=== PATIENT | male | born 1975 | race African-American/Black ===

== ENCOUNTER 2016-04-23 05:44 | Emergency (ER) | payer OTHER ==
[~2016-04-23] VITALS: Ht 175.3 cm; Wt 67.1 kg
[2016-04-23] MEDS ORDERED: NS IV 1000 ML 1,000 ML IV ONE (05:59)
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
[2016-04-23 06:07] LABS: BASOPHILS % (AUTO) 0 % (0-10); EOSINOPHILS % (AUTO) 0 % (0-10); LYMPHOCYTES # (AUTO) 0.7 X 10^3 (1.0-4.0); LYMPHOCYTES % (AUTO) 6 % (12-44); MEAN CORPUSCULAR HEMOGLOBIN 32 PG (25-34); MEAN CORPUSCULAR HGB CONC 36 G/DL (32-36); MEAN CORPUSCULAR VOLUME 89 FL (80-99); MEAN PLATELET VOLUME 8.8 FL (7.4-10.4); MONOCYTES # (AUTO) 0.5 X 10^3 (0.0-1.0); MONOCYTES % (AUTO) 5 % (0-12); NEUTROPHILS # (AUTO) 10.7 X 10^3 (1.8-7.8); NEUTROPHILS % (AUTO) 90 % (42-75); PLATELET COUNT 222 10^3/uL (130-400); RED BLOOD COUNT 5.02 10^6/uL (4.35-5.85); RED CELL DISTRIBUTION WIDTH 12.1 % (10.0-14.5); WHITE BLOOD COUNT 11.9 10^3/uL (4.3-11.0)
[2016-04-23] MEDS ORDERED: fentaNYL INJECTION 100 MCG/2 ML AMP IVP STA (06:14)
[2016-04-23 06:15] VITALS: BP 136/75
[2016-04-23 06:21] LABS: BAND NEUTROPHILS 0 %; BASOPHILS % (MANUAL) 0 %; EOSINOPHILS % (MANUAL) 0 %; LYMPHOCYTES % (MANUAL) 6 %; NEUTROPHILS % (MANUAL) 90 %; POIKILOCYTOSIS SLIGHT
[2016-04-23] MEDS ORDERED: LACTATED RINGERS 1,000 ML IV ONE (06:22)
[2016-04-23 06:47] LABS: ACETAMINOPHEN < 10 UG/ML (10-30); ALANINE AMINOTRANSFERASE 20 U/L (0-55); ALBUMIN 4.6 G/DL (3.2-4.5); ALCOHOL 128 MG/DL (<10); ANION GAP 13 MMOL/L (5-14); ASPARTATE AMINO TRANSFERASE 31 U/L (5-34); BILIRUBIN,TOTAL 0.4 MG/DL (0.1-1.0); BLOOD UREA NITROGEN 13 MG/DL (7-18); BUN/CREATININE RATIO 17; CARBON DIOXIDE 20 MMOL/L (21-32); CHLORIDE 107 MMOL/L (98-107); CREATININE SERUM 0.76 MG/DL (0.60-1.30); GFR ESTIMATED > 60; GLUCOSE 113 MG/DL (70-105); MAGNESIUM 2.3 MG/DL (1.8-2.4); SALICYLATE < 5.0 MG/DL (5.0-20.0); SODIUM 140 MMOL/L (135-145); TOTAL PROTEIN 7.3 G/DL (6.4-8.2)
[2016-04-23 06:58] VITALS: BP 116/79
[2016-04-23 06:58] LABS: TROPONIN I < 0.30 NG/ML (<0.30)
[2016-04-23] MEDS ORDERED: NS 100 ML (IVPB) BAG IV ONE (07:15)
[2016-04-23] MEDS ORDERED: CATHETER FLUSH 10 ML SYR IV PRN (07:15)
[2016-04-23] MEDS ORDERED: IOHEXOL 350 MG/ML 100 ML (OMNIPAQUE 350) VIAL IV ONE (07:15)
[2016-04-23 07:27] LABS: BILIRUBIN,URINE NEGATIVE (NEGATIVE); KETONES,URINE NEGATIVE (NEGATIVE); LEUKOCYTE ESTERASE ,URINE NEGATIVE (NEGATIVE); NITRITE,URINE NEGATIVE (NEGATIVE); PH,URINE 6 (5-9); PROTEIN,URINE 2+ (NEGATIVE); UROBILINOGEN,URINE NORMAL (NORMAL)
[2016-04-23 07:34] LABS: WBC,URINE RARE /HPF
--- NOTE | 2016-04-23 08:13 | Diagnostic Imaging Report ---
INDICATION: Patient found down PA chest obtained at 8:06 a.m. Heart and mediastinal silhouette are normal in appearance. The lungs are clear. There is no pneumothorax or pleural fluid. There is no overt bony abnormality in the chest. IMPRESSION: Negative chest. Dictated by: Dictated on workstation # [id number]
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
[2016-04-23] MEDS ORDERED: fentaNYL INJECTION 100 MCG/2 ML AMP IVP ONE (08:15)
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
[2016-04-23 10:46] VITALS: BP 129/72
[2016-05-15] MEDS ORDERED: SENN-20 PO (09:15)
[2016-05-15] MEDS ORDERED: GABA-488 PO (09:15)
[2016-05-15] MEDS ORDERED: OXYC-464 PO (09:15)
[2016-05-15] MEDS ORDERED: BACL10TA PO (09:15)
== END 2016-04-23 10:48 | disposition short-term general hospital (02) ==
LOC: EDUNIT# 05:44 → ER 05:46
DX: T68.XXXA Hypothermia, initial encounter (principal); T79.6XXA Traumatic ischemia of muscle, initial encounter; F10.129 Alcohol abuse with intoxication, unspecified; R29.898 Other symptoms and signs involving the musculoskeletal system; M47.812 Spondylosis without myelopathy or radiculopathy, cervical region; S12.401A Unspecified nondisplaced fracture of fifth cervical vertebra, initial encounter for closed fracture; Y90.6 Blood alcohol level of 120-199 mg/100 ml; W17.89XA Other fall from one level to another, initial encounter; Y99.8 Other external cause status
CPT/HCPCS: 36415; 51702; 70450; 71010; 71260; 72125; 72170; 74177; 80053; 80306; 80320; 80329; 81000; 82550; 83735; 84484; 85007; 85027; 93005; 93041; 96374; 96376

== ENCOUNTER 2016-04-30 11:10 | Inpatient (IN) | payer OTHER ==
[~2016-04-30] VITALS: Ht 175.3 cm; Wt 67.1 kg
[2016-04-30 17:20] VITALS: BP 108/73
[2016-04-30] MEDS ORDERED: FLU TRIvalent (5 YOA+) 2016-17 (AFLURIA) 0.5 ML IM ONE (17:30)
[2016-04-30] MEDS: oxyCODONE/APAP 7.5-325 MG (PERCOCET 7.5) TABLET PO PRN ×2 (18:34→23:01)
[2016-04-30] MEDS: BACITRACIN OINTMENT 28 GM TUBE TOP SCH (19:40)
[2016-04-30] MEDS ORDERED: MILK OF MAGNESIA 400 MG/5 ML 30 ML UDC PO PRN (20:00)
[2016-04-30] MEDS: GABAPENTIN 100 MG (NEURONTIN) CAP PO SCH (21:11)
[2016-04-30] MEDS: SENNA W/DOCUSATE (SENOKOT S) TABLET PO SCH (21:11)
[2016-04-30] MEDS: DOCUSATE SODIUM 100 MG (COLACE) CAP PO SCH (21:11)
[2016-04-30] MEDS: BACLOFEN 10 MG (LIORESAL) TAB PO PRN (21:12)
[2016-05-01] MEDS: BACLOFEN 10 MG (LIORESAL) TAB PO PRN ×2 (05:27→15:53)
[2016-05-01] MEDS: oxyCODONE/APAP 7.5-325 MG (PERCOCET 7.5) TABLET PO PRN ×4 (05:27→20:03)
[2016-05-01 05:41] VITALS: BP 109/64
[2016-05-01 05:58] LABS: BASOPHILS % (AUTO) 0 % (0-10); EOSINOPHILS # (AUTO) 0.1 10^3/uL (0.0-0.3); EOSINOPHILS % (AUTO) 2 % (0-10); LYMPHOCYTES # (AUTO) 1.4 X 10^3 (1.0-4.0); LYMPHOCYTES % (AUTO) 24 % (12-44); MEAN CORPUSCULAR HEMOGLOBIN 32 PG (25-34); MEAN CORPUSCULAR HGB CONC 35 G/DL (32-36); MEAN CORPUSCULAR VOLUME 91 FL (80-99); MEAN PLATELET VOLUME 8.5 FL (7.4-10.4); MONOCYTES # (AUTO) 0.7 X 10^3 (0.0-1.0); MONOCYTES % (AUTO) 12 % (0-12); NEUTROPHILS # (AUTO) 3.5 X 10^3 (1.8-7.8); NEUTROPHILS % (AUTO) 62 % (42-75); PLATELET COUNT 258 10^3/uL (130-400); RED BLOOD COUNT 4.48 10^6/uL (4.35-5.85); RED CELL DISTRIBUTION WIDTH 11.8 % (10.0-14.5); WHITE BLOOD COUNT 5.6 10^3/uL (4.3-11.0)
[2016-05-01 06:23] LABS: ALANINE AMINOTRANSFERASE 23 U/L (0-55); ALBUMIN 3.6 G/DL (3.2-4.5); ANION GAP 10 MMOL/L (5-14); ASPARTATE AMINO TRANSFERASE 15 U/L (5-34); BILIRUBIN,TOTAL 0.3 MG/DL (0.1-1.0); BLOOD UREA NITROGEN 24 MG/DL (7-18); BUN/CREATININE RATIO 26; CALCIUM 8.9 MG/DL (8.5-10.1); CARBON DIOXIDE 24 MMOL/L (21-32); CHLORIDE 101 MMOL/L (98-107); CREATININE SERUM 0.94 MG/DL (0.60-1.30); GFR ESTIMATED > 60; GLUCOSE 111 MG/DL (70-105); POTASSIUM 4.6 MMOL/L (3.6-5.0); SODIUM 135 MMOL/L (135-145); TOTAL PROTEIN 6.3 G/DL (6.4-8.2)
[2016-05-01] MEDS: GABAPENTIN 100 MG (NEURONTIN) CAP PO SCH ×3 (08:11→20:03)
[2016-05-01] MEDS: SENNA W/DOCUSATE (SENOKOT S) TABLET PO SCH ×2 (08:11→20:03)
[2016-05-01] MEDS: DOCUSATE SODIUM 100 MG (COLACE) CAP PO SCH ×2 (08:11→20:03)
--- NOTE | 2016-05-01 10:08 | ST Cognitive Linguistic Eval ---
Speech Evaluation-General Medical Diagnosis Cervical Fracture resulting in Right Sided Weakness Onset Date: Apr 30, 2016 Therapy Diagnosis Therapy Diagnosis: Cognitive Linguistic Skills WNL Precautions Precautions/Isolations: Fall Prevention, Standard Precautions Referral Referring Physician: Dr. Mahendra Nguyen Reason for Referral: Evaluation/Treatment Cognitive, Speech, and Language Evaluation Speech PLF-Current Status Prior Level of Function The patient denied prior challenges with speech, language, or cognition prior to admission. Subjective The patient was recently admitted to [facility] following cervical spine surgery (due to fracture) resulting in right sided weakness. The patient greeted the clinician appropriately and agreed to participate in the cognitive evaluation on this date. Language Eval: Auditory Comprehends Simple Yes/No Ques: Functional Indent/Objects Multiple Graham: Functional Ident/Pics in Multiple Graham: Functional Follows 1-Step Commands: Functional Follows Complex Directions: Functional Follows General Conversations: Functional Language Eval: Verbal Language Completes Spontaneous Greeting: Functional Produces Auto, Serial Info: Functional Imitates Simple Words/Phrases: Functional Word Finding: Functional Requests Basic Needs: Functional States Basic Personal Info: Functional Expresses Complex Ideas: Functional Cognitive Patient Orientation The patient is oriented to month, date, day of week, year, and location ( independently). Objective Cognitive Domain Attention: WNL Memory: WNL Problem Solving: Functional Executive Functions: WNL Objective Impression The patient demonstrated cognitive linguistic skills grossly within normal limits and appropriate for completion of ADL's. Communication/Social Cognition Comprehension: 5 Expression: 6 Social Interaction: 6 Problem Solvin Memory: 5 Speech Patient Assess Expression of Ideas/Wants: Expression (4) Understanding Vebal Content: Understands (4) Brief Interview-Mental Status: Yes Repetition of Three Words: Three (3) Temporal Orientation: Year: Correct (3) Temporal Orientation: Month: Accurate within 5 days(2) Temporal Orientation: Day: Correct (1) Recall : Wear to say "Sock": Yes, no cue required (2) Recall : Color: Yes, no cue required (2) Recall : Bed: Yes, no cue required (2) Speech-Plan Treatment Plan Speech Therapy Treatment Plan: Discontinue ST Evaluation, only. Rehab Potential: Good Safety Risks/Education Teaching Recipient: Patient Teaching Methods: Discussion Response to Teaching: Verbalize Understanding Education Topics Provided: Results, Plan of Care Time Speech Therapy Time In: 09:30 Speech Therapy Time Out: 09:45 Total Billed Time: 15 Billed Treatment Time 1, LUISANA MCKEON May 01, 2016 10:08
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
--- NOTE | 2016-05-01 14:22 | Occupational Ther Daily Note ---
OT Current Status-Daily Note Subjective No pain reported. Appearance Pt. in bed. Son in room. Pt. on phone using left hand throughout treatment session. Mental Status/Objective Patient Orientation: Person, Place, Time, Situation Functional [place] Measure 0=Not Assessed/NA 4=Minimal Assistance 1=Total Assistance 5=Supervision or Setup 2=Maximal Assistance 6=Modified [place] 3=Moderate Assistance 7=Complete [place] ADL-Treatment Functional [place] Measure 0=Not Assessed/NA 4=Minimal Assistance 1=Total Assistance 5=Supervision or Setup 2=Maximal Assistance 6=Modified [place] 3=Moderate Assistance 7=Complete IndependenceIRFPAI Quality Coding Scale 6 Independent with activity with or without an assistive device 5 Patient requires set up or clean up by helper. Patient completes activity by themselves 4 Supervision or touching assist (CGA). [place] provide cues , steadying assist 3 The helper provides less than half the effort to complete the activity 2 The helper provides more than half the effort to complete the activity 1 Dependent. The helper does all the effort to complete an activity 7 Patient refused to complete or attempt activity 9 The patient did not perform the activity before the current illness or injury 88 Not attempted due to Medical conditions or safety concerns Other Treatment Pt. reports that his soft collar is too tight in bed. Attempted to find pt. bigger collar, but one is not available. OT added soft fabric and velcro to existing collar, to make it more comfortable. Worked on right UE mobility in bed. Note that pt. has approximately 90 degrees active flexion in right shoulder at bed level. Is able to bend right elbow, but becomes fatigued after several motions. Pt. then able to work on active wrist extension, but no functional wrist flexion present. Very little finger flexion noted. OT applied gentle PROM stretch to right shoulder to approximately 110 degrees. No pain noted. Scapular glide intact. No subluxation noted. Facilitated active movements in shoulder/elbow, as well as active movements against resistance. Note that pt. fatigues quickly with continued exercises. Completed gentle stretch to right fingers into extension. All needs met in room. Education OT Patient Education: Correct positioning, Exercise program Teaching Recipient: Patient Teaching Methods: Demonstration, Discussion Response to Teaching: Verbalize Understanding, Return Demonstration OT Short Term Goals Short Term Goals Time Frame: May 08, 2016 Eating(FIM): 6 Grooming(FIM): 5 Bathing(FIM): 5 Transfers (B,C,W/C) (FIM): 4 Toilet/Commode Transfer(FIM): 4 Shower Transfer(FIM): 4 Additional Short Term Goals: 1-Demonstrate ADL Tasks, 2-Verbalize Understanding , 3-ImproveStrength/Devin 1=Demonstrate adherence to instructed precautions during ADL tasks. 2=Patient will verbalize/demonstrate understanding of assistive devices/ modifications for ADL. 3=Patient will improve strength/tolerance for activity to enable patient to perform ADL's. OT Halfway Goals Halfway Goals Time Frame: May 22, 2016 Eating (FIM): 6 Eating (QC): 6 Groomin Oral Hygiene (QC): 6 Bathing(FIM): 5 Shower/Bathe Self (QC): 5 Upper Body Dressing(FIM): 6 Upper Body Dressing (QC): 6 Lower Body Dressing(FIM): 6 Lower Body Dressing (QC): 6 On/Off Footwear (QC): 6 Toileting(FIM): 6 Toileting Hygiene (QC): 6 Transfers (B,C,W/C) (FIM): 5 Toilet/Commode Transfer(FIM): 6 Toilet/Commode Transfer (QC): 6 Shower Transfer(FIM): 5 Additional Goals: 1-Demonstrate ADL Tasks, 2-Verbalize Understanding, 3- ImproveStrength/Devin 1=Demonstrate adherence to instructed precautions during ADL tasks. 2=Patient will verbalize/demonstrate understanding of assistive devices/ modifications for ADL. 3=Patient will improve strength/tolerance for activity to enable patient to perform ADL's. OT Education/Plan Problem List/Assessment Assessment: Decreased Activ Tolerance, Decreased UE Strength, Impaired Bed Mobility, Impaired Coordination, Impaired I ADL's, Impaired Self-Care Skills Discharge Recommendations Plan/Recommendations: Continue POC Therapy D/C Recommendations: Home w/ Family Support, Occupational Therapy Home Care, Scheduled Assistance Equpiment Recommendations-D/C: Extended Bath Bench, Hip Kit Treatment Plan/Plan of Care Treatment,Training & Education: Yes Patient would benefit from OT for education, treatment and training to promote independence in ADL's, mobility, safety and/or upper extremity function for ADL' s. Plan of Care: ADL Retraining, Caregiver Training, Functional Mobility, Group Exercise/Act as Ind, UE Funct Exercise/Act Treatment Duration: May 22, 2016 Visits Per Week: 10-12 Minutes/Day (M-F): 60-90 Minutes/Day (Sat/Chan): PRN Agreement: Yes Rehab Potential: Good Time/GCodes Start Time: 11:00 Stop Time: 11:30 Total Time Billed (hr/min): 30 Billed Treatment Time 1, EX x 2 KAVITA ORTEGA OT May 01, 2016 14:22
--- NOTE | 2016-05-01 14:32 | Physical Therapy Daily Note ---
PT Daily Note-Current Subjective Agrees to PT. No complaints. Transfers Functional [place] Measure 0=Not Assessed/NA 4=Minimal Assistance 1=Total Assistance 5=Supervision or Setup 2=Maximal Assistance 6=Modified [place] 3=Moderate Assistance 7=Complete IndependenceIRFPAI Quality Coding Scale 6 Independent with activity with or without an assistive device 5 Patient requires set up or clean up by helper. Patient completes activity by themselves 4 Supervision or touching assist (CGA). [place] provide cues , steadying assist 3 The helper provides less than half the effort to complete the activity 2 The helper provides more than half the effort to complete the activity 1 Dependent. The helper does all the effort to complete an activity 7 Patient refused to complete or attempt activity 9 The patient did not perform the activity before the current illness or injury 88 Not attempted due to Medical conditions or safety concerns Min assist with sup to/from sit EOB. Pt needs mod assist to stand initially. Pt needed mod assist to transfer on/off the nu step. Gait Training Gait with FWW with platform with min assist with PAT to provide DF assist on the right. Gt 150 ft x 2. Pt also ambulated x 30 ft x 2 with turns with min assist. Up/down curb step with min assist and assist to fully lift right foot onto step. Stair Training Stairs (FIM): 1 #of Steps: 1 1 Step (curb) (QC): 4 4 Steps (QC): 88 12 Steps (QC): 88 Stairs: Pattern: Step to Exercises NuStep Minutes: 15 NuStep Workload: 5 Assessment Current Status: Good Progress Pt very motivated and did well with treatment this pm. Pt already using compensatory techniques to improve mobility. PT Short Term Goals Short Term Goals Time Frame: May 08, 2016 Transfers (B,C,W/C) (FIM): 4 Gait (FIM): 4 PT [facility] Goals Manager Transition Goals PT Manager Transition Goals Time Frame: May 22, 2016 Transfers (B,C,W/C) (FIM): 6 Sit to Lying (QC): 6 Lying-Sitting on Side/Bed(QC): 6 Sit to Stand (QC): 6 Roll Left to Right (QC): 6 Chair/Bwh-xu-Serxw Xfer(QC): 6 Car Transfer (QC): 6 Does the Patient Walk: Yes Gait (FIM): 6 Gait distance (FIM): 3=150 ft Walk 10 feet (QC): 6 Walk 10ft-Uneven Surface(QC): 6 Walk 50ft with 2 Turns (QC): 6 Walk 150 ft (QC): 6 Gait Level of Assist: 6 Gait Assistive Device: Walker Platform (or cand) Does the Pt use WC or Scooter?: No Stairs (FIM): 6 # of Steps: 12 1 Step (curb) (QC): 6 4 Steps (QC): 6 12 Steps (QC): 6 Picking up an Object (QC): 5 PT Plan Problem List Problem List: Activity Tolerance, Functional Strength, Safety Treatment/Plan Treatment Plan: Continue Plan of Care Treatment Plan: Bed Mobility, Education, Functional Activity Devin, Functional Strength, Group Therapy, Gait, Safety, Therapeutic Exercise, Transfers Treatment Duration: May 22, 2016 Visits Per Week: 10-15 Minutes/Day (M-F): 60-90 Safety Risks/Education Patient Education: Steps Teaching Recipient: Patient Teaching Methods: Demonstration, Discussion Response to Teaching: Reinforcement Needed Time/GCodes Time In: 1330 Time Out: 1400 Total Billed Treatment Time: 30 Total Billed Treatment visit GT 15 EX 15 DEACON SALAZAR PT May 01, 2016 14:32
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
[2016-05-01 18:06] VITALS: BP 104/62
[2016-05-01] MEDS: LACTULOSE SYRUP 10GM/15ML (ENULOSE) 30ML UDC PO PRN (20:08)
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
[2016-05-02] MEDS: oxyCODONE/APAP 7.5-325 MG (PERCOCET 7.5) TABLET PO PRN ×4 (00:53→18:04)
[2016-05-02] MEDS: BACLOFEN 10 MG (LIORESAL) TAB PO PRN ×3 (00:53→18:04)
[2016-05-02 05:53] VITALS: BP 107/66
--- NOTE | 2016-05-02 08:38 | Progress Note (SOAP) ---
Subjective Subjective/Events-last exam cervical spine fracture. Constipation. To use suppository today. Objective Exam Vital Signs Date Time Temp Pulse Resp B/P (MAP) Pulse Ox O2 Delivery O2 Flow Rate FiO2 05/02/16 05:53 98.1 61 18 107/66 100 Room Air 05/01/16 20:53 Room Air 05/01/16 18:06 97.4 70 16 104/62 97 05/01/16 09:00 Room Air I & O 05/02/16 07:00 Intake Total 1600 ml Output Total 650 ml Balance 950 ml Capillary Refill : General Appearance: No Apparent Distress HEENT: Normal ENT Inspection Neck: Other (wearing a collar) Respiratory: Chest Non Tender, No Accessory Muscle Use, No Respiratory Distress Cardiovascular: Regular Rate, Rhythm, No Murmur Gastrointestinal: non tender, soft Assessment/Plan Assessment/Plan Assess & Plan/Chief Complaint cervical fracture. Ambulatory dysfunction. t history of alcoholism. History of tobaccoism. . 05/02/16. Cervical fracture. Ambulatory dysfunction. History of alcoholism. History of tobaccoism. Patient still constipated Clinical Quality Measures DVT/VTE Risk/Contraindication: Risk Factor Score Per Nursin RFS Level Per Nursing on Admit: 4+=Very High BURT GARZA DO May 02, 2016 08:38
[2016-05-02] MEDS: GABAPENTIN 100 MG (NEURONTIN) CAP PO SCH ×3 (08:50→20:29)
[2016-05-02] MEDS: DOCUSATE SODIUM 100 MG (COLACE) CAP PO SCH ×2 (08:50→20:29)
[2016-05-02] MEDS: SENNA W/DOCUSATE (SENOKOT S) TABLET PO SCH ×2 (08:50→20:30)
--- NOTE | 2016-05-02 10:53 | Physical Therapy Daily Note ---
PT Daily Note-Current Subjective Agreeable. Reports he is a bit sore today for therapy yesterday. But reports "that's ok, I want to get stronger." Mental Status Patient Orientation: Person, Place, Time, Situation Transfers Functional [place] Measure 0=Not Assessed/NA 4=Minimal Assistance 1=Total Assistance 5=Supervision or Setup 2=Maximal Assistance 6=Modified [place] 3=Moderate Assistance 7=Complete IndependenceIRFPAI Quality Coding Scale 6 Independent with activity with or without an assistive device 5 Patient requires set up or clean up by helper. Patient completes activity by themselves 4 Supervision or touching assist (CGA). [place] provide cues , steadying assist 3 The helper provides less than half the effort to complete the activity 2 The helper provides more than half the effort to complete the activity 1 Dependent. The helper does all the effort to complete an activity 7 Patient refused to complete or attempt activity 9 The patient did not perform the activity before the current illness or injury 88 Not attempted due to Medical conditions or safety concerns Transfers (B, C, W/C) (FIM): 4 Supine to/from Sit: 4 Sit to/from Stand: 4 Min assist with bed mobility and transfers. Min assist with skilled cues for hand placemnt for sit to from stand transfer. Sup to from sit x 3 reps. Sit to from stand x 10 reps throughout course of treatment. Gait Training Does the Patient Walk?: Yes Gait (FIM): 4 Distance: 150 ft x 3; 50 ft x 2 Gait Assistive Device: Walker Platform PAT used to promote DF on the right. Pt able to clear right foot 50% of the time and drags the other 50%. Work on hip flexion to promote foot clearing. Skilled cues to compensate. Exercises Supine Ex: Bridging, Ankle pumps, Pelvic tilt, Quad Set, Glut sets, Heel Slides , Short Arc Quads, Straight leg raise, Hip abd/add Supine Reps: 15 (2# on the left;to promote strength for functional transfers and strength) Seated Therapy Exercises: Long arc quads, Hip flexion Seated Reps: 15 (2# on the left) NuStep Minutes: 10 NuStep Workload: 4 (For LE strength and functional act tolerance for mod indep tfr and gait) Assessment Current Status: Good Progress Strngth progressing as is functional gait. Motivated. PT Short Term Goals Short Term Goals Time Frame: May 08, 2016 Transfers (B,C,W/C) (FIM): 4 Gait (FIM): 4 PT Fpc Goals Fpc Goals PT Elevator Starter Goals Time Frame: May 22, 2016 Transfers (B,C,W/C) (FIM): 6 Sit to Lying (QC): 6 Lying-Sitting on Side/Bed(QC): 6 Sit to Stand (QC): 6 Roll Left to Right (QC): 6 Chair/Vfh-hf-Oxuxs Xfer(QC): 6 Car Transfer (QC): 6 Does the Patient Walk: Yes Gait (FIM): 6 Gait distance (FIM): 3=150 ft Walk 10 feet (QC): 6 Walk 10ft-Uneven Surface(QC): 6 Walk 50ft with 2 Turns (QC): 6 Walk 150 ft (QC): 6 Gait Level of Assist: 6 Gait Assistive Device: Walker Platform (or cand) Does the Pt use WC or Scooter?: No Stairs (FIM): 6 # of Steps: 12 1 Step (curb) (QC): 6 4 Steps (QC): 6 12 Steps (QC): 6 Picking up an Object (QC): 5 PT Plan Problem List Problem List: Activity Tolerance, Functional Strength, Safety, Balance, Gait, Transfer, Bed Mobility Treatment/Plan Treatment Plan: Continue Plan of Care Treatment Plan: Bed Mobility, Education, Functional Activity Devin, Functional Strength, Group Therapy, Gait, Safety, Therapeutic Exercise, Transfers Treatment Duration: May 22, 2016 Visits Per Week: 10-15 Minutes/Day (M-F): 60-90 Minutes/Day (Sat/Chan): prn Safety Risks/Education Patient Education: Gait Training, Transfer Techniques Teaching Recipient: Patient Teaching Methods: Demonstration, Discussion Time/GCodes Time In: 850 Time Out: 950 Total Billed Treatment Time: 60 Total Billed Treatment visit GT 15 FA 15 EX 30 DEACON SALAZAR PT May 02, 2016 10:53
--- NOTE | 2016-05-02 11:00 | Occupational Ther Daily Note ---
OT Current Status-Daily Note Subjective Pt alert, sitting in recliner. Pt agreed to therapy. Pt stated that his arms were stiff from therapy yesterday. Mental Status/Objective Patient Orientation: Person, Place, Time, Situation Functional [place] Measure 0=Not Assessed/NA 4=Minimal Assistance 1=Total Assistance 5=Supervision or Setup 2=Maximal Assistance 6=Modified [place] 3=Moderate Assistance 7=Complete [place] ADL-Treatment After set up, pt was able to complete upper body bathing. Pt demonstrates movement with R UE, approximately 90-100 degrees shldr flexion. R Elbow flex/ ext noted though not to end range and weak. Pt completed tasks with L UE. AE introduced (dressing stick, long handle shoe horn, long handle sponge, cyber defense forensics analyst, sock aide). With assistance pt was able to doff socks using drsg stick with min A then used sock aide to don sock with mod A. Pt had on pants and did not want to change them and only had hospital gown available for upper body dressing. Pt demonstrated ability to move L LE up toward body so he can complete ADLs. R LE extends unable at this time to flex and bring up to body. Pt stated that he had already completed oral care and that nrsg cleansed lower body good enough the night before. Family and friends in room at end of treatment. After therapy, pt sitting in recliner with call light/phone in reach. All needs met in room. Functional [place] Measure 0=Not Assessed/NA 4=Minimal Assistance 1=Total Assistance 5=Supervision or Setup 2=Maximal Assistance 6=Modified [place] 3=Moderate Assistance 7=Complete IndependenceIRFPAI Quality Coding Scale 6 Independent with activity with or without an assistive device 5 Patient requires set up or clean up by helper. Patient completes activity by themselves 4 Supervision or touching assist (CGA). [place] provide cues , steadying assist 3 The helper provides less than half the effort to complete the activity 2 The helper provides more than half the effort to complete the activity 1 Dependent. The helper does all the effort to complete an activity 7 Patient refused to complete or attempt activity 9 The patient did not perform the activity before the current illness or injury 88 Not attempted due to Medical conditions or safety concerns Bathing (FIM): 2 OT Short Term Goals Short Term Goals Time Frame: May 08, 2016 Eating(FIM): 6 Grooming(FIM): 5 Bathing(FIM): 5 Transfers (B,C,W/C) (FIM): 4 Toilet/Commode Transfer(FIM): 4 Shower Transfer(FIM): 4 Additional Short Term Goals: 1-Demonstrate ADL Tasks, 2-Verbalize Understanding , 3-ImproveStrength/Devin 1=Demonstrate adherence to instructed precautions during ADL tasks. 2=Patient will verbalize/demonstrate understanding of assistive devices/ modifications for ADL. 3=Patient will improve strength/tolerance for activity to enable patient to perform ADL's. OT Long-Term Goals Product Examiner Goals Time Frame: May 22, 2016 Eating (FIM): 6 Eating (QC): 6 Groomin Oral Hygiene (QC): 6 Bathing(FIM): 5 Shower/Bathe Self (QC): 5 Upper Body Dressing(FIM): 6 Upper Body Dressing (QC): 6 Lower Body Dressing(FIM): 6 Lower Body Dressing (QC): 6 On/Off Footwear (QC): 6 Toileting(FIM): 6 Toileting Hygiene (QC): 6 Transfers (B,C,W/C) (FIM): 5 Toilet/Commode Transfer(FIM): 6 Toilet/Commode Transfer (QC): 6 Shower Transfer(FIM): 5 Additional Goals: 1-Demonstrate ADL Tasks, 2-Verbalize Understanding, 3- ImproveStrength/Devin 1=Demonstrate adherence to instructed precautions during ADL tasks. 2=Patient will verbalize/demonstrate understanding of assistive devices/ modifications for ADL. 3=Patient will improve strength/tolerance for activity to enable patient to perform ADL's. OT Education/Plan Discharge Recommendations Plan/Recommendations: Continue POC Treatment Plan/Plan of Care Patient would benefit from OT for education, treatment and training to promote independence in ADL's, mobility, safety and/or upper extremity function for ADL' s. Plan of Care: ADL Retraining, Caregiver Training, Functional Mobility, Group Exercise/Act as Ind, UE Funct Exercise/Act Treatment Duration: May 22, 2016 Visits Per Week: 10-12 Minutes/Day (M-F): 60-90 Minutes/Day (Sat/Chan): PRN Agreement: Yes Rehab Potential: Good Time/GCodes Start Time: 10:00 Stop Time: 11:00 Total Time Billed (hr/min): 60 Billed Treatment Time 1 visit-ADL 3 (50 min) FA 1 (10 min) DEACON CARPENTER May 02, 2016 10:59
[2016-05-02] MEDS: LACTULOSE SYRUP 10GM/15ML (ENULOSE) 30ML UDC PO PRN ×2 (13:17→20:29)
--- NOTE | 2016-05-02 15:03 | Therapy Group Daily Note ---
Therapy Daily Group Note Patient Education Topic Home Safety Exercises LE Seated Exercise, Balance, Sit to/from Stand, Stretching, Gross Motor, Fine Motor Other/Notes Participated in OT/PT therapeutic group activity. Tasks performed with intent to stimulate skills needed for discharge plan. Ambulated to group 75ft with CGA using platform walker. Performed seated and standing exercises. Worked on dynamic balance in standing to perform dice and abrams bag toss. Worked on multi step planning during high attention activities. Cognitive facilitation during group to stimulate critical thinking and educate on home safety. Pt was able to stand with CGA for balance. He ambulated 75ft with a FWW and CGA back to his room. Start Time: 13:00 Stop Time: 14:15 Total Billed Treatment Time: 75 Total Billed Treatment visit, therapeutic group 75 minutes ZEINAB LEE PT May 02, 2016 15:03
[2016-05-02 17:29] VITALS: BP 117/69
[2016-05-02] MEDS: BACITRACIN OINTMENT 28 GM TUBE TOP SCH (18:11)
[2016-05-02] MEDS: BISACODYL 10 MG SUPP (DULCOLAX) PR PRN (20:29)
[2016-05-03] MEDS: oxyCODONE/APAP 7.5-325 MG (PERCOCET 7.5) TABLET PO PRN ×4 (02:16→19:29)
[2016-05-03] MEDS: BACLOFEN 10 MG (LIORESAL) TAB PO PRN ×2 (02:16→12:57)
[2016-05-03 05:10] VITALS: BP 108/65
[2016-05-03] MEDS: GABAPENTIN 100 MG (NEURONTIN) CAP PO SCH ×3 (08:05→19:28)
[2016-05-03] MEDS: SENNA W/DOCUSATE (SENOKOT S) TABLET PO SCH ×2 (08:05→19:28)
[2016-05-03] MEDS: DOCUSATE SODIUM 100 MG (COLACE) CAP PO SCH ×2 (08:05→19:28)
--- NOTE | 2016-05-03 10:51 | Physical Therapy Daily Note ---
PT Daily Note-Current Subjective Pt agreeable to treatment. No pain reported. Mental Status Patient Orientation: Person, Place, Time, Situation Transfers Functional [place] Measure 0=Not Assessed/NA 4=Minimal Assistance 1=Total Assistance 5=Supervision or Setup 2=Maximal Assistance 6=Modified [place] 3=Moderate Assistance 7=Complete IndependenceIRFPAI Quality Coding Scale 6 Independent with activity with or without an assistive device 5 Patient requires set up or clean up by helper. Patient completes activity by themselves 4 Supervision or touching assist (CGA). [place] provide cues , steadying assist 3 The helper provides less than half the effort to complete the activity 2 The helper provides more than half the effort to complete the activity 1 Dependent. The helper does all the effort to complete an activity 7 Patient refused to complete or attempt activity 9 The patient did not perform the activity before the current illness or injury 88 Not attempted due to Medical conditions or safety concerns Transfers (B, C, W/C) (FIM): 5 Supine to/from Sit: 5 Sit to/from Stand: 5 Sit to Stand (QC): 5 Gait Training Does the Patient Walk?: Yes Distance: 150ft x4 Gait Level of Assist: 6 Gait Persons Needed: 1 Gait Assistive Device: Walker Platform Wheelchair Training Does the Pt Use a Wheelchair?: No Exercises Supine Ex: LE Protocol Supine Reps: 10 Assessment Pt is very motivated to ambulate with more (I). He would benefit from an AFO. PT Short Term Goals Short Term Goals Time Frame: May 08, 2016 Transfers (B,C,W/C) (FIM): 4 Gait (FIM): 4 PT Fpc Goals Fpc Goals PT Fpc Goals Time Frame: May 22, 2016 Transfers (B,C,W/C) (FIM): 6 Sit to Lying (QC): 6 Lying-Sitting on Side/Bed(QC): 6 Sit to Stand (QC): 6 Roll Left to Right (QC): 6 Chair/Vbi-kh-Kgmtq Xfer(QC): 6 Car Transfer (QC): 6 Does the Patient Walk: Yes Gait (FIM): 6 Gait distance (FIM): 3=150 ft Walk 10 feet (QC): 6 Walk 10ft-Uneven Surface(QC): 6 Walk 50ft with 2 Turns (QC): 6 Walk 150 ft (QC): 6 Gait Level of Assist: 6 Gait Assistive Device: Walker Platform (or cand) Does the Pt use WC or Scooter?: No Stairs (FIM): 6 # of Steps: 12 1 Step (curb) (QC): 6 4 Steps (QC): 6 12 Steps (QC): 6 Picking up an Object (QC): 5 PT Plan Treatment/Plan Treatment Plan: Continue Plan of Care Treatment Plan: Bed Mobility, Education, Functional Activity Devin, Functional Strength, Group Therapy, Gait, Safety, Therapeutic Exercise, Transfers Treatment Duration: May 22, 2016 Visits Per Week: 10-15 Minutes/Day (M-F): 60-90 Minutes/Day (Sat/Chan): prn Time/GCodes Time In: 0945 Time Out: 1015 Total Billed Treatment Time: 30 Total Billed Treatment 1, gt 30' OLIVIA ESPINO PT May 03, 2016 10:50
[2016-05-03 18:31] VITALS: BP 129/77
[2016-05-04] MEDS: BACLOFEN 10 MG (LIORESAL) TAB PO PRN ×2 (02:57→18:03)
[2016-05-04] MEDS: oxyCODONE/APAP 7.5-325 MG (PERCOCET 7.5) TABLET PO PRN ×3 (02:57→18:04)
--- OUTSIDE RECORDS SUMMARY | 2016-05-04 05:12 | XMS REPORT | Continuity of Care Document ---
[facility] Address Unknown Phone Unavailable Allergies Medications Problems Procedures Results Encounters ACCT No. Visit Date/Time Discharge Status Pt. Type Provider Facility Loc./Unit Complaint [id number] 02/07/2014 11:02:00 2013 23:59:00 DIS Outpatient Kimberlee Elaine APRN [facility]
--- OUTSIDE RECORDS SUMMARY | 2016-05-04 05:12 | XMS REPORT | Continuity of Care Document ---
Author Author [employer] Organization [place] Address Unknown Phone Unavailable Care Team Providers Care Fittings Finisher Name Role Phone [employer] Unavailable Unavailable Problems Problem Status Onset Date Classification Date Reported Comments Source Tobacco user (finding) Active Problem 12/10/2012 1Added by Discern Expert based on Social History Documentation [place] Medications Allergies, Adverse Reactions, Alerts Substance Category Reaction Severity Reaction type Status Date Reported Comments Source NKA allergy to substance Allergy Active [place]. Immunizations Results Vital Signs Encounters Location Location Details Encounter Type Encounter Number Reason For Visit Attending Provider ADM Date DC Date Status Source [facility] [id number] Emergency [id number] DEBBIE SYLVESTER 12/05/2012 Active [place]. Procedures Plan of Care Social History Assessment and Plan Family History Value Date Source Advance Directives Order Name Results Value Date Source
[2016-05-04 05:20] VITALS: BP 113/67
[2016-05-04] MEDS: SENNA W/DOCUSATE (SENOKOT S) TABLET PO SCH ×2 (09:11→20:43)
[2016-05-04] MEDS: DOCUSATE SODIUM 100 MG (COLACE) CAP PO SCH ×2 (09:11→20:43)
[2016-05-04] MEDS: GABAPENTIN 100 MG (NEURONTIN) CAP PO SCH ×3 (09:11→20:43)
[2016-05-04] MEDS: BACITRACIN OINTMENT 28 GM TUBE TOP SCH (18:03)
[2016-05-04 18:46] VITALS: BP 110/64
[2016-05-05] MEDS: BACLOFEN 10 MG (LIORESAL) TAB PO PRN (02:51)
[2016-05-05] MEDS: oxyCODONE/APAP 7.5-325 MG (PERCOCET 7.5) TABLET PO PRN ×4 (02:51→21:02)
[2016-05-05 05:06] VITALS: BP 105/63
[2016-05-05] MEDS: DOCUSATE SODIUM 100 MG (COLACE) CAP PO SCH ×2 (08:19→21:01)
[2016-05-05] MEDS: GABAPENTIN 100 MG (NEURONTIN) CAP PO SCH ×3 (08:19→21:02)
[2016-05-05] MEDS: SENNA W/DOCUSATE (SENOKOT S) TABLET PO SCH ×2 (08:19→21:02)
--- NOTE | 2016-05-05 08:46 | Progress Note (SOAP) ---
Subjective Subjective/Events-last exam cervical spine fracture. Constipation. Muscle spasm. Patient has improved in getting around. Patient using his walker Objective Exam Vital Signs Date Time Temp Pulse Resp B/P (MAP) Pulse Ox O2 Delivery O2 Flow Rate FiO2 05/05/16 05:06 97.7 69 18 105/63 98 Room Air 05/04/16 20:56 Room Air 05/04/16 18:46 98.8 62 16 110/64 97 Room Air 05/04/16 09:00 Room Air I & O 05/05/16 07:00 Intake Total 1100 ml Output Total 900 ml Balance 200 ml Capillary Refill : General Appearance: No Apparent Distress, Thin HEENT: Normal ENT Inspection Neck: Other (cervical collar) Respiratory: Chest Non Tender, No Accessory Muscle Use, No Respiratory Distress Cardiovascular: Regular Rate, Rhythm, No Murmur Gastrointestinal: non tender, soft Assessment/Plan Assessment/Plan Assess & Plan/Chief Complaint cervical fracture. Ambulatory dysfunction. t history of alcoholism. History of tobaccoism. . 05/02/16. Cervical fracture. Ambulatory dysfunction. History of alcoholism. History of tobaccoism. Patient still constipated. . 05/05/16. Cervical fracture. Ambulatory dysfunction. History of alcoholism. History of tobaccoism. Patient getting around is 1 assist with walker. Patient not stable in his feet yet Clinical Quality Measures DVT/VTE Risk/Contraindication: Risk Factor Score Per Nursin RFS Level Per Nursing on Admit: 4+=Very High BURT GARZA DO May 05, 2016 08:46
--- NOTE | 2016-05-05 09:02 | Physical Therapy Daily Note ---
PT Daily Note-Current Subjective Patient in bed pre tx, agrees reluctantly to PT. Patient states he has 10/10 pain in his right leg and low back and says he has been having a lot of spasms in his right leg. Nurse notified and he was given pain meds, doctor adjusted meds or spasms. Appearance Patient in recliner post tx with nurse call, phone, tray, all needs met. SO in the room. Mental Status Patient Orientation: Normal For Age Cervical collar Transfers Functional [place] Measure 0=Not Assessed/NA 4=Minimal Assistance 1=Total Assistance 5=Supervision or Setup 2=Maximal Assistance 6=Modified [place] 3=Moderate Assistance 7=Complete IndependenceIRFPAI Quality Coding Scale 6 Independent with activity with or without an assistive device 5 Patient requires set up or clean up by helper. Patient completes activity by themselves 4 Supervision or touching assist (CGA). [place] provide cues , steadying assist 3 The helper provides less than half the effort to complete the activity 2 The helper provides more than half the effort to complete the activity 1 Dependent. The helper does all the effort to complete an activity 7 Patient refused to complete or attempt activity 9 The patient did not perform the activity before the current illness or injury 88 Not attempted due to Medical conditions or safety concerns Transfers (B, C, W/C) (FIM): 2 Scootin Rollin Supine to/from Sit: 2 Sit to/from Stand: 4 CGA for sit to stand, max assist to sit up in the bed Gait Training Gait (FIM): 4 Distance: 200'x2 Gait Level of Assist: 4 (CGA) Gait Persons Needed: 1 Gait Assistive Device: Walker Platform got AFO for right leg, still has right knee hyperextension and toe still drags some Exercises Standing: Hip Abduction, Marching, Mini squats Standing Reps: 20 LAQ right side for 5 min NuStep Minutes: 15 NuStep Workload: 5 Treatments bed mobility and transfers, ambulation, functional strengthening, patient was toileted once too Assessment Current Status: Fair Progress poor bed mobility but other than that mobility is improving PT Short Term Goals Short Term Goals Time Frame: May 08, 2016 Transfers (B,C,W/C) (FIM): 4 Gait (FIM): 4 PT Youth Care Specialist Goals Group Home Goals PT Group Home Goals Time Frame: May 22, 2016 Transfers (B,C,W/C) (FIM): 6 Sit to Lying (QC): 6 Lying-Sitting on Side/Bed(QC): 6 Sit to Stand (QC): 6 Roll Left to Right (QC): 6 Chair/[place] Xfer(QC): 6 Car Transfer (QC): 6 Does the Patient Walk: Yes Gait (FIM): 6 Gait distance (FIM): 3=150 ft Walk 10 feet (QC): 6 Walk 10ft-Uneven Surface(QC): 6 Walk 50ft with 2 Turns (QC): 6 Walk 150 ft (QC): 6 Gait Level of Assist: 6 Gait Assistive Device: Walker Platform (or cand) Does the Pt use WC or Scooter?: No Stairs (FIM): 6 # of Steps: 12 1 Step (curb) (QC): 6 4 Steps (QC): 6 12 Steps (QC): 6 Picking up an Object (QC): 5 PT Plan Problem List Problem List: Activity Tolerance, Functional Strength, Safety, Balance, Gait, Transfer, Bed Mobility, ROM Treatment/Plan Treatment Plan: Continue Plan of Care Treatment Plan: Bed Mobility, Education, Functional Activity Devin, Functional Strength, Group Therapy, Gait, Safety, Therapeutic Exercise, Transfers Treatment Duration: May 22, 2016 Visits Per Week: 10-15 Minutes/Day (M-F): 60-90 Minutes/Day (Sat/Chan): prn Safety Risks/Education Patient Education: Gait Training, Transfer Techniques, Correct Positioning, Safety Issues Teaching Recipient: Patient Teaching Methods: Demonstration, Discussion Response to Teaching: Reinforcement Needed Time/GCodes Time In: 800 Time Out: 900 Total Billed Treatment Time: 60 Total Billed Treatment 1 visit GT 15 min FA 15 min EX 30 min SANGEETHA RIVAS PT May 05, 2016 09:02
--- NOTE | 2016-05-05 12:06 | Occupational Ther Daily Note ---
OT Current Status-Daily Note Subjective Pt. is reporting significant spasms in legs and right arm. Appearance Pt. is up in chair. Significant other is in room. She states that they have 5 steps to get into their trailer, and she is concerned about this. Mental Status/Objective Patient Orientation: Person, Place, Time, Situation Functional [place] Measure 0=Not Assessed/NA 4=Minimal Assistance 1=Total Assistance 5=Supervision or Setup 2=Maximal Assistance 6=Modified [place] 3=Moderate Assistance 7=Complete [place] ADL-Treatment Functional [place] Measure 0=Not Assessed/NA 4=Minimal Assistance 1=Total Assistance 5=Supervision or Setup 2=Maximal Assistance 6=Modified [place] 3=Moderate Assistance 7=Complete IndependenceIRFPAI Quality Coding Scale 6 Independent with activity with or without an assistive device 5 Patient requires set up or clean up by helper. Patient completes activity by themselves 4 Supervision or touching assist (CGA). [place] provide cues , steadying assist 3 The helper provides less than half the effort to complete the activity 2 The helper provides more than half the effort to complete the activity 1 Dependent. The helper does all the effort to complete an activity 7 Patient refused to complete or attempt activity 9 The patient did not perform the activity before the current illness or injury 88 Not attempted due to Medical conditions or safety concerns Bathing (FIM): 3 (Pt. does require mod assist that is given by his significant other.) Shower/Bathe Self (QC): 4 Upper Body (FIM): 4 (Pt. requires min assist to doff/don neck brace.) Upper Body Dressing (QC): 4 Lower Body Dressing (FIM): 2 (Overall, pt. requires max assistance to doff/don socks/pants, and underwear. Pt. does have equipment in room, but due to shower size, is unable to manipulate equipment to adequately complete task.) Lower Body Dressing (QC): 2 On/Off Footwear (QC): 2 Transfers (B, C, W/C) (FIM): 4 Shower Transfer(FIM): 4 Other Treatment After shower, pt. explains concerns regarding hands, which seem to have abundance of skin cells that are noticeable after shower. OT exfoliated hands by using dry towel, and applied lotion to hands. Pt. is educated on how to do this on his own. Pt. is also issued fine motor tasks to use in the room, to encourage use of right hand. Pt. verbalizes understanding of tasks, and of incorporating right hand in daily tasks to increase overall use. Education OT Patient Education: Correct positioning, Exercise program, Instructions to caregiver, Modified ADL techniques, Progress toward Goal/Update tx plan, Purpose of tx/functional activities, Reviewed precautions, Rehab process, Transfer techniques, Use of adapted equipment Teaching Recipient: Patient, Significant Other Teaching Methods: Demonstration, Discussion Response to Teaching: Verbalize Understanding, Return Demonstration OT Short Term Goals Short Term Goals Time Frame: May 08, 2016 Eating(FIM): 6 Grooming(FIM): 5 Bathing(FIM): 5 Transfers (B,C,W/C) (FIM): 4 Toilet/Commode Transfer(FIM): 4 Shower Transfer(FIM): 4 Additional Short Term Goals: 1-Demonstrate ADL Tasks, 2-Verbalize Understanding , 3-ImproveStrength/Devin 1=Demonstrate adherence to instructed precautions during ADL tasks. 2=Patient will verbalize/demonstrate understanding of assistive devices/ modifications for ADL. 3=Patient will improve strength/tolerance for activity to enable patient to perform ADL's. OT Retirement Goals Retirement Goals Time Frame: May 22, 2016 Eating (FIM): 6 Eating (QC): 6 Groomin Oral Hygiene (QC): 6 Bathing(FIM): 5 Shower/Bathe Self (QC): 5 Upper Body Dressing(FIM): 6 Upper Body Dressing (QC): 6 Lower Body Dressing(FIM): 6 Lower Body Dressing (QC): 6 On/Off Footwear (QC): 6 Toileting(FIM): 6 Toileting Hygiene (QC): 6 Transfers (B,C,W/C) (FIM): 5 Toilet/Commode Transfer(FIM): 6 Toilet/Commode Transfer (QC): 6 Shower Transfer(FIM): 5 Additional Goals: 1-Demonstrate ADL Tasks, 2-Verbalize Understanding, 3- ImproveStrength/Devin 1=Demonstrate adherence to instructed precautions during ADL tasks. 2=Patient will verbalize/demonstrate understanding of assistive devices/ modifications for ADL. 3=Patient will improve strength/tolerance for activity to enable patient to perform ADL's. OT Education/Plan Problem List/Assessment Assessment: Decreased Activ Tolerance, Decreased UE Strength, Dependent Transfers, Impaired Bed Mobility, Impaired Coordination, Impaired Funct Balance , Impaired I ADL's, Impaired Self-Care Skills, Restricted Funct UE ROM Discharge Recommendations Plan/Recommendations: Continue POC Therapy D/C Recommendations: Home w/ Family Support, Occupational Therapy Home Care, Scheduled Assistance Equpiment Recommendations-D/C: Extended Bath Bench Barriers to Progress Pt. having spasms all over. Treatment Plan/Plan of Care Treatment,Training & Education: Yes Patient would benefit from OT for education, treatment and training to promote independence in ADL's, mobility, safety and/or upper extremity function for ADL' s. Plan of Care: ADL Retraining, Caregiver Training, Functional Mobility, Group Exercise/Act as Ind, UE Funct Exercise/Act Treatment Duration: May 22, 2016 Visits Per Week: 10-12 Minutes/Day (M-F): 60-90 Minutes/Day (Sat/Chan): PRN Agreement: Yes Rehab Potential: Good Time/GCodes Start Time: 09:30 Stop Time: 10:30 Total Time Billed (hr/min): 60 Billed Treatment Time 1, ADL x 45minutes, FA x 15minutes KAVITA ORTEGA OT May 05, 2016 12:06
--- NOTE | 2016-05-05 13:39 | Occupational Ther Daily Note ---
OT Current Status-Daily Note Subjective Pt. states that he is not having any pain. Appearance Pt. up in chair. Agrees to occupational therapy. Mental Status/Objective Patient Orientation: Person, Place, Time, Situation Functional [place] Measure 0=Not Assessed/NA 4=Minimal Assistance 1=Total Assistance 5=Supervision or Setup 2=Maximal Assistance 6=Modified [place] 3=Moderate Assistance 7=Complete [place] ADL-Treatment Functional [place] Measure 0=Not Assessed/NA 4=Minimal Assistance 1=Total Assistance 5=Supervision or Setup 2=Maximal Assistance 6=Modified [place] 3=Moderate Assistance 7=Complete IndependenceIRFPAI Quality Coding Scale 6 Independent with activity with or without an assistive device 5 Patient requires set up or clean up by helper. Patient completes activity by themselves 4 Supervision or touching assist (CGA). [place] provide cues , steadying assist 3 The helper provides less than half the effort to complete the activity 2 The helper provides more than half the effort to complete the activity 1 Dependent. The helper does all the effort to complete an activity 7 Patient refused to complete or attempt activity 9 The patient did not perform the activity before the current illness or injury 88 Not attempted due to Medical conditions or safety concerns Other Treatment Pt. agrees to work on right UE movement. Note that pt. is able to range right shoulder to approximately 90 degrees, until he fatigues from movement, and then only 75 degrees. Pt. is able to complete bicep flexion, but does have difficulty at times. Pt. is able to extend right wrist, but is unable to actively flex. Only limited trace movement noted in right thumb/index finger. OT engages pt. in several stabilization activities. Pt. is issued piece of paper, and is able to grasp slightly between right thumb/index. Is able to hold scissors in left and cut across. Pt. then transfers scissors and requires hand over hand assist to cut and open scissors. OT hands pt. deck of cards. Pt. stabilizes them with right hand, and is able to hold cards with left to flip them over. OT initiates finger flexion, but pt. is unable to fully complete. OT completed PROM to right UE, as well as facilitating AAROM to right shoulder, bicep, and wrist. All needs met up in chair. Education OT Patient Education: Exercise program, Modified ADL techniques, Progress toward Goal/Update tx plan, Purpose of tx/functional activities, Reviewed precautions, Rehab process, Transfer techniques Teaching Recipient: Patient Teaching Methods: Demonstration, Discussion Response to Teaching: Verbalize Understanding, Return Demonstration OT Short Term Goals Short Term Goals Time Frame: May 08, 2016 Eating(FIM): 6 Grooming(FIM): 5 Bathing(FIM): 5 Transfers (B,C,W/C) (FIM): 4 Toilet/Commode Transfer(FIM): 4 Shower Transfer(FIM): 4 Additional Short Term Goals: 1-Demonstrate ADL Tasks, 2-Verbalize Understanding , 3-ImproveStrength/Devin 1=Demonstrate adherence to instructed precautions during ADL tasks. 2=Patient will verbalize/demonstrate understanding of assistive devices/ modifications for ADL. 3=Patient will improve strength/tolerance for activity to enable patient to perform ADL's. OT Senior Living Goals Tire Building Supervisor Goals Time Frame: May 22, 2016 Eating (FIM): 6 Eating (QC): 6 Groomin Oral Hygiene (QC): 6 Bathing(FIM): 5 Shower/Bathe Self (QC): 5 Upper Body Dressing(FIM): 6 Upper Body Dressing (QC): 6 Lower Body Dressing(FIM): 6 Lower Body Dressing (QC): 6 On/Off Footwear (QC): 6 Toileting(FIM): 6 Toileting Hygiene (QC): 6 Transfers (B,C,W/C) (FIM): 5 Toilet/Commode Transfer(FIM): 6 Toilet/Commode Transfer (QC): 6 Shower Transfer(FIM): 5 Additional Goals: 1-Demonstrate ADL Tasks, 2-Verbalize Understanding, 3- ImproveStrength/Devin 1=Demonstrate adherence to instructed precautions during ADL tasks. 2=Patient will verbalize/demonstrate understanding of assistive devices/ modifications for ADL. 3=Patient will improve strength/tolerance for activity to enable patient to perform ADL's. OT Education/Plan Problem List/Assessment Assessment: Decreased Activ Tolerance, Decreased UE Strength, Impaired Bed Mobility, Impaired Coordination, Impaired Funct Balance, Impaired I ADL's, Impaired Self-Care Skills Discharge Recommendations Plan/Recommendations: Continue POC Therapy D/C Recommendations: Home w/ Family Support, Occupational Therapy Home Care, Scheduled Assistance Equpiment Recommendations-D/C: Extended Bath Bench, Hip Kit Treatment Plan/Plan of Care Treatment,Training & Education: Yes Patient would benefit from OT for education, treatment and training to promote independence in ADL's, mobility, safety and/or upper extremity function for ADL' s. Plan of Care: ADL Retraining, Caregiver Training, Functional Mobility, Group Exercise/Act as Ind, UE Funct Exercise/Act Treatment Duration: May 22, 2016 Visits Per Week: 10-12 Minutes/Day (M-F): 60-90 Minutes/Day (Sat/Chan): PRN Agreement: Yes Rehab Potential: Good Time/GCodes Start Time: 13:00 Stop Time: 13:30 Total Time Billed (hr/min): 30 Billed Treatment Time 1, EX x 2 KAVITA ORTEGA OT May 05, 2016 13:39
[2016-05-05] MEDS: CYCLOBENZAPRINE 10 MG (FLEXERIL) TAB PO SCH ×2 (13:46→21:02)
--- NOTE | 2016-05-05 14:01 | Physical Therapy Daily Note ---
PT Daily Note-Current Subjective Patient in recliner pre tx, agrees to PT, has 8/10 pain in right leg and low back, states he has stiff muscles. Appearance Patient in recliner post tx with nurse call, phone, tray, all needs met. Mental Status Patient Orientation: Person, Place, Situation cervical collar Transfers Functional [place] Measure 0=Not Assessed/NA 4=Minimal Assistance 1=Total Assistance 5=Supervision or Setup 2=Maximal Assistance 6=Modified [place] 3=Moderate Assistance 7=Complete IndependenceIRFPAI Quality Coding Scale 6 Independent with activity with or without an assistive device 5 Patient requires set up or clean up by helper. Patient completes activity by themselves 4 Supervision or touching assist (CGA). [place] provide cues , steadying assist 3 The helper provides less than half the effort to complete the activity 2 The helper provides more than half the effort to complete the activity 1 Dependent. The helper does all the effort to complete an activity 7 Patient refused to complete or attempt activity 9 The patient did not perform the activity before the current illness or injury 88 Not attempted due to Medical conditions or safety concerns Transfers (B, C, W/C) (FIM): 5 Sit to/from Stand: 5 Gait Training Gait (FIM): 5 Distance: 200' Gait Level of Assist: 5 Gait Persons Needed: 1 Gait Assistive Device: Walker Platform Patient also ambulated 200' with a quad cane with CGA, and AFO on right side, cues for safety and foot placement, right knee hyperextension. Very slow ambulation with quad cane. Treatments transfers, ambulation, patient was toileted once Assessment Current Status: Fair Progress improving ambulation PT Short Term Goals Short Term Goals Time Frame: May 08, 2016 Transfers (B,C,W/C) (FIM): 4 Gait (FIM): 4 PT Livestock Dealer Goals Livestock Dealer Goals PT Livestock Dealer Goals Time Frame: May 22, 2016 Transfers (B,C,W/C) (FIM): 6 Sit to Lying (QC): 6 Lying-Sitting on Side/Bed(QC): 6 Sit to Stand (QC): 6 Rollin Roll Left to Right (QC): 6 Chair/Vyg-ti-Afhlw Xfer(QC): 6 Car Transfer (QC): 6 Does the Patient Walk: Yes Gait (FIM): 6 Gait distance (FIM): 3=150 ft Walk 10 feet (QC): 6 Walk 10ft-Uneven Surface(QC): 6 Walk 50ft with 2 Turns (QC): 6 Walk 150 ft (QC): 6 Gait Level of Assist: 6 Gait Assistive Device: Walker Platform (or cand) Does the Pt use WC or Scooter?: No Stairs (FIM): 6 # of Steps: 12 1 Step (curb) (QC): 6 4 Steps (QC): 6 12 Steps (QC): 6 Picking up an Object (QC): 5 PT Plan Problem List Problem List: Activity Tolerance, Functional Strength, Safety, Balance, Gait, Transfer Treatment/Plan Treatment Plan: Continue Plan of Care Treatment Plan: Bed Mobility, Education, Functional Activity Devin, Functional Strength, Group Therapy, Gait, Safety, Therapeutic Exercise, Transfers Treatment Duration: May 22, 2016 Visits Per Week: 10-15 Minutes/Day (M-F): 60-90 Minutes/Day (Sat/Chan): prn Safety Risks/Education Patient Education: Gait Training, Transfer Techniques, Safety Issues Teaching Recipient: Patient Teaching Methods: Demonstration, Discussion Response to Teaching: Reinforcement Needed Time/GCodes Time In: 1330 Time Out: 1400 Total Billed Treatment Time: 30 Total Billed Treatment 1 visit GT 30 min SANGEETHA RIVAS PT May 05, 2016 14:01
[2016-05-05 18:48] VITALS: BP 102/61
[2016-05-05] MEDS: MILK OF MAGNESIA 400 MG/5 ML 30 ML UDC PO SCH (21:00)
[2016-05-06 06:00] VITALS: BP 104/62
[2016-05-06] MEDS: oxyCODONE/APAP 7.5-325 MG (PERCOCET 7.5) TABLET PO PRN ×3 (06:34→21:10)
--- NOTE | 2016-05-06 08:32 | Progress Note (SOAP) ---
Subjective Subjective/Events-last exam cervical spine fractures. Constipation. Muscle spasm. Dulcolax suppository.added. DC Flexeril. Go back on baclofen Objective Exam Vital Signs Date Time Temp Pulse Resp B/P (MAP) Pulse Ox O2 Delivery O2 Flow Rate FiO2 05/06/16 06:00 98.6 61 18 104/62 93 Room Air 05/05/16 21:00 Room Air 05/05/16 18:48 97.9 68 18 102/61 99 Room Air 05/05/16 09:00 Room Air I & O 05/06/16 07:00 Intake Total 940 ml Output Total 350 ml Balance 590 ml Capillary Refill : General Appearance: Thin Assessment/Plan Assessment/Plan Assess & Plan/Chief Complaint cervical fracture. Ambulatory dysfunction. t history of alcoholism. History of tobaccoism. . 05/02/16. Cervical fracture. Ambulatory dysfunction. History of alcoholism. History of tobaccoism. Patient still constipated. . 05/05/16. Cervical fracture. Ambulatory dysfunction. History of alcoholism. History of tobaccoism. Patient getting around is 1 assist with walker. Patient not stable in his feet yet. . 05/06/16. Cervical fracture. Ambulatory dysfunction. Muscle spasms. Patient doing better and improving. Patient using a quad cane Clinical Quality Measures DVT/VTE Risk/Contraindication: Risk Factor Score Per Nursin RFS Level Per Nursing on Admit: 4+=Very High BURT GARZA DO May 06, 2016 08:32
--- NOTE | 2016-05-06 08:59 | Physical Therapy Daily Note ---
PT Daily Note-Current Subjective Patient in bed pre tx, agrees to PT, states he has pain of 8/10 in his right leg and has already had his morning meds. Patient also states that he has spilled his urinal in his bed and will need to be cleaned up and clothes changed. Appearance Patient in recliner post tx with nurse call, phone, tray, all needs met. Mental Status Patient Orientation: Person, Place, Situation cervical collar Transfers Functional [place] Measure 0=Not Assessed/NA 4=Minimal Assistance 1=Total Assistance 5=Supervision or Setup 2=Maximal Assistance 6=Modified [place] 3=Moderate Assistance 7=Complete IndependenceIRFPAI Quality Coding Scale 6 Independent with activity with or without an assistive device 5 Patient requires set up or clean up by helper. Patient completes activity by themselves 4 Supervision or touching assist (CGA). [place] provide cues , steadying assist 3 The helper provides less than half the effort to complete the activity 2 The helper provides more than half the effort to complete the activity 1 Dependent. The helper does all the effort to complete an activity 7 Patient refused to complete or attempt activity 9 The patient did not perform the activity before the current illness or injury 88 Not attempted due to Medical conditions or safety concerns Transfers (B, C, W/C) (FIM): 5 Scootin Rollin Supine to/from Sit: 6 Sit to/from Stand: 5 Bed to/from Chair: 5 Gait Training Gait (FIM): 4 Distance: 150'x2 Gait Level of Assist: 4 Gait Persons Needed: 1 Gait Assistive Device: Cane Large Base Quad Patient barely min assist for very occasional loss of balance Exercises manual stretching of right leg in all planes, SAQ right side with 2# ankle weight for 5 min NuStep Minutes: 15 NuStep Workload: 5 Treatments cleaning up and dressing, bed mobility and transfers, ambulation, stretching, functional strengthening Assessment Current Status: Fair Progress improving ambulation, still right knee hyperextension during ambulation but seems to be a little less today PT Short Term Goals Short Term Goals Time Frame: May 08, 2016 Transfers (B,C,W/C) (FIM): 4 Gait (FIM): 4 PT Clean Rice Grader And Reel Tender Goals Longterm Goals PT Clean Rice Grader And Reel Tender Goals Time Frame: May 22, 2016 Transfers (B,C,W/C) (FIM): 6 Sit to Lying (QC): 6 Lying-Sitting on Side/Bed(QC): 6 Sit to Stand (QC): 6 Rollin Roll Left to Right (QC): 6 Chair/Wai-ws-[place] Xfer(QC): 6 Car Transfer (QC): 6 Does the Patient Walk: Yes Gait (FIM): 6 Gait distance (FIM): 3=150 ft Walk 10 feet (QC): 6 Walk 10ft-Uneven Surface(QC): 6 Walk 50ft with 2 Turns (QC): 6 Walk 150 ft (QC): 6 Gait Level of Assist: 6 Gait Assistive Device: Walker Platform (or cand) Does the Pt use WC or Scooter?: No Stairs (FIM): 6 # of Steps: 12 1 Step (curb) (QC): 6 4 Steps (QC): 6 12 Steps (QC): 6 Picking up an Object (QC): 5 PT Plan Problem List Problem List: Activity Tolerance, Functional Strength, Safety, Balance, Gait, Transfer, ROM Treatment/Plan Treatment Plan: Continue Plan of Care Treatment Plan: Bed Mobility, Education, Functional Activity Devin, Functional Strength, Group Therapy, Gait, Safety, Therapeutic Exercise, Transfers Treatment Duration: May 22, 2016 Visits Per Week: 10-15 Minutes/Day (M-F): 60-90 Minutes/Day (Sat/Chan): prn Safety Risks/Education Patient Education: Gait Training, Transfer Techniques, Correct Positioning, Safety Issues Teaching Recipient: Patient Teaching Methods: Demonstration, Discussion Response to Teaching: Reinforcement Needed Time/GCodes Time In: 800 Time Out: 900 Total Billed Treatment Time: 60 Total Billed Treatment 1 visit GT 15 min EX 30 min FA 15 min SANGEETHA RIVAS PT May 06, 2016 08:59
[2016-05-06] MEDS: GABAPENTIN 100 MG (NEURONTIN) CAP PO SCH ×3 (09:00→21:10)
[2016-05-06] MEDS: MILK OF MAGNESIA 400 MG/5 ML 30 ML UDC PO SCH ×2 (09:00→21:00)
[2016-05-06] MEDS: DOCUSATE SODIUM 100 MG (COLACE) CAP PO SCH ×2 (09:00→21:10)
[2016-05-06] MEDS: SENNA W/DOCUSATE (SENOKOT S) TABLET PO SCH ×2 (09:00→21:10)
[2016-05-06] MEDS: LACTULOSE SYRUP 10GM/15ML (ENULOSE) 30ML UDC PO PRN (09:05)
[2016-05-06] MEDS: BACLOFEN 10 MG (LIORESAL) TAB PO PRN ×2 (11:03→21:10)
--- NOTE | 2016-05-06 11:12 | Occupational Ther Daily Note ---
OT Current Status-Daily Note Subjective Pt alert, sitting in recliner. Pt agreed to therapy. Pt c/o that his lower back was stiff. Pt stated that he had already cleaned up and didn't want to take a shower/bathe. Mental Status/Objective Patient Orientation: Person, Place, Time, Situation Functional [place] Measure 0=Not Assessed/NA 4=Minimal Assistance 1=Total Assistance 5=Supervision or Setup 2=Maximal Assistance 6=Modified [place] 3=Moderate Assistance 7=Complete [place] ADL-Treatment Functional [place] Measure 0=Not Assessed/NA 4=Minimal Assistance 1=Total Assistance 5=Supervision or Setup 2=Maximal Assistance 6=Modified [place] 3=Moderate Assistance 7=Complete IndependenceIRFPAI Quality Coding Scale 6 Independent with activity with or without an assistive device 5 Patient requires set up or clean up by helper. Patient completes activity by themselves 4 Supervision or touching assist (CGA). [place] provide cues , steadying assist 3 The helper provides less than half the effort to complete the activity 2 The helper provides more than half the effort to complete the activity 1 Dependent. The helper does all the effort to complete an activity 7 Patient refused to complete or attempt activity 9 The patient did not perform the activity before the current illness or injury 88 Not attempted due to Medical conditions or safety concerns Other Treatment Pt able to go sit to stand with SBA. Using Proxima Cancioncane, pt ambulated to therapy gym with min A due to slight LOB while ambulating. Pt then was able to lay down on therapy mat by self. PROM and stretching of R UE completed to increase AROM and decrease tightness and pain in R UE. Then completed AAROM with full R shldr ROM. Pt described tightness/pain at R elbow around lateral epicondyle when completing shldr abduction/adduction then with shldr flex/ext tightness/ pain in bicep. Pt did not c/o pain/tightness in shldr with stretch and ROM. Massage and stretch to areas decreased tightness and pain then increase AROM. Pt uses wrist flexion/extension to open/close R hand, no muscle movement for finger flex/ext noticeable. In supine with light wt dowel jennifer, pt was able to complete bilateral dowel jennifer exercises for shldr and R had was able to sustain continuous grasp on dowel. In sitting, pt worked on wt bearing into hand and straightening R elbow with tricep, required assist to isolate tricep movement. Pt then was able to complete bicep and tricep dowel jennifer exercises sitting EOB with 1# wt attached to R wrist without difficulty. Then arm bike duration 10 min at 5 pelletier resistance with 4 recovery breaks to increase AROM and activity tolerance for daily functional tasks. After therapy, pt ambulated to room with min A using quadcane. Pt lying in bed with call light/phone in reach, all needs met in room. OT Short Term Goals Short Term Goals Time Frame: May 08, 2016 Eating(FIM): 6 Grooming(FIM): 5 Bathing(FIM): 5 Transfers (B,C,W/C) (FIM): 4 Toilet/Commode Transfer(FIM): 4 Shower Transfer(FIM): 4 Additional Short Term Goals: 1-Demonstrate ADL Tasks, 2-Verbalize Understanding , 3-ImproveStrength/Devin 1=Demonstrate adherence to instructed precautions during ADL tasks. 2=Patient will verbalize/demonstrate understanding of assistive devices/ modifications for ADL. 3=Patient will improve strength/tolerance for activity to enable patient to perform ADL's. OT Detention Goals Detention Goals Time Frame: May 22, 2016 Eating (FIM): 6 Eating (QC): 6 Groomin Oral Hygiene (QC): 6 Bathing(FIM): 5 Shower/Bathe Self (QC): 5 Upper Body Dressing(FIM): 6 Upper Body Dressing (QC): 6 Lower Body Dressing(FIM): 6 Lower Body Dressing (QC): 6 On/Off Footwear (QC): 6 Toileting(FIM): 6 Toileting Hygiene (QC): 6 Transfers (B,C,W/C) (FIM): 5 Toilet/Commode Transfer(FIM): 6 Toilet/Commode Transfer (QC): 6 Shower Transfer(FIM): 5 Additional Goals: 1-Demonstrate ADL Tasks, 2-Verbalize Understanding, 3- ImproveStrength/Devin 1=Demonstrate adherence to instructed precautions during ADL tasks. 2=Patient will verbalize/demonstrate understanding of assistive devices/ modifications for ADL. 3=Patient will improve strength/tolerance for activity to enable patient to perform ADL's. OT Education/Plan Discharge Recommendations Plan/Recommendations: Continue POC Treatment Plan/Plan of Care Patient would benefit from OT for education, treatment and training to promote independence in ADL's, mobility, safety and/or upper extremity function for ADL' s. Plan of Care: ADL Retraining, Caregiver Training, Functional Mobility, Group Exercise/Act as Ind, UE Funct Exercise/Act Treatment Duration: May 22, 2016 Visits Per Week: 10-12 Minutes/Day (M-F): 60-90 Minutes/Day (Sat/Chan): PRN Agreement: Yes Rehab Potential: Good Time/GCodes Start Time: 09:30 Stop Time: 11:00 Total Time Billed (hr/min): 90 Billed Treatment Time 1 visit-EX 6 (90 min) DEACON CARPENTER May 06, 2016 11:12
--- NOTE | 2016-05-06 13:32 | Physical Therapy Daily Note ---
PT Daily Note-Current Subjective Patient sitting EOB pre tx, agrees to PT, states he has 9/10 pain in his low back and right leg except he describes it as muscle stiffness instead of pain after a while. Appearance Patient sitting EOB post tx to finish his lunch, has nurse call, phone, tray, all needs met. Mental Status Patient Orientation: Normal For Age cervical collar Transfers Functional [place] Measure 0=Not Assessed/NA 4=Minimal Assistance 1=Total Assistance 5=Supervision or Setup 2=Maximal Assistance 6=Modified [place] 3=Moderate Assistance 7=Complete IndependenceIRFPAI Quality Coding Scale 6 Independent with activity with or without an assistive device 5 Patient requires set up or clean up by helper. Patient completes activity by themselves 4 Supervision or touching assist (CGA). [place] provide cues , steadying assist 3 The helper provides less than half the effort to complete the activity 2 The helper provides more than half the effort to complete the activity 1 Dependent. The helper does all the effort to complete an activity 7 Patient refused to complete or attempt activity 9 The patient did not perform the activity before the current illness or injury 88 Not attempted due to Medical conditions or safety concerns Transfers (B, C, W/C) (FIM): 5 Sit to/from Stand: 5 Gait Training Gait (FIM): 4 Distance: 300', 150' Gait Level of Assist: 4 Gait Persons Needed: 1 Gait Assistive Device: Cane Large Base Quad CGA, no LOB, patient is almost SBA now, uses right AFO, still some right knee hyperextension Exercises LAQ right side for 5 min Treatments transfers, ambulation, functional strengthening Assessment Current Status: Fair Progress improving balance and endurance with ambulation, still slow PT Short Term Goals Short Term Goals Time Frame: May 08, 2016 Transfers (B,C,W/C) (FIM): 4 Gait (FIM): 4 PT Residential Goals Residential Goals PT Residential Goals Time Frame: May 22, 2016 Transfers (B,C,W/C) (FIM): 6 Sit to Lying (QC): 6 Lying-Sitting on Side/Bed(QC): 6 Sit to Stand (QC): 6 Rollin Roll Left to Right (QC): 6 Chair/Mek-ll-Qnuxv Xfer(QC): 6 Car Transfer (QC): 6 Does the Patient Walk: Yes Gait (FIM): 6 Gait distance (FIM): 3=150 ft Walk 10 feet (QC): 6 Walk 10ft-Uneven Surface(QC): 6 Walk 50ft with 2 Turns (QC): 6 Walk 150 ft (QC): 6 Gait Level of Assist: 6 Gait Assistive Device: Walker Platform (or cand) Does the Pt use WC or Scooter?: No Stairs (FIM): 6 # of Steps: 12 1 Step (curb) (QC): 6 4 Steps (QC): 6 12 Steps (QC): 6 Picking up an Object (QC): 5 PT Plan Problem List Problem List: Activity Tolerance, Functional Strength, Safety, Balance, Gait, Transfer, ROM Treatment/Plan Treatment Plan: Continue Plan of Care Treatment Plan: Bed Mobility, Education, Functional Activity Devin, Functional Strength, Group Therapy, Gait, Safety, Therapeutic Exercise, Transfers Treatment Duration: May 22, 2016 Visits Per Week: 10-15 Minutes/Day (M-F): 60-90 Minutes/Day (Sat/Chan): prn Safety Risks/Education Patient Education: Gait Training, Transfer Techniques, Safety Issues Teaching Recipient: Patient Teaching Methods: Demonstration, Discussion Response to Teaching: Reinforcement Needed Time/GCodes Time In: 1300 Time Out: 1330 Total Billed Treatment Time: 30 Total Billed Treatment 1 visit GT 30 min SANGEETHA RIVAS PT May 06, 2016 13:32
[2016-05-06] MEDS: BACITRACIN OINTMENT 28 GM TUBE TOP SCH (17:58)
[2016-05-06 18:13] VITALS: BP 114/70
--- NOTE | 2016-05-06 19:29 | PM & R (SOAP) Progress Note ---
Subjective Subjective/Events-last exam Patient was seen in his room earlier today Appreciate therapy noes Patient without recent BM RN to discuss Suppository with patient Patient min assist for gait with quad cane Objective Exam Last Set of Vital Signs Vital Signs Date Time Temp Pulse Resp B/P (MAP) Pulse Ox O2 Delivery O2 Flow Rate FiO2 05/06/16 18:13 97.1 68 16 114/70 98 05/06/16 15:30 Room Air Capillary Refill : I&O Intake and Output 05/06/16 00:00 Intake Total 1350 ml Balance 1350 ml Intake Oral 1350 ml # Voids 7 General: Alert, Oriented X3, Cooperative, No Acute Distress HEENT: Atraumatic, PERRLA, EOMI, Mucous Memb Moist/[place] Neck: Other (Soft C collar in place) Lungs: Clear to Auscultation Heart: Regular Rate Abdomen: Normal Bowel Sounds, Soft, No Tenderness Extremities: No Edema Neuro: Other (RT sided weakness) Psych/Mental Status: Mental Status NL Assessment/Plan Assessment Traumatic C6 quadriplegia s/p decompressive surgery DR Bennett [facility] [place] having return HX of substance abuse Constipation meds to be adjusted Plan Continue PT/OT Appreciate DR Napoles note and orders Team Conference tomorrow 05/07/16. PRINCESS TURNER MD May 06, 2016 19:29
[2016-05-07] MEDS: BACLOFEN 10 MG (LIORESAL) TAB PO PRN ×2 (04:22→23:22)
[2016-05-07] MEDS: oxyCODONE/APAP 7.5-325 MG (PERCOCET 7.5) TABLET PO PRN ×5 (04:22→23:23)
[2016-05-07 06:00] VITALS: BP 110/71
[2016-05-07] MEDS: SENNA W/DOCUSATE (SENOKOT S) TABLET PO SCH ×2 (08:12→20:11)
[2016-05-07] MEDS: MILK OF MAGNESIA 400 MG/5 ML 30 ML UDC PO SCH ×2 (08:12→20:21)
[2016-05-07] MEDS: DOCUSATE SODIUM 100 MG (COLACE) CAP PO SCH ×2 (08:12→20:11)
[2016-05-07] MEDS: GABAPENTIN 100 MG (NEURONTIN) CAP PO SCH ×3 (08:12→20:11)
--- NOTE | 2016-05-07 08:32 | Progress Note (SOAP) ---
Subjective Subjective/Events-last exam patient doing better and improving. Patient not using a regular cane from [facility]. Cervical spine fracture. Patient had bowel movements yesterday with lactulose. Patient likes baclofen better then Flexeril Objective Exam Vital Signs Date Time Temp Pulse Resp B/P (MAP) Pulse Ox O2 Delivery O2 Flow Rate FiO2 05/07/16 06:00 97.8 69 18 110/71 97 Room Air 05/06/16 20:50 Room Air 05/06/16 18:13 97.1 68 16 114/70 98 05/06/16 15:30 Room Air 05/06/16 09:28 Room Air I & O 05/07/16 07:00 Intake Total 800 ml Output Total 300 ml Balance 500 ml Capillary Refill : General Appearance: No Apparent Distress, Thin HEENT: Normal ENT Inspection Neck: Other (wearing a collar) Respiratory: Chest Non Tender, Lungs Clear, Normal Breath Sounds, No Accessory Muscle Use Cardiovascular: Regular Rate, Rhythm, No Murmur Assessment/Plan Assessment/Plan Assess & Plan/Chief Complaint cervical fracture. Ambulatory dysfunction. t history of alcoholism. History of tobaccoism. . 05/02/16. Cervical fracture. Ambulatory dysfunction. History of alcoholism. History of tobaccoism. Patient still constipated. . 05/05/16. Cervical fracture. Ambulatory dysfunction. History of alcoholism. History of tobaccoism. Patient getting around is 1 assist with walker. Patient not stable in his feet yet. . 05/06/16. Cervical fracture. Ambulatory dysfunction. Muscle spasms. Patient doing better and improving. Patient using a quad cane. . 05/07/16. Cervical fracture . Ambulatory dysfunction. Patient doing better and improving. Patient using a regular cane. Patient a work in progress Clinical Quality Measures DVT/VTE Risk/Contraindication: Risk Factor Score Per Nursin RFS Level Per Nursing on Admit: 4+=Very High BURT GARZA DO May 07, 2016 08:32
--- NOTE | 2016-05-07 08:58 | Physical Therapy Daily Note ---
PT Daily Note-Current Subjective Patient in bed pre tx, agrees to PT, has 9/10 pain in right leg and low back, nursing in the room to administer his morning meds. Appearance Patient in bed post tx with nurse call, phone, tray, all needs met. Mental Status Patient Orientation: Normal For Age cervical collar Transfers Functional [place] Measure 0=Not Assessed/NA 4=Minimal Assistance 1=Total Assistance 5=Supervision or Setup 2=Maximal Assistance 6=Modified [place] 3=Moderate Assistance 7=Complete IndependenceIRFPAI Quality Coding Scale 6 Independent with activity with or without an assistive device 5 Patient requires set up or clean up by helper. Patient completes activity by themselves 4 Supervision or touching assist (CGA). [place] provide cues , steadying assist 3 The helper provides less than half the effort to complete the activity 2 The helper provides more than half the effort to complete the activity 1 Dependent. The helper does all the effort to complete an activity 7 Patient refused to complete or attempt activity 9 The patient did not perform the activity before the current illness or injury 88 Not attempted due to Medical conditions or safety concerns Transfers (B, C, W/C) (FIM): 4 Scootin Rollin Supine to/from Sit: 6 Sit to/from Stand: 4 (CGA) Gait Training Gait (FIM): 4 Distance: 400', 150' Gait Level of Assist: 4 Gait Persons Needed: 1 Gait Assistive Device: Cane Single Point Patient can ambulate 400' with CGA using a single point cane. He still drags his toes on the right side even with the use of an AFO, he also has some right knee hyperextension. Stair Training Stair Training: Handrails/: 1 handrail Stairs (FIM): 4 #of Steps: 12 Stairs: Pattern: Step to Level of Assist: 4 CGA, cues for foot placement Exercises Standing: Hip Abduction, Step-ups Standing Reps: 20 NuStep Minutes: 15 NuStep Workload: 5 Treatments bed mobility and transfers, ambulation, functional strengthening, stair training Assessment Current Status: Fair Progress strength and endurance improving, advanced patient to use a single point cane during ambulation PT Short Term Goals Short Term Goals Time Frame: May 08, 2016 Transfers (B,C,W/C) (FIM): 4 Gait (FIM): 4 PT Youth Accommodation Support Worker Goals Youth Accommodation Support Worker Goals PT Youth Accommodation Support Worker Goals Time Frame: May 22, 2016 Transfers (B,C,W/C) (FIM): 6 Sit to Lying (QC): 6 Lying-Sitting on Side/Bed(QC): 6 Sit to Stand (QC): 6 Rollin Roll Left to Right (QC): 6 Chair/Xrp-jd-Gglmt Xfer(QC): 6 Car Transfer (QC): 6 Does the Patient Walk: Yes Gait (FIM): 6 Gait distance (FIM): 3=150 ft Walk 10 feet (QC): 6 Walk 10ft-Uneven Surface(QC): 6 Walk 50ft with 2 Turns (QC): 6 Walk 150 ft (QC): 6 Gait Level of Assist: 6 Gait Assistive Device: Walker Platform (or cand) Does the Pt use WC or Scooter?: No Stairs (FIM): 6 # of Steps: 12 1 Step (curb) (QC): 6 4 Steps (QC): 6 12 Steps (QC): 6 Picking up an Object (QC): 5 PT Plan Problem List Problem List: Activity Tolerance, Functional Strength, Safety, Balance, Gait, Transfer Treatment/Plan Treatment Plan: Continue Plan of Care Treatment Plan: Bed Mobility, Education, Functional Activity Devin, Functional Strength, Group Therapy, Gait, Safety, Therapeutic Exercise, Transfers Treatment Duration: May 22, 2016 Visits Per Week: 10-15 Minutes/Day (M-F): 60-90 Minutes/Day (Sat/Chan): prn Safety Risks/Education Patient Education: Gait Training, Transfer Techniques, Steps, Safety Issues Teaching Recipient: Patient Teaching Methods: Demonstration, Discussion Response to Teaching: Reinforcement Needed Time/GCodes Time In: 800 Time Out: 900 Total Billed Treatment Time: 60 Total Billed Treatment 1 visit GT 30 min EX 30 min SANGEETHA RIVAS PT May 07, 2016 08:58
--- NOTE | 2016-05-07 10:50 | Occupational Ther Daily Note ---
OT Current Status-Daily Note Subjective Pt. reports that the shower feels good. No pain reported this morning. Appearance Pt. in bed. Agrees to OT treatment. Mental Status/Objective Patient Orientation: Person, Place Functional [place] Measure 0=Not Assessed/NA 4=Minimal Assistance 1=Total Assistance 5=Supervision or Setup 2=Maximal Assistance 6=Modified [place] 3=Moderate Assistance 7=Complete [place] ADL-Treatment Functional [place] Measure 0=Not Assessed/NA 4=Minimal Assistance 1=Total Assistance 5=Supervision or Setup 2=Maximal Assistance 6=Modified [place] 3=Moderate Assistance 7=Complete IndependenceIRFPAI Quality Coding Scale 6 Independent with activity with or without an assistive device 5 Patient requires set up or clean up by helper. Patient completes activity by themselves 4 Supervision or touching assist (CGA). [place] provide cues , steadying assist 3 The helper provides less than half the effort to complete the activity 2 The helper provides more than half the effort to complete the activity 1 Dependent. The helper does all the effort to complete an activity 7 Patient refused to complete or attempt activity 9 The patient did not perform the activity before the current illness or injury 88 Not attempted due to Medical conditions or safety concerns Bathing (FIM): 5 (Pt. is able to shower using LH sponge for LE with set up.) Shower/Bathe Self (QC): 5 Upper Body (FIM): 5 (Pt. is able to doff/don shirt and neck brace with SBA.) Lower Body Dressing (FIM): 3 (Pt. is able to don/doff pants with SBA. He is able to doff shoes and socks with SBA. Requires max assist to don shoes, AFO, and socks. Attempts to utilize sock aide, but requires assistance due to little movement in right hand.) Transfers (B, C, W/C) (FIM): 4 (Pt. is able to transfer supine to sit with Mod I using rail. Requires CGA for all other transfers. Is using a single point cane now.) Shower Transfer(FIM): 4 Other Treatment After shower, pt. able to ambulate to dining area with CGA. Tolerated e-stim to right hand for MP joint flexion. Tolerated 4 sameera-amps at first, and then 8. Noted considerable flexion in MP's with treatment. Ambulated back to room and all needs met. Education OT Patient Education: Exercise program, Modified ADL techniques, Progress toward Goal/Update tx plan, Purpose of tx/functional activities, Reviewed precautions, Rehab process, Transfer techniques Teaching Recipient: Patient Teaching Methods: Demonstration, Discussion Response to Teaching: Verbalize Understanding, Return Demonstration OT Short Term Goals Short Term Goals Time Frame: May 08, 2016 Eating(FIM): 6 Grooming(FIM): 5 Bathing(FIM): 5 Transfers (B,C,W/C) (FIM): 4 Toilet/Commode Transfer(FIM): 4 Shower Transfer(FIM): 4 Additional Short Term Goals: 1-Demonstrate ADL Tasks, 2-Verbalize Understanding , 3-ImproveStrength/Devin 1=Demonstrate adherence to instructed precautions during ADL tasks. 2=Patient will verbalize/demonstrate understanding of assistive devices/ modifications for ADL. 3=Patient will improve strength/tolerance for activity to enable patient to perform ADL's. OT Diploma Maker Goals Assisted Goals Time Frame: May 22, 2016 Eating (FIM): 6 Eating (QC): 6 Groomin Oral Hygiene (QC): 6 Bathing(FIM): 5 Shower/Bathe Self (QC): 5 Upper Body Dressing(FIM): 6 Upper Body Dressing (QC): 6 Lower Body Dressing(FIM): 6 Lower Body Dressing (QC): 6 On/Off Footwear (QC): 6 Toileting(FIM): 6 Toileting Hygiene (QC): 6 Transfers (B,C,W/C) (FIM): 5 Toilet/Commode Transfer(FIM): 6 Toilet/Commode Transfer (QC): 6 Shower Transfer(FIM): 5 Additional Goals: 1-Demonstrate ADL Tasks, 2-Verbalize Understanding, 3- ImproveStrength/Devin 1=Demonstrate adherence to instructed precautions during ADL tasks. 2=Patient will verbalize/demonstrate understanding of assistive devices/ modifications for ADL. 3=Patient will improve strength/tolerance for activity to enable patient to perform ADL's. OT Education/Plan Problem List/Assessment Assessment: Decreased Activ Tolerance, Decreased Safety Aware, Decreased UE Strength, Dependent Transfers, Impaired Bed Mobility, Impaired Coordination, Impaired Funct Balance, Impaired I ADL's, Impaired Self-Care Skills, Restricted Funct UE ROM Discharge Recommendations Plan/Recommendations: Continue POC Therapy D/C Recommendations: Home w/ Family Support, Occupational Therapy Home Care, Scheduled Assistance Equpiment Recommendations-D/C: Extended Bath Bench, Hip Kit Treatment Plan/Plan of Care Treatment,Training & Education: Yes Patient would benefit from OT for education, treatment and training to promote independence in ADL's, mobility, safety and/or upper extremity function for ADL' s. Plan of Care: ADL Retraining, Caregiver Training, Functional Mobility, Group Exercise/Act as Ind, UE Funct Exercise/Act Treatment Duration: May 22, 2016 Visits Per Week: 10-12 Minutes/Day (M-F): 60-90 Minutes/Day (Sat/Chan): PRN Agreement: Yes Rehab Potential: Good Time/GCodes Start Time: 09:30 Stop Time: 10:30 Total Time Billed (hr/min): 60 Billed Treatment Time 1, ADL x 45minutes, NM x 15minutes KAVITA ORTEGA OT May 07, 2016 10:50
--- NOTE | 2016-05-07 15:27 | Therapy Group Daily Note ---
Therapy Daily Group Note Patient Education Topic Fall Prevention Exercises LE Seated Exercise, UE Exercise Other/Notes Pt arrived to PT/OT Group by walking with SPC at [facility] with staff to Therapy [facility]. Pt participated in Group consisting of Introductions (Name, Where you are from and Most Embarrassing Moment), Seated UE & LE Exercises as well as Education on Fall Prevention. Pt actively participated in Exercises as well as verbally participated by giving Embarrassing Moment and giving One Way pt has made or will make an improvement at home to prevent falls. Pt then returned to room and transferred to bed to rest at end of Group with all needs met. Start Time: 13:00 Stop Time: 14:15 Total Billed Treatment Time: 75 Total Billed Treatment 1, GRP ETHEL [employer] [employer] May 07, 2016 15:27
[2016-05-07 18:12] VITALS: BP 107/61
[2016-05-07] MEDS: LACTULOSE SYRUP 10GM/15ML (ENULOSE) 30ML UDC PO PRN (20:13)
[2016-05-08] MEDS: oxyCODONE/APAP 7.5-325 MG (PERCOCET 7.5) TABLET PO PRN ×3 (04:30→19:33)
[2016-05-08 05:20] VITALS: BP_SYST 102; BP_SYST 167; BP_DIAS 64; BP_DIAS 69
--- NOTE | 2016-05-08 08:13 | PM & R (SOAP) Progress Note ---
Subjective Subjective/Events-last exam Patient was seen in his room this AM Having good return proximal rt Upper limb and lower limb but c/o increased tightness in low back using baclofen prn as well as Lortab.Patient min assist for transfers and gait Objective Exam Last Set of Vital Signs Vital Signs Date Time Temp Pulse Resp B/P (MAP) Pulse Ox O2 Delivery O2 Flow Rate FiO2 05/08/16 05:20 97.1 62 20 102/64 97 Room Air Capillary Refill : I&O Intake and Output 05/08/16 00:00 Intake Total 1050 ml Balance 1050 ml Intake Oral 1050 ml # Voids 5 # Bowel Movements 1 General: Alert, Oriented X3, Cooperative, No Acute Distress HEENT: Atraumatic, PERRLA, EOMI, Mucous Memb Moist/[place] Neck: Other (Soft C collar in place) Lungs: Clear to Auscultation Heart: Regular Rate Abdomen: Normal Bowel Sounds, Soft, No Tenderness Extremities: No Edema Neuro: Other (RT sided weakness) Psych/Mental Status: Mental Status NL Assessment/Plan Assessment Traumatic C6 quadriplegia s/p decompressive surgery DR Bennett [facility] [place] having return HX of substance abuse Constipation meds to be adjusted Plan Continue PT/OT Appreciate DR Napoles note and orders Team Conference held yesterday-See report for full functional update and POC and ELOS Check Lumbar spine Xray Add Flexeril=See orders. PRINCESS TURNER MD May 08, 2016 08:13
--- NOTE | 2016-05-08 08:36 | Progress Note (SOAP) ---
Subjective Subjective/Events-last exam patient feels he is improving good. Patient having spasm of back. Cervical spine fracture. Patient working well and trying Objective Exam Vital Signs Date Time Temp Pulse Resp B/P (MAP) Pulse Ox O2 Delivery O2 Flow Rate FiO2 05/08/16 05:20 97.1 62 20 102/64 97 Room Air 05/07/16 20:20 Room Air 05/07/16 18:12 98.3 71 18 107/61 97 Room Air 05/07/16 09:03 Room Air I & O 05/08/16 07:00 Intake Total 1390 ml Balance 1390 ml Capillary Refill : General Appearance: No Apparent Distress, Thin HEENT: Normal ENT Inspection, Other (ccervical,) Neck: Other (cervical collar) Respiratory: Lungs Clear, No Accessory Muscle Use, No Respiratory Distress Cardiovascular: Regular Rate, Rhythm, No Murmur Gastrointestinal: non tender, soft Assessment/Plan Assessment/Plan Assess & Plan/Chief Complaint cervical fracture. Ambulatory dysfunction. t history of alcoholism. History of tobaccoism. . 05/02/16. Cervical fracture. Ambulatory dysfunction. History of alcoholism. History of tobaccoism. Patient still constipated. . 05/05/16. Cervical fracture. Ambulatory dysfunction. History of alcoholism. History of tobaccoism. Patient getting around is 1 assist with walker. Patient not stable in his feet yet. . 05/06/16. Cervical fracture. Ambulatory dysfunction. Muscle spasms. Patient doing better and improving. Patient using a quad cane. . 05/07/16. Cervical fracture . Ambulatory dysfunction. Patient doing better and improving. Patient using a regular cane. Patient a work in progress. . 05/08/16. Cervical fracture. Ambulatory dysfunction. Spasm of back. Patient working hard. Patient improving. Patient using a regular cane Clinical Quality Measures DVT/VTE Risk/Contraindication: Risk Factor Score Per Nursin RFS Level Per Nursing on Admit: 4+=Very High BURT GARZA DO May 08, 2016 08:36
[2016-05-08] MEDS: DOCUSATE SODIUM 100 MG (COLACE) CAP PO SCH ×2 (08:43→20:33)
[2016-05-08] MEDS: BACLOFEN 10 MG (LIORESAL) TAB PO PRN ×2 (08:43→19:33)
[2016-05-08] MEDS: SENNA W/DOCUSATE (SENOKOT S) TABLET PO SCH ×2 (08:43→20:32)
[2016-05-08] MEDS: GABAPENTIN 100 MG (NEURONTIN) CAP PO SCH ×3 (08:43→20:33)
[2016-05-08] MEDS: MILK OF MAGNESIA 400 MG/5 ML 30 ML UDC PO SCH ×2 (08:44→19:33)
--- NOTE | 2016-05-08 09:06 | Physical Therapy Daily Note ---
PT Daily Note-Current Subjective Agrees. complains that is back is "tight". Pain Numeric Pain Scale: 4 Location: Posterior Location Body Site: Back Comment: "tight" Mental Status Patient Orientation: Person, Place, Time, Situation Transfers Functional [place] Measure 0=Not Assessed/NA 4=Minimal Assistance 1=Total Assistance 5=Supervision or Setup 2=Maximal Assistance 6=Modified [place] 3=Moderate Assistance 7=Complete IndependenceIRFPAI Quality Coding Scale 6 Independent with activity with or without an assistive device 5 Patient requires set up or clean up by helper. Patient completes activity by themselves 4 Supervision or touching assist (CGA). [place] provide cues , steadying assist 3 The helper provides less than half the effort to complete the activity 2 The helper provides more than half the effort to complete the activity 1 Dependent. The helper does all the effort to complete an activity 7 Patient refused to complete or attempt activity 9 The patient did not perform the activity before the current illness or injury 88 Not attempted due to Medical conditions or safety concerns Transfers (B, C, W/C) (FIM): 5 Supine to/from Sit: 5 Sit to/from Stand: 5 (unsteady at times and has some difficulty managing cane. ) Uses L UE to push up from bed/chair. Holds cane with right UE; going to try the "hurry cane" to assist with cane support and standing with transfers. Gait Training Does the Patient Walk?: Yes Gait (FIM): 4 Distance (FIM): 3=150 ft Distance: 150 ft x 3; 200 ft x 2 Gait Assistive Device: Cane Single Point AFO in situ right. CGA with gait for safety. Pt able to clear toes on the right initially, but with fatigue requires more cues and concentration to clear toes. Unsteady gait at times but any LOB episode, he is able to recover on his own, with CGA only. Treatments Worked on low back stretching to include LTR, SKTC, pelvic tilts, bridging....all to faciliate decreased "stiffness" in back. Sat with MHP on back and performed LE ther ex to include LAQ and hip flexion for LE strength to promote transfers and gait. Post treatment, pt in bed with MHP on back again. Assessment Current Status: Good Progress Functional transfers improving but still needs supervision; and still requires CGA with gait. LB stiffness limiting function this date. Pt expressed after stretching, it felt better and then after walking more it had returned. PT Short Term Goals Short Term Goals Time Frame: May 08, 2016 Transfers (B,C,W/C) (FIM): 4 Gait (FIM): 4 PT Assisted Goals Assisted Goals PT Mental Telepathist Goals Time Frame: May 22, 2016 Transfers (B,C,W/C) (FIM): 6 Sit to Lying (QC): 6 Lying-Sitting on Side/Bed(QC): 6 Sit to Stand (QC): 6 Rollin Roll Left to Right (QC): 6 Chair/Wgn-of-Xegjj Xfer(QC): 6 Car Transfer (QC): 6 Does the Patient Walk: Yes Gait (FIM): 6 Gait distance (FIM): 3=150 ft Walk 10 feet (QC): 6 Walk 10ft-Uneven Surface(QC): 6 Walk 50ft with 2 Turns (QC): 6 Walk 150 ft (QC): 6 Gait Level of Assist: 6 Gait Assistive Device: Walker Platform (or cand) Does the Pt use WC or Scooter?: No Stairs (FIM): 6 # of Steps: 12 1 Step (curb) (QC): 6 4 Steps (QC): 6 12 Steps (QC): 6 Picking up an Object (QC): 5 PT Plan Problem List Problem List: Activity Tolerance, Functional Strength, Safety, Balance, Gait, Transfer, Bed Mobility Treatment/Plan Treatment Plan: Continue Plan of Care Treatment Plan: Bed Mobility, Education, Functional Activity Devin, Functional Strength, Group Therapy, Gait, Safety, Therapeutic Exercise, Transfers Treatment Duration: May 22, 2016 Visits Per Week: 10-15 Minutes/Day (M-F): 60-90 Minutes/Day (Sat/Chan): prn Safety Risks/Education Patient Education: Transfer Techniques, Safety Issues Teaching Recipient: Patient Teaching Methods: Demonstration, Discussion Response to Teaching: Reinforcement Needed Time/GCodes Time In: 800 Time Out: 900 Total Billed Treatment Time: 60 Total Billed Treatment visit GT 30 EX 30 DEACON SALAZAR PT May 08, 2016 09:06
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
--- NOTE | 2016-05-08 11:12 | Occupational Ther Daily Note ---
OT Current Status-Daily Note Subjective Pt. is coming back from x-ray. States that his lower back is "tight." Does not give a pain number but states that it is uncomfortable. No more pain meds available for him at this time. During treatment time, nursing came and stated that pt.'s x-ray was negative. Appearance Pt. declines showering this morning, but requests to work on "my right hand." Mental Status/Objective Patient Orientation: Person, Place, Time, Situation Functional [place] Measure 0=Not Assessed/NA 4=Minimal Assistance 1=Total Assistance 5=Supervision or Setup 2=Maximal Assistance 6=Modified [place] 3=Moderate Assistance 7=Complete [place] ADL-Treatment Functional [place] Measure 0=Not Assessed/NA 4=Minimal Assistance 1=Total Assistance 5=Supervision or Setup 2=Maximal Assistance 6=Modified [place] 3=Moderate Assistance 7=Complete IndependenceIRFPAI Quality Coding Scale 6 Independent with activity with or without an assistive device 5 Patient requires set up or clean up by helper. Patient completes activity by themselves 4 Supervision or touching assist (CGA). [place] provide cues , steadying assist 3 The helper provides less than half the effort to complete the activity 2 The helper provides more than half the effort to complete the activity 1 Dependent. The helper does all the effort to complete an activity 7 Patient refused to complete or attempt activity 9 The patient did not perform the activity before the current illness or injury 88 Not attempted due to Medical conditions or safety concerns Transfers (B, C, W/C) (FIM): 5 (Pt. is able to ambulate with single point cane and transfer into/out of bed with SBA.) Other Treatment Pt. tolerated e-stim to right UE. Tolerated 6 sameera-amps for MP flexion x 10 minutes, 8 sameera-amps to wrist extension x 10 minutes, and 8 sameera-amps to wrist flexion x 10 minutes. Pt. tolerated this well for increased muscle stimulation and strength control. Pt. then participated in series of right UE activities. Donned pillow case over right hand and completed shoulder flexion exercises at table top level. Able to slide arm forward on table x 15reps x 3 sets. Pt. then practiced utilizing tip pinch on right hand with holding roller checker pieces and putting them into container, and holding string to put bead on string. Pt. fatigues easily and requires frequent rest breaks. OT fit pt. for jaramillo splint to keep fingers in extension during night time. At this time, pt. only has slight tone in right hand, but wanted to be pro-active about keeping fingers stretched out while working towards independence. Pt. given built up foam pen. Able to write name and a few shapes with very light pressure control. Pt. is encouraged to practice this in his room, as well as using foam built up to put on utensil and eat with. Verbalized understanding. Ambulated back to room with SBA and transferred to bed with SBA. All needs met in room. Education OT Patient Education: Correct positioning, Exercise program, Modified ADL techniques, Progress toward Goal/Update tx plan, Purpose of tx/functional activities, Reviewed precautions, Rehab process, Transfer techniques Teaching Recipient: Patient Teaching Methods: Demonstration, Discussion Response to Teaching: Verbalize Understanding, Return Demonstration OT Short Term Goals Short Term Goals Time Frame: May 08, 2016 Eating(FIM): 6 Grooming(FIM): 5 Bathing(FIM): 5 Transfers (B,C,W/C) (FIM): 4 Toilet/Commode Transfer(FIM): 4 Shower Transfer(FIM): 4 Additional Short Term Goals: 1-Demonstrate ADL Tasks, 2-Verbalize Understanding , 3-ImproveStrength/Devin 1=Demonstrate adherence to instructed precautions during ADL tasks. 2=Patient will verbalize/demonstrate understanding of assistive devices/ modifications for ADL. 3=Patient will improve strength/tolerance for activity to enable patient to perform ADL's. OT Crime Investigator Special Agent Goals [facility] Goals Time Frame: May 22, 2016 Eating (FIM): 6 Eating (QC): 6 Groomin Oral Hygiene (QC): 6 Bathing(FIM): 5 Shower/Bathe Self (QC): 5 Upper Body Dressing(FIM): 6 Upper Body Dressing (QC): 6 Lower Body Dressing(FIM): 6 Lower Body Dressing (QC): 6 On/Off Footwear (QC): 6 Toileting(FIM): 6 Toileting Hygiene (QC): 6 Transfers (B,C,W/C) (FIM): 5 Toilet/Commode Transfer(FIM): 6 Toilet/Commode Transfer (QC): 6 Shower Transfer(FIM): 5 Additional Goals: 1-Demonstrate ADL Tasks, 2-Verbalize Understanding, 3- ImproveStrength/Devin 1=Demonstrate adherence to instructed precautions during ADL tasks. 2=Patient will verbalize/demonstrate understanding of assistive devices/ modifications for ADL. 3=Patient will improve strength/tolerance for activity to enable patient to perform ADL's. OT Education/Plan Problem List/Assessment Assessment: Decreased Activ Tolerance, Decreased UE Strength, Impaired Coordination, Impaired I ADL's, Impaired Self-Care Skills, Restricted Funct UE ROM Discharge Recommendations Plan/Recommendations: Continue POC Therapy D/C Recommendations: Home w/ Family Support, Occupational Therapy Home Care Equpiment Recommendations-D/C: Extended Bath Bench, Hip Kit Treatment Plan/Plan of Care Treatment,Training & Education: Yes Patient would benefit from OT for education, treatment and training to promote independence in ADL's, mobility, safety and/or upper extremity function for ADL' s. Plan of Care: ADL Retraining, Caregiver Training, Functional Mobility, Group Exercise/Act as Ind, UE Funct Exercise/Act Treatment Duration: May 22, 2016 Visits Per Week: 10-12 Minutes/Day (M-F): 60-90 Minutes/Day (Sat/Chan): PRN Agreement: Yes Rehab Potential: Good Time/GCodes Start Time: 09:15 Stop Time: 10:45 Total Time Billed (hr/min): 90 Billed Treatment Time 1, NM x 45minutes, EX x 45minutes KAVITA ORTEGA OT May 08, 2016 11:12
--- NOTE | 2016-05-08 14:55 | Physical Therapy Daily Note ---
PT Daily Note-Current Subjective Agreeable. Reports his back is feeling much better this pm Transfers Functional [place] Measure 0=Not Assessed/NA 4=Minimal Assistance 1=Total Assistance 5=Supervision or Setup 2=Maximal Assistance 6=Modified [place] 3=Moderate Assistance 7=Complete IndependenceIRFPAI Quality Coding Scale 6 Independent with activity with or without an assistive device 5 Patient requires set up or clean up by helper. Patient completes activity by themselves 4 Supervision or touching assist (CGA). [place] provide cues , steadying assist 3 The helper provides less than half the effort to complete the activity 2 The helper provides more than half the effort to complete the activity 1 Dependent. The helper does all the effort to complete an activity 7 Patient refused to complete or attempt activity 9 The patient did not perform the activity before the current illness or injury 88 Not attempted due to Medical conditions or safety concerns Treatments Education on importance of using call light to get up in room and not walking unassisted in room--pt had gotten up earlier without assit. Donned AFO and hard cervical collar. Gait wit cane 150 ft x 3 with CGA. Nu step x 17 minutes for functional LE strength and activity tolerance. In chair post treatment with needs met. Assessment Current Status: Good Progress Progressing. Foot tends to drag with gait as he fatigues. Pt seems to be locking right knee in extension during gait. PT Short Term Goals Short Term Goals Time Frame: May 08, 2016 Transfers (B,C,W/C) (FIM): 4 Gait (FIM): 4 PT Half-Way Goals Half-Way Goals PT Half-Way Goals Time Frame: May 22, 2016 Transfers (B,C,W/C) (FIM): 6 Sit to Lying (QC): 6 Lying-Sitting on Side/Bed(QC): 6 Sit to Stand (QC): 6 Rollin Roll Left to Right (QC): 6 Chair/Ccq-pp-Jvjek Xfer(QC): 6 Car Transfer (QC): 6 Does the Patient Walk: Yes Gait (FIM): 6 Gait distance (FIM): 3=150 ft Walk 10 feet (QC): 6 Walk 10ft-Uneven Surface(QC): 6 Walk 50ft with 2 Turns (QC): 6 Walk 150 ft (QC): 6 Gait Level of Assist: 6 Gait Assistive Device: Walker Platform (or cand) Does the Pt use WC or Scooter?: No Stairs (FIM): 6 # of Steps: 12 1 Step (curb) (QC): 6 4 Steps (QC): 6 12 Steps (QC): 6 Picking up an Object (QC): 5 PT Plan Problem List Problem List: Activity Tolerance, Functional Strength, Safety, Balance, Gait, Transfer Treatment/Plan Treatment Plan: Continue Plan of Care Treatment Plan: Bed Mobility, Education, Functional Activity Devin, Functional Strength, Group Therapy, Gait, Safety, Therapeutic Exercise, Transfers Treatment Duration: May 22, 2016 Visits Per Week: 10-15 Minutes/Day (M-F): 60-90 Minutes/Day (Sat/Chan): prn Safety Risks/Education Patient Education: Safety Issues Teaching Recipient: Patient Teaching Methods: Discussion Response to Teaching: Verbalize Understanding Not to get up unassisted due to fall risk. Time/GCodes Time In: 1315 Time Out: 1345 Total Billed Treatment Time: 30 Total Billed Treatment visit EX 17 GT 13 DEACON SALAZAR PT May 08, 2016 14:55
[2016-05-08] MEDS: BACITRACIN OINTMENT 28 GM TUBE TOP SCH (18:39)
[2016-05-08 18:56] VITALS: BP 107/66
[2016-05-09] MEDS: oxyCODONE/APAP 7.5-325 MG (PERCOCET 7.5) TABLET PO PRN ×3 (02:08→20:33)
[2016-05-09 05:00] VITALS: BP 107/53
[2016-05-09] MEDS: BACLOFEN 10 MG (LIORESAL) TAB PO PRN ×2 (08:04→20:33)
[2016-05-09] MEDS: DOCUSATE SODIUM 100 MG (COLACE) CAP PO SCH ×2 (08:04→20:32)
[2016-05-09] MEDS: GABAPENTIN 100 MG (NEURONTIN) CAP PO SCH ×3 (08:04→20:33)
[2016-05-09] MEDS: MILK OF MAGNESIA 400 MG/5 ML 30 ML UDC PO SCH (08:04)
[2016-05-09] MEDS: SENNA W/DOCUSATE (SENOKOT S) TABLET PO SCH ×2 (08:04→20:32)
--- NOTE | 2016-05-09 08:50 | Progress Note (SOAP) ---
Subjective Subjective/Events-last exam cervical spine fracture. Still has some muscle spasms in lower back. Lumbar x-ray the same. Patient working on improving and working hard Objective Exam Vital Signs Date Time Temp Pulse Resp B/P (MAP) Pulse Ox O2 Delivery O2 Flow Rate FiO2 05/09/16 05:00 97.3 60 18 107/53 97 Room Air 05/08/16 20:46 Room Air 05/08/16 18:56 98.0 69 16 107/66 96 Room Air 05/08/16 08:55 Room Air I & O 05/09/16 07:00 Intake Total 1050 ml Balance 1050 ml Capillary Refill : General Appearance: No Apparent Distress, Thin HEENT: Normal ENT Inspection Respiratory: Chest Non Tender, No Accessory Muscle Use, No Respiratory Distress Cardiovascular: Regular Rate, Rhythm Assessment/Plan Assessment/Plan Assess & Plan/Chief Complaint cervical fracture. Ambulatory dysfunction. t history of alcoholism. History of tobaccoism. . 05/02/16. Cervical fracture. Ambulatory dysfunction. History of alcoholism. History of tobaccoism. Patient still constipated. . 05/05/16. Cervical fracture. Ambulatory dysfunction. History of alcoholism. History of tobaccoism. Patient getting around is 1 assist with walker. Patient not stable in his feet yet. . 05/06/16. Cervical fracture. Ambulatory dysfunction. Muscle spasms. Patient doing better and improving. Patient using a quad cane. . 05/07/16. Cervical fracture . Ambulatory dysfunction. Patient doing better and improving. Patient using a regular cane. Patient a work in progress. . 05/08/16. Cervical fracture. Ambulatory dysfunction. Spasm of back. Patient working hard. Patient improving. Patient using a regular cane. . 05/09/16. Cervical fracture. Ambulatory dysfunction. A spasm of lower back. Lumbar x-ray the same from previous her Patient working hard Clinical Quality Measures DVT/VTE Risk/Contraindication: Risk Factor Score Per Nursin RFS Level Per Nursing on Admit: 4+=Very High BURT GARZA DO May 09, 2016 08:50
--- NOTE | 2016-05-09 08:53 | Occupational Ther Daily Note ---
OT Current Status-Daily Note Subjective Pt sleeping in bed, woke easily to name. Pt agreed to therapy. Pt c/o back being stiff. Mental Status/Objective Patient Orientation: Person, Place, Time, Situation Functional [place] Measure 0=Not Assessed/NA 4=Minimal Assistance 1=Total Assistance 5=Supervision or Setup 2=Maximal Assistance 6=Modified [place] 3=Moderate Assistance 7=Complete [place] ADL-Treatment Pt able to go from supine to sitting EOB with HOB elevated by self. Pt then ambulated into bathroom with SBA using cane. Transferred to shower with SBA using grabbars, shower bench and cane. Pt bathed self with SBA using long handle sponge, grabbars, hand held shower and shower bench. Pt dried self. After set up, pt is able to don/doff shirt by self. Min A with donning lower body clothing using AE. Pt demonstrated AROM with B UE during ADLs. After therapy, pt ordered breakfast, nrsg present in room and all needs met. Call light/phone within reach. Functional [place] Measure 0=Not Assessed/NA 4=Minimal Assistance 1=Total Assistance 5=Supervision or Setup 2=Maximal Assistance 6=Modified [place] 3=Moderate Assistance 7=Complete IndependenceIRFPAI Quality Coding Scale 6 Independent with activity with or without an assistive device 5 Patient requires set up or clean up by helper. Patient completes activity by themselves 4 Supervision or touching assist (CGA). [place] provide cues , steadying assist 3 The helper provides less than half the effort to complete the activity 2 The helper provides more than half the effort to complete the activity 1 Dependent. The helper does all the effort to complete an activity 7 Patient refused to complete or attempt activity 9 The patient did not perform the activity before the current illness or injury 88 Not attempted due to Medical conditions or safety concerns OT Short Term Goals Short Term Goals Time Frame: May 08, 2016 Eating(FIM): 6 Grooming(FIM): 5 Bathing(FIM): 5 Transfers (B,C,W/C) (FIM): 4 Toilet/Commode Transfer(FIM): 4 Shower Transfer(FIM): 4 Additional Short Term Goals: 1-Demonstrate ADL Tasks, 2-Verbalize Understanding , 3-ImproveStrength/Devin 1=Demonstrate adherence to instructed precautions during ADL tasks. 2=Patient will verbalize/demonstrate understanding of assistive devices/ modifications for ADL. 3=Patient will improve strength/tolerance for activity to enable patient to perform ADL's. OT Fdc Goals Size Marker Goals Time Frame: May 22, 2016 Eating (FIM): 6 Eating (QC): 6 Groomin Oral Hygiene (QC): 6 Bathing(FIM): 5 Shower/Bathe Self (QC): 5 Upper Body Dressing(FIM): 6 Upper Body Dressing (QC): 6 Lower Body Dressing(FIM): 6 Lower Body Dressing (QC): 6 On/Off Footwear (QC): 6 Toileting(FIM): 6 Toileting Hygiene (QC): 6 Transfers (B,C,W/C) (FIM): 5 Toilet/Commode Transfer(FIM): 6 Toilet/Commode Transfer (QC): 6 Shower Transfer(FIM): 5 Additional Goals: 1-Demonstrate ADL Tasks, 2-Verbalize Understanding, 3- ImproveStrength/Devin 1=Demonstrate adherence to instructed precautions during ADL tasks. 2=Patient will verbalize/demonstrate understanding of assistive devices/ modifications for ADL. 3=Patient will improve strength/tolerance for activity to enable patient to perform ADL's. OT Education/Plan Discharge Recommendations Plan/Recommendations: Continue POC Treatment Plan/Plan of Care Patient would benefit from OT for education, treatment and training to promote independence in ADL's, mobility, safety and/or upper extremity function for ADL' s. Plan of Care: ADL Retraining, Caregiver Training, Functional Mobility, Group Exercise/Act as Ind, UE Funct Exercise/Act Treatment Duration: May 22, 2016 Visits Per Week: 10-12 Minutes/Day (M-F): 60-90 Minutes/Day (Sat/Chan): PRN Agreement: Yes Rehab Potential: Good Time/GCodes Start Time: 08:00 Stop Time: 09:00 Total Time Billed (hr/min): 60 Billed Treatment Time 1 visit-ADL 4 (60 min) DEACON CARPENTER May 09, 2016 08:53
--- NOTE | 2016-05-09 09:57 | Physical Therapy Daily Note ---
PT Daily Note-Current Subjective Patient in recliner pre tx, agrees to PT, states he has pain of 6/10 in low back. Appearance Patient in bed post tx with nurse call, phone, tray, all needs met. Mental Status Patient Orientation: Normal For Age cervical collar Transfers Functional [place] Measure 0=Not Assessed/NA 4=Minimal Assistance 1=Total Assistance 5=Supervision or Setup 2=Maximal Assistance 6=Modified [place] 3=Moderate Assistance 7=Complete IndependenceIRFPAI Quality Coding Scale 6 Independent with activity with or without an assistive device 5 Patient requires set up or clean up by helper. Patient completes activity by themselves 4 Supervision or touching assist (CGA). [place] provide cues , steadying assist 3 The helper provides less than half the effort to complete the activity 2 The helper provides more than half the effort to complete the activity 1 Dependent. The helper does all the effort to complete an activity 7 Patient refused to complete or attempt activity 9 The patient did not perform the activity before the current illness or injury 88 Not attempted due to Medical conditions or safety concerns Transfers (B, C, W/C) (FIM): 4 Sit to/from Stand: 4 Gait Training Gait (FIM): 4 Distance: 350', 150' Gait Level of Assist: 4 Gait Persons Needed: 1 Gait Assistive Device: Cane Single Point slow, toes on the right drag some even with using an AFO, also right knee hyperextends, CGA, no LOB Stair Training Stair Training: Handrails/: 1 handrail Stairs (FIM): 4 #of Steps: 12 Stairs: Pattern: Step to Level of Assist: 4 CGA, correct stepping pattern, no LOB Exercises LAQ right side with 2# ankle weight for 5 min, hip/knee flexion in parallel bars with 2# ankle weight right side x25 NuStep Minutes: 15 NuStep Workload: 5 Treatments transfers, ambulation, stair training, functional strengthening Assessment Current Status: Fair Progress improving balance and endurance PT Short Term Goals Short Term Goals Time Frame: May 08, 2016 Transfers (B,C,W/C) (FIM): 4 Gait (FIM): 4 PT Dry Cleaner Helper Goals Usp Goals PT Usp Goals Time Frame: May 22, 2016 Transfers (B,C,W/C) (FIM): 6 Sit to Lying (QC): 6 Lying-Sitting on Side/Bed(QC): 6 Sit to Stand (QC): 6 Rollin Roll Left to Right (QC): 6 Chair/Zfk-mz-Zgmsx Xfer(QC): 6 Car Transfer (QC): 6 Does the Patient Walk: Yes Gait (FIM): 6 Gait distance (FIM): 3=150 ft Walk 10 feet (QC): 6 Walk 10ft-Uneven Surface(QC): 6 Walk 50ft with 2 Turns (QC): 6 Walk 150 ft (QC): 6 Gait Level of Assist: 6 Gait Assistive Device: Walker Platform (or cand) Does the Pt use WC or Scooter?: No Stairs (FIM): 6 # of Steps: 12 1 Step (curb) (QC): 6 4 Steps (QC): 6 12 Steps (QC): 6 Picking up an Object (QC): 5 PT Plan Problem List Problem List: Activity Tolerance, Functional Strength, Safety, Balance, Gait, Transfer, ROM Treatment/Plan Treatment Plan: Continue Plan of Care Treatment Plan: Bed Mobility, Education, Functional Activity Devin, Functional Strength, Group Therapy, Gait, Safety, Therapeutic Exercise, Transfers Treatment Duration: May 22, 2016 Visits Per Week: 10-15 Minutes/Day (M-F): 60-90 Minutes/Day (Sat/Chan): prn Safety Risks/Education Patient Education: Gait Training, Transfer Techniques, Steps, Safety Issues Teaching Recipient: Patient Teaching Methods: Demonstration, Discussion Response to Teaching: Reinforcement Needed Time/GCodes Time In: 900 Time Out: 1000 Total Billed Treatment Time: 60 Total Billed Treatment 1 visit EX 30' GT 30 min SANGEETHA RIVAS PT May 09, 2016 09:57
[2016-05-09] MEDS: LACTULOSE SYRUP 10GM/15ML (ENULOSE) 30ML UDC PO PRN ×2 (12:08→20:33)
--- NOTE | 2016-05-09 14:50 | Therapy Group Daily Note ---
Therapy Daily Group Note Exercises Balance, Sit to/from Stand, Fine Motor, UE Exercise Other/Notes Pt ambulated to OT/PT group holding onto cane though didn't use it. Group consisted of introductions, socialization, UE exercises, memory recall, fine motor, sit to stand activities and transfers. Pt was able to contribute to group conversations and answer questions appropriately. Pt was able to recall safety items from previous group without difficulty. Pt was able to complete sit to stand and UE exercises with CGA for safety. Pt assisted other group members during fine motor activity. After group, pt ambulated with cane to room and was able to lay in bed by self. Call light/phone in reach. All needs met in room. Start Time: 13:00 Stop Time: 14:15 Total Billed Treatment Time: 75 Total Billed Treatment 1-GRP DEACON CARPENTER May 09, 2016 14:50
[2016-05-09] MEDS: BACITRACIN OINTMENT 28 GM TUBE TOP SCH (16:00)
[2016-05-09 18:04] VITALS: BP 108/64
[2016-05-10] MEDS: oxyCODONE/APAP 7.5-325 MG (PERCOCET 7.5) TABLET PO PRN ×4 (03:52→22:53)
[2016-05-10 05:03] VITALS: BP 113/68
[2016-05-10] MEDS: SENNA W/DOCUSATE (SENOKOT S) TABLET PO SCH ×2 (08:00→21:14)
[2016-05-10] MEDS: BACLOFEN 10 MG (LIORESAL) TAB PO PRN ×2 (08:00→22:52)
[2016-05-10] MEDS: DOCUSATE SODIUM 100 MG (COLACE) CAP PO SCH ×2 (08:00→21:14)
[2016-05-10] MEDS: LACTULOSE SYRUP 10GM/15ML (ENULOSE) 30ML UDC PO PRN (08:01)
[2016-05-10] MEDS: GABAPENTIN 100 MG (NEURONTIN) CAP PO SCH ×3 (08:01→21:14)
--- NOTE | 2016-05-10 11:17 | Physical Therapy Daily Note ---
PT Daily Note-Current Subjective States that he is doing okay today. Pain Numeric Pain Scale: 0-No Pain Transfers Functional [place] Measure 0=Not Assessed/NA 4=Minimal Assistance 1=Total Assistance 5=Supervision or Setup 2=Maximal Assistance 6=Modified [place] 3=Moderate Assistance 7=Complete IndependenceIRFPAI Quality Coding Scale 6 Independent with activity with or without an assistive device 5 Patient requires set up or clean up by helper. Patient completes activity by themselves 4 Supervision or touching assist (CGA). [place] provide cues , steadying assist 3 The helper provides less than half the effort to complete the activity 2 The helper provides more than half the effort to complete the activity 1 Dependent. The helper does all the effort to complete an activity 7 Patient refused to complete or attempt activity 9 The patient did not perform the activity before the current illness or injury 88 Not attempted due to Medical conditions or safety concerns Transfers (B, C, W/C) (FIM): 5 Sit to/from Stand: 5 Bed to/from Chair: 5 Gait Training Gait (FIM): 5 Distance (FIM): 3=150 ft Distance: 300' Gait Level of Assist: 5 Gait Persons Needed: 1 Gait Assistive Device: Cane Single Point Exercises Seated Therapy Exercises: Long arc quads, Hip flexion Seated Reps: 15 Assessment Current Status: Excellent Progress The patient did well with ambulation however he did have one episode of LOB that required min assist to keep from falling. PT Short Term Goals Short Term Goals Time Frame: May 08, 2016 Transfers (B,C,W/C) (FIM): 4 Gait (FIM): 4 PT Skilled Nursing Goals Sales Representative [employer] Goals PT Skilled Nursing Goals Time Frame: May 22, 2016 Transfers (B,C,W/C) (FIM): 6 Sit to Lying (QC): 6 Lying-Sitting on Side/Bed(QC): 6 Sit to Stand (QC): 6 Rollin Roll Left to Right (QC): 6 Chair/Wdz-zu-Boecy Xfer(QC): 6 Car Transfer (QC): 6 Does the Patient Walk: Yes Gait (FIM): 6 Gait distance (FIM): 3=150 ft Walk 10 feet (QC): 6 Walk 10ft-Uneven Surface(QC): 6 Walk 50ft with 2 Turns (QC): 6 Walk 150 ft (QC): 6 Gait Level of Assist: 6 Gait Assistive Device: Walker Platform (or cand) Does the Pt use WC or Scooter?: No Stairs (FIM): 6 # of Steps: 12 1 Step (curb) (QC): 6 4 Steps (QC): 6 12 Steps (QC): 6 Picking up an Object (QC): 5 PT Plan Treatment/Plan Treatment Plan: Continue Plan of Care Treatment Plan: Bed Mobility, Education, Functional Activity Devin, Functional Strength, Group Therapy, Gait, Safety, Therapeutic Exercise, Transfers Treatment Duration: May 22, 2016 Visits Per Week: 10-15 Minutes/Day (M-F): 60-90 Minutes/Day (Sat/Chan): prn Time/GCodes Time In: 1050 Time Out: 1110 Total Billed Treatment Time: 20' Total Billed Treatment 1, GT x 15', EX x 5' OLIVIA SEYMOUR PT May 10, 2016 11:17
[2016-05-10 18:14] VITALS: BP 112/71
[2016-05-11] MEDS: BACLOFEN 10 MG (LIORESAL) TAB PO PRN (06:44)
[2016-05-11] MEDS: oxyCODONE/APAP 7.5-325 MG (PERCOCET 7.5) TABLET PO PRN ×3 (06:45→18:32)
[2016-05-11 06:59] VITALS: BP 107/67
[2016-05-11] MEDS: GABAPENTIN 100 MG (NEURONTIN) CAP PO SCH ×3 (09:15→20:07)
[2016-05-11] MEDS: DOCUSATE SODIUM 100 MG (COLACE) CAP PO SCH ×2 (09:15→20:07)
[2016-05-11] MEDS: SENNA W/DOCUSATE (SENOKOT S) TABLET PO SCH ×2 (09:15→20:07)
[2016-05-11 17:53] VITALS: BP 122/68
[2016-05-11] MEDS: LACTULOSE SYRUP 10GM/15ML (ENULOSE) 30ML UDC PO PRN (20:08)
[2016-05-12] MEDS: BACLOFEN 10 MG (LIORESAL) TAB PO PRN ×2 (02:55→17:40)
[2016-05-12] MEDS: oxyCODONE/APAP 7.5-325 MG (PERCOCET 7.5) TABLET PO PRN ×4 (02:56→17:40)
[2016-05-12 05:05] VITALS: BP 104/64
--- NOTE | 2016-05-12 07:51 | Progress Note (SOAP) ---
Subjective Subjective/Events-last exam cervical spine fracture. Patient voices no complaints Patient did have a bowel movement . The other day. Objective Exam Vital Signs Date Time Temp Pulse Resp B/P (MAP) Pulse Ox O2 Delivery O2 Flow Rate FiO2 05/12/16 05:05 98.1 66 18 104/64 97 Room Air 05/11/16 20:13 Room Air 05/11/16 17:53 97.2 63 18 122/68 94 Room Air 05/11/16 09:24 Room Air I & O 05/12/16 07:00 Intake Total 1500 ml Balance 1500 ml Capillary Refill : General Appearance: No Apparent Distress, Thin HEENT: Normal ENT Inspection Respiratory: Chest Non Tender, No Accessory Muscle Use, No Respiratory Distress Cardiovascular: Regular Rate, Rhythm, No Murmur Assessment/Plan Assessment/Plan Assess & Plan/Chief Complaint cervical fracture. Ambulatory dysfunction. t history of alcoholism. History of tobaccoism. . 05/02/16. Cervical fracture. Ambulatory dysfunction. History of alcoholism. History of tobaccoism. Patient still constipated. . 05/05/16. Cervical fracture. Ambulatory dysfunction. History of alcoholism. History of tobaccoism. Patient getting around is 1 assist with walker. Patient not stable in his feet yet. . 05/06/16. Cervical fracture. Ambulatory dysfunction. Muscle spasms. Patient doing better and improving. Patient using a quad cane. . 05/07/16. Cervical fracture . Ambulatory dysfunction. Patient doing better and improving. Patient using a regular cane. Patient a work in progress. . 05/08/16. Cervical fracture. Ambulatory dysfunction. Spasm of back. Patient working hard. Patient improving. Patient using a regular cane. . 05/09/16. Cervical fracture. Ambulatory dysfunction. A spasm of lower back. Lumbar x-ray the same from previous her Patient working hard. . . Cervical fraction. Ambulatory dysfunction. Patient improving. Patient did have bowel movement the other day Clinical Quality Measures DVT/VTE Risk/Contraindication: Risk Factor Score Per Nursin RFS Level Per Nursing on Admit: 4+=Very High BURT GARZA DO May 12, 2016 07:51
[2016-05-12] MEDS: GABAPENTIN 100 MG (NEURONTIN) CAP PO SCH (08:10)
[2016-05-12] MEDS: DOCUSATE SODIUM 100 MG (COLACE) CAP PO SCH ×2 (08:10→20:43)
[2016-05-12] MEDS: SENNA W/DOCUSATE (SENOKOT S) TABLET PO SCH ×2 (08:11→20:43)
--- NOTE | 2016-05-12 12:10 | Physical Therapy Daily Note ---
PT Daily Note-Current Subjective Pt. states his pain in R LE is approx 6/10 and waxes and wanes with spasms etc. Agrees to Rx. Pain Numeric Pain Scale: 6 Location: Right Location Body Site: Calf Pain Description: Cramping Mental Status Patient Orientation: Normal For Age Attachments: Other-See Comments (AFO right shoe/foot) Transfers Functional [place] Measure 0=Not Assessed/NA 4=Minimal Assistance 1=Total Assistance 5=Supervision or Setup 2=Maximal Assistance 6=Modified [place] 3=Moderate Assistance 7=Complete IndependenceIRFPAI Quality Coding Scale 6 Independent with activity with or without an assistive device 5 Patient requires set up or clean up by helper. Patient completes activity by themselves 4 Supervision or touching assist (CGA). Seth provide cues , steadying assist 3 The helper provides less than half the effort to complete the activity 2 The helper provides more than half the effort to complete the activity 1 Dependent. The helper does all the effort to complete an activity 7 Patient refused to complete or attempt activity 9 The patient did not perform the activity before the current illness or injury 88 Not attempted due to Medical conditions or safety concerns Transfers (B, C, W/C) (FIM): 5 Scootin Rollin Supine to/from Sit: 6 Sit to/from Stand: 5 Gait Training Does the Patient Walk?: Yes Gait (FIM): 4 Distance (FIM): 3=150 ft (200x3) Gait Level of Assist: 4 Gait Persons Needed: 1 Gait Assistive Device: Cane Single Point pt. c/o some discomfort in his back today that is likely from pt. hip hiking and compensating to clear right foot during gait. Pt. never had LOB but does speed his velocity more than likely to help assist with swing phase RLE. fig 8s and tight area gait challenge with pt. managing well Stair Training Stair Training: Handrails/: 1 handrail Stairs (FIM): 4 #of Steps: 12 Stairs: Pattern: Step to Level of Assist: 4 pt. did descend with wrong LE one time and needed some assist but felt he could have recovered without assist Exercises Supine Ex: Ankle pumps (right HC stretchg 3x20s), Quad Set, Rolling, Glut sets , Heel Slides (assist right), Scooting, Straight leg raise, Hip abd/add Supine Reps: 15 Standing: Hip Abduction, Marching, Mini squats Standing Reps: 12 in supine pt. rolled and attempted side abd with right as well as clam shells, all required assist, pt did accomplish quadruped but difficult to maintain NuStep Minutes: 12 NuStep Workload: 3 Neuromuscular stretching and management of RLE discussed PT Short Term Goals Short Term Goals Time Frame: May 08, 2016 Transfers (B,C,W/C) (FIM): 4 Gait (FIM): 4 PT Correction Goals Assistant Manager Of Operations Goals PT Assistant Manager Of Operations Goals Time Frame: May 22, 2016 Transfers (B,C,W/C) (FIM): 6 Sit to Lying (QC): 6 Lying-Sitting on Side/Bed(QC): 6 Sit to Stand (QC): 6 Rollin Roll Left to Right (QC): 6 Chair/Wpx-ho-Izbze Xfer(QC): 6 Car Transfer (QC): 6 Does the Patient Walk: Yes Gait (FIM): 6 Gait distance (FIM): 3=150 ft Walk 10 feet (QC): 6 Walk 10ft-Uneven Surface(QC): 6 Walk 50ft with 2 Turns (QC): 6 Walk 150 ft (QC): 6 Gait Level of Assist: 6 Gait Assistive Device: Walker Platform (or cand) Does the Pt use WC or Scooter?: No Stairs (FIM): 6 # of Steps: 12 1 Step (curb) (QC): 6 4 Steps (QC): 6 12 Steps (QC): 6 Picking up an Object (QC): 5 PT Plan Treatment/Plan Treatment Plan: Bed Mobility, Education, Functional Activity Devin, Functional Strength, Group Therapy, Gait, Safety, Therapeutic Exercise, Transfers Treatment Duration: May 22, 2016 Visits Per Week: 10-15 Minutes/Day (M-F): 60-90 Minutes/Day (Sat/Chan): prn Safety Risks/Education Patient Education: Gait Training, Transfer Techniques, Steps, Correct Positioning, Disease Process, Safety Issues Teaching Recipient: Patient Teaching Methods: Demonstration, Discussion Response to Teaching: Verbalize Understanding, Return Demonstration, Reinforcement Needed Time/GCodes Time In: 1115 Time Out: 1215 Total Billed Treatment Time: 60 Total Billed Treatment 1,EX30m,FA15m,GT15m G Codes Necessary: ELIZABETH Patel PROCUREMENT INTERN May 12, 2016 12:10
[2016-05-12] MEDS: GABAPENTIN 300 MG (NEURONTIN) CAP PO SCH ×2 (13:12→20:43)
--- NOTE | 2016-05-12 13:46 | Occupational Ther Daily Note ---
OT Current Status-Daily Note Subjective Pt. requests that his nerve medication for nerve pain be increased. Let nursing know. No pain number reported. Appearance Pt. is in bed. Agrees to treatment. States that his girlfriend needs to shower , and so pt. agrees to shower in big shower down the waters. Mental Status/Objective Patient Orientation: Person, Place, Time, Situation Functional [place] Measure 0=Not Assessed/NA 4=Minimal Assistance 1=Total Assistance 5=Supervision or Setup 2=Maximal Assistance 6=Modified [place] 3=Moderate Assistance 7=Complete [place] ADL-Treatment Functional [place] Measure 0=Not Assessed/NA 4=Minimal Assistance 1=Total Assistance 5=Supervision or Setup 2=Maximal Assistance 6=Modified [place] 3=Moderate Assistance 7=Complete IndependenceIRFPAI Quality Coding Scale 6 Independent with activity with or without an assistive device 5 Patient requires set up or clean up by helper. Patient completes activity by themselves 4 Supervision or touching assist (CGA). [place] provide cues , steadying assist 3 The helper provides less than half the effort to complete the activity 2 The helper provides more than half the effort to complete the activity 1 Dependent. The helper does all the effort to complete an activity 7 Patient refused to complete or attempt activity 9 The patient did not perform the activity before the current illness or injury 88 Not attempted due to Medical conditions or safety concerns Bathing (FIM): 5 (Pt. is able to bathe self with SBA for safety.) Shower/Bathe Self (QC): 4 Upper Body (FIM): 5 (Pt. is able to doff/don shirt with SBA.) Upper Body Dressing (QC): 4 Lower Body Dressing (FIM): 4 (Pt. requires min assist to don socks. Does not bring in AE with him as he feels that he can do it on his own. However, requires assistance.) Lower Body Dressing (QC): 4 On/Off Footwear (QC): 3 Transfers (B, C, W/C) (FIM): 5 (Pt. is able to perform all transfers with SBA using single point cane.) Shower Transfer(FIM): 5 Other Treatment After ADLs in shower room, pt. agreed to ambulate to therapy gym with SBA. Completed armbike task with min resistance on armbike x 10 minutes. Pt. is able to somewhat grasp pedal with right hand, but this becomes difficult for him after awhile and therefore only uses left hand. Tolerated treatment for increased independence with use of right hand for daily tasks. Ambulated back to room. Transferred to bed with SBA. All needs met in room. Education OT Patient Education: Exercise program, Modified ADL techniques, Progress toward Goal/Update tx plan, Purpose of tx/functional activities, Reviewed precautions, Rehab process, Transfer techniques Teaching Recipient: Patient Teaching Methods: Demonstration, Discussion Response to Teaching: Verbalize Understanding, Return Demonstration OT Short Term Goals Short Term Goals Time Frame: May 08, 2016 Eating(FIM): 6 Grooming(FIM): 5 Bathing(FIM): 5 Transfers (B,C,W/C) (FIM): 4 Toilet/Commode Transfer(FIM): 4 Shower Transfer(FIM): 4 Additional Short Term Goals: 1-Demonstrate ADL Tasks, 2-Verbalize Understanding , 3-ImproveStrength/Devin 1=Demonstrate adherence to instructed precautions during ADL tasks. 2=Patient will verbalize/demonstrate understanding of assistive devices/ modifications for ADL. 3=Patient will improve strength/tolerance for activity to enable patient to perform ADL's. OT Penitentiary Goals Penitentiary Goals Time Frame: May 22, 2016 Eating (FIM): 6 Eating (QC): 6 Groomin Oral Hygiene (QC): 6 Bathing(FIM): 5 Shower/Bathe Self (QC): 5 Upper Body Dressing(FIM): 6 Upper Body Dressing (QC): 6 Lower Body Dressing(FIM): 6 Lower Body Dressing (QC): 6 On/Off Footwear (QC): 6 Toileting(FIM): 6 Toileting Hygiene (QC): 6 Transfers (B,C,W/C) (FIM): 5 Toilet/Commode Transfer(FIM): 6 Toilet/Commode Transfer (QC): 6 Shower Transfer(FIM): 5 Additional Goals: 1-Demonstrate ADL Tasks, 2-Verbalize Understanding, 3- ImproveStrength/Devin 1=Demonstrate adherence to instructed precautions during ADL tasks. 2=Patient will verbalize/demonstrate understanding of assistive devices/ modifications for ADL. 3=Patient will improve strength/tolerance for activity to enable patient to perform ADL's. OT Education/Plan Problem List/Assessment Assessment: Decreased Activ Tolerance, Decreased UE Strength, Impaired Coordination, Impaired Funct Balance, Impaired I ADL's, Impaired Self-Care Skills, Restricted Funct UE ROM Discharge Recommendations Plan/Recommendations: Continue POC Therapy D/C Recommendations: Home w/ Family Support, Occupational Therapy Home Care Equpiment Recommendations-D/C: Extended Bath Bench Treatment Plan/Plan of Care Treatment,Training & Education: Yes Patient would benefit from OT for education, treatment and training to promote independence in ADL's, mobility, safety and/or upper extremity function for ADL' s. Plan of Care: ADL Retraining, Caregiver Training, Functional Mobility, Group Exercise/Act as Ind, UE Funct Exercise/Act Treatment Duration: May 22, 2016 Visits Per Week: 10-12 Minutes/Day (M-F): 60-90 Minutes/Day (Sat/Chan): PRN Agreement: Yes Rehab Potential: Good Time/GCodes Start Time: 10:15 Stop Time: 11:15 Total Time Billed (hr/min): 60 Billed Treatment Time 1, ADL x 45minutes, Ex x 15minutes KAVITA ORTEGA OT May 12, 2016 13:45
--- NOTE | 2016-05-12 13:52 | Occupational Ther Daily Note ---
OT Current Status-Daily Note Subjective No pain reported. Appearance Pt. in bed. Agrees to treatment. Mental Status/Objective Patient Orientation: Person, Place, Time, Situation Functional [place] Measure 0=Not Assessed/NA 4=Minimal Assistance 1=Total Assistance 5=Supervision or Setup 2=Maximal Assistance 6=Modified [place] 3=Moderate Assistance 7=Complete [place] ADL-Treatment Functional [place] Measure 0=Not Assessed/NA 4=Minimal Assistance 1=Total Assistance 5=Supervision or Setup 2=Maximal Assistance 6=Modified [place] 3=Moderate Assistance 7=Complete IndependenceIRFPAI Quality Coding Scale 6 Independent with activity with or without an assistive device 5 Patient requires set up or clean up by helper. Patient completes activity by themselves 4 Supervision or touching assist (CGA). [place] provide cues , steadying assist 3 The helper provides less than half the effort to complete the activity 2 The helper provides more than half the effort to complete the activity 1 Dependent. The helper does all the effort to complete an activity 7 Patient refused to complete or attempt activity 9 The patient did not perform the activity before the current illness or injury 88 Not attempted due to Medical conditions or safety concerns Transfers (B, C, W/C) (FIM): 5 (Pt. is able to transfer with SBA using single point cane for all transfers. ) Other Treatment Pt. is able to stand out of bed, and ambulate to dining area with SBA using cane. Tolerated e-stim to right UE for MP flexion, wrist flexion, and wrist extension. Pt. tolerated 3 1/2 sameera-amps x 8 minutes to MP flexors, 8 sameera- amps x 7 minutes for wrist extension, and 6 sameera-amps x 7 minutes for wrist flexion. Pt. is educated on purpose of this treatment, and states that it "feels good to see them move." Ambulated back to room after this. All needs met. Education OT Patient Education: Exercise program, Progress toward Goal/Update tx plan, Purpose of tx/functional activities, Reviewed precautions, Rehab process, Transfer techniques Teaching Recipient: Patient Teaching Methods: Demonstration, Discussion Response to Teaching: Verbalize Understanding, Return Demonstration OT Short Term Goals Short Term Goals Time Frame: May 08, 2016 Eating(FIM): 6 Grooming(FIM): 5 Bathing(FIM): 5 Transfers (B,C,W/C) (FIM): 4 Toilet/Commode Transfer(FIM): 4 Shower Transfer(FIM): 4 Additional Short Term Goals: 1-Demonstrate ADL Tasks, 2-Verbalize Understanding , 3-ImproveStrength/Devin 1=Demonstrate adherence to instructed precautions during ADL tasks. 2=Patient will verbalize/demonstrate understanding of assistive devices/ modifications for ADL. 3=Patient will improve strength/tolerance for activity to enable patient to perform ADL's. OT Long-Term Goals Passenger Relations Representative Goals Time Frame: May 22, 2016 Eating (FIM): 6 Eating (QC): 6 Groomin Oral Hygiene (QC): 6 Bathing(FIM): 5 Shower/Bathe Self (QC): 5 Upper Body Dressing(FIM): 6 Upper Body Dressing (QC): 6 Lower Body Dressing(FIM): 6 Lower Body Dressing (QC): 6 On/Off Footwear (QC): 6 Toileting(FIM): 6 Toileting Hygiene (QC): 6 Transfers (B,C,W/C) (FIM): 5 Toilet/Commode Transfer(FIM): 6 Toilet/Commode Transfer (QC): 6 Shower Transfer(FIM): 5 Additional Goals: 1-Demonstrate ADL Tasks, 2-Verbalize Understanding, 3- ImproveStrength/Devin 1=Demonstrate adherence to instructed precautions during ADL tasks. 2=Patient will verbalize/demonstrate understanding of assistive devices/ modifications for ADL. 3=Patient will improve strength/tolerance for activity to enable patient to perform ADL's. OT Education/Plan Problem List/Assessment Assessment: Decreased Activ Tolerance, Decreased UE Strength, Impaired Bed Mobility, Impaired Coordination, Impaired Funct Balance, Impaired I ADL's, Impaired Self-Care Skills Discharge Recommendations Plan/Recommendations: Continue POC Therapy D/C Recommendations: Home w/ Family Support, Occupational Therapy Home Care Equpiment Recommendations-D/C: Extended Bath Bench, Hip Kit Treatment Plan/Plan of Care Treatment,Training & Education: Yes Patient would benefit from OT for education, treatment and training to promote independence in ADL's, mobility, safety and/or upper extremity function for ADL' s. Plan of Care: ADL Retraining, Caregiver Training, Functional Mobility, Group Exercise/Act as Ind, UE Funct Exercise/Act Treatment Duration: May 22, 2016 Visits Per Week: 10-12 Minutes/Day (M-F): 60-90 Minutes/Day (Sat/Chan): PRN Agreement: Yes Rehab Potential: Good Time/GCodes Start Time: 13:00 Stop Time: 13:30 Total Time Billed (hr/min): 30 Billed Treatment Time 1, NM x 30minutes KAVITA ORTEGA OT May 12, 2016 13:52
--- NOTE | 2016-05-12 14:34 | Physical Therapy Daily Note ---
PT Daily Note-Current Subjective Pt. states he feels like he is making regular progress and feels a little stronger every day but wonders if he will ever get a hold on all the spasms Pain Numeric Pain Scale: 0-No Pain Mental Status Patient Orientation: Normal For Age Attachments: Other-See Comments (AFO) Transfers Functional [place] Measure 0=Not Assessed/NA 4=Minimal Assistance 1=Total Assistance 5=Supervision or Setup 2=Maximal Assistance 6=Modified [place] 3=Moderate Assistance 7=Complete IndependenceIRFPAI Quality Coding Scale 6 Independent with activity with or without an assistive device 5 Patient requires set up or clean up by helper. Patient completes activity by themselves 4 Supervision or touching assist (CGA). [place] provide cues , steadying assist 3 The helper provides less than half the effort to complete the activity 2 The helper provides more than half the effort to complete the activity 1 Dependent. The helper does all the effort to complete an activity 7 Patient refused to complete or attempt activity 9 The patient did not perform the activity before the current illness or injury 88 Not attempted due to Medical conditions or safety concerns SBA Gait Training Gait Assistive Device: Cane Single Point 400ft, side steps, retro and 360 degree turns as well as retrieving object from floor (bending over to pick it up) with SBA only all CGA to SBA Balance Picking up an Object (QC): 5 Exercises Supine Ex: Ankle pumps (RLE HC stretch 4x20s ea) Assessment Current Status: Good Progress in bed after Rx PT Short Term Goals Short Term Goals Time Frame: May 08, 2016 Transfers (B,C,W/C) (FIM): 4 Gait (FIM): 4 PT Shelter Goals Shelter Goals PT Consulting Technical Manager Goals Time Frame: May 22, 2016 Transfers (B,C,W/C) (FIM): 6 Sit to Lying (QC): 6 Lying-Sitting on Side/Bed(QC): 6 Sit to Stand (QC): 6 Rollin Roll Left to Right (QC): 6 Chair/Rta-pm-Xeqyq Xfer(QC): 6 Car Transfer (QC): 6 Does the Patient Walk: Yes Gait (FIM): 6 Gait distance (FIM): 3=150 ft Walk 10 feet (QC): 6 Walk 10ft-Uneven Surface(QC): 6 Walk 50ft with 2 Turns (QC): 6 Walk 150 ft (QC): 6 Gait Level of Assist: 6 Gait Assistive Device: Walker Platform (or cand) Does the Pt use WC or Scooter?: No Stairs (FIM): 6 # of Steps: 12 1 Step (curb) (QC): 6 4 Steps (QC): 6 12 Steps (QC): 6 Picking up an Object (QC): 5 PT Plan Treatment/Plan Treatment Plan: Continue Plan of Care Treatment Plan: Bed Mobility, Education, Functional Activity Devin, Functional Strength, Group Therapy, Gait, Safety, Therapeutic Exercise, Transfers Treatment Duration: May 22, 2016 Visits Per Week: 10-15 Minutes/Day (M-F): 60-90 Minutes/Day (Sat/Chan): prn Safety Risks/Education Patient Education: Gait Training, Transfer Techniques, Correct Positioning, Safety Issues Teaching Recipient: Patient Teaching Methods: Demonstration, Discussion Response to Teaching: Verbalize Understanding, Return Demonstration, Reinforcement Needed Time/GCodes Time In: 1400 Time Out: 1425 Total Billed Treatment Time: 25 Total Billed Treatment 1,GT15,EX10 G Codes Necessary: No ELIZABETH VILLA FOREST FIRE FIGHTERS DISPATCHER May 12, 2016 14:33
[2016-05-12] MEDS: BACITRACIN OINTMENT 28 GM TUBE TOP SCH (15:14)
[2016-05-12 17:27] VITALS: BP 108/68
[2016-05-13] MEDS: BACLOFEN 10 MG (LIORESAL) TAB PO PRN ×2 (04:27→14:08)
[2016-05-13] MEDS: oxyCODONE/APAP 7.5-325 MG (PERCOCET 7.5) TABLET PO PRN ×3 (04:27→20:26)
[2016-05-13 05:21] VITALS: BP 113/68
[2016-05-13] MEDS: SENNA W/DOCUSATE (SENOKOT S) TABLET PO SCH ×2 (07:57→20:25)
[2016-05-13] MEDS: GABAPENTIN 300 MG (NEURONTIN) CAP PO SCH ×3 (07:57→20:25)
[2016-05-13] MEDS: DOCUSATE SODIUM 100 MG (COLACE) CAP PO SCH ×2 (07:57→20:25)
--- NOTE | 2016-05-13 08:00 | Progress Note (SOAP) ---
Subjective Subjective/Events-last exam cervical spine fracture. Patient has no complaints patient feels he is improving Objective Exam Vital Signs Date Time Temp Pulse Resp B/P (MAP) Pulse Ox O2 Delivery O2 Flow Rate FiO2 05/13/16 05:21 97.5 71 16 113/68 96 Room Air 05/12/16 17:27 97.0 62 16 108/68 98 Room Air 05/12/16 09:15 Room Air I & O 05/13/16 07:00 Intake Total 1420 ml Balance 1420 ml Capillary Refill : General Appearance: No Apparent Distress, Thin HEENT: Other (Cervical collar) Respiratory: Chest Non Tender, Normal Breath Sounds, No Accessory Muscle Use, No Respiratory Distress Cardiovascular: Regular Rate, Rhythm, No Murmur Assessment/Plan Assessment/Plan Assess & Plan/Chief Complaint cervical fracture. Ambulatory dysfunction. t history of alcoholism. History of tobaccoism. . 05/02/16. Cervical fracture. Ambulatory dysfunction. History of alcoholism. History of tobaccoism. Patient still constipated. . 05/05/16. Cervical fracture. Ambulatory dysfunction. History of alcoholism. History of tobaccoism. Patient getting around is 1 assist with walker. Patient not stable in his feet yet. . 05/06/16. Cervical fracture. Ambulatory dysfunction. Muscle spasms. Patient doing better and improving. Patient using a quad cane. . 05/07/16. Cervical fracture . Ambulatory dysfunction. Patient doing better and improving. Patient using a regular cane. Patient a work in progress. . 05/08/16. Cervical fracture. Ambulatory dysfunction. Spasm of back. Patient working hard. Patient improving. Patient using a regular cane. . 05/09/16. Cervical fracture. Ambulatory dysfunction. A spasm of lower back. Lumbar x-ray the same from previous her Patient working hard. . . Cervical fraction. Ambulatory dysfunction. Patient improving. Patient did have bowel movement the other day. . 05/13/16 Cervical fracture. Ambulatory dysfunction. Patient improving. Patient voices no complaints today Clinical Quality Measures DVT/VTE Risk/Contraindication: Risk Factor Score Per Nursin RFS Level Per Nursing on Admit: 4+=Very High BURT GARZA DO May 13, 2016 08:00
[2016-05-13] MEDS: CYCLOBENZAPRINE 10 MG (FLEXERIL) TAB PO PRN ×2 (10:23→20:25)
--- NOTE | 2016-05-13 11:00 | Occupational Ther Daily Note ---
OT Current Status-Daily Note Subjective Pt. does not report pain number, but does state that he is having an increase in muscle spasms. Notified nursing. They provided muscle relaxer to him. Appearance Pt. is in bed. Agrees to treatment. Mental Status/Objective Patient Orientation: Person, Place, Time, Situation Functional [place] Measure 0=Not Assessed/NA 4=Minimal Assistance 1=Total Assistance 5=Supervision or Setup 2=Maximal Assistance 6=Modified [place] 3=Moderate Assistance 7=Complete [place] ADL-Treatment Functional [place] Measure 0=Not Assessed/NA 4=Minimal Assistance 1=Total Assistance 5=Supervision or Setup 2=Maximal Assistance 6=Modified [place] 3=Moderate Assistance 7=Complete IndependenceIRFPAI Quality Coding Scale 6 Independent with activity with or without an assistive device 5 Patient requires set up or clean up by helper. Patient completes activity by themselves 4 Supervision or touching assist (CGA). [place] provide cues , steadying assist 3 The helper provides less than half the effort to complete the activity 2 The helper provides more than half the effort to complete the activity 1 Dependent. The helper does all the effort to complete an activity 7 Patient refused to complete or attempt activity 9 The patient did not perform the activity before the current illness or injury 88 Not attempted due to Medical conditions or safety concerns Lower Body Dressing (FIM): 4 (OT puts elastic laces in shoes. Pt. is able to don left shoe, and right AFO. 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 Pt. attempts to use shoe spoon, but still has difficulty. ) Other Treatment Pt. declines showering this date. OT provides elastic laces to shoes. Work on LE dressing with shoes and AFO. Please see above. Pt. then ambulates to therapy gym with SBA using cane. Completes armbike x 15 minutes with bilateral UE. At times, reports that his right shoulder is stiff, and will take his right hand off of armbike. Uses left hand only at these times. OT provided gentle stretch to right shoulder after armbike. Pt. is actively able to flex right shoulder to approximately 80 degrees. Noted scapular glide with movement and facilitation. Completed 9minutes on e-stim to MP flexion at 4 sameera-amps. Tolerated this well with good movement noted. OT then facilitated right finger pinch with large pegs. Pt. able to pear picker several with tip pinch, but unable to accurately facilitate lateral pinch. All needs met after treatment. Education OT Patient Education: Correct positioning, Exercise program, Modified ADL techniques, Progress toward Goal/Update tx plan, Purpose of tx/functional activities, Reviewed precautions, Rehab process, Transfer techniques, Use of adapted equipment Teaching Recipient: Patient Teaching Methods: Demonstration, Discussion Response to Teaching: Verbalize Understanding, Return Demonstration OT Short Term Goals Short Term Goals Time Frame: May 08, 2016 Eating(FIM): 6 Grooming(FIM): 5 Bathing(FIM): 5 Transfers (B,C,W/C) (FIM): 4 Toilet/Commode Transfer(FIM): 4 Shower Transfer(FIM): 4 Additional Short Term Goals: 1-Demonstrate ADL Tasks, 2-Verbalize Understanding , 3-ImproveStrength/Devin 1=Demonstrate adherence to instructed precautions during ADL tasks. 2=Patient will verbalize/demonstrate understanding of assistive devices/ modifications for ADL. 3=Patient will improve strength/tolerance for activity to enable patient to perform ADL's. OT Train Braker Goals Train Braker Goals Time Frame: May 22, 2016 Eating (FIM): 6 Eating (QC): 6 Groomin Oral Hygiene (QC): 6 Bathing(FIM): 5 Shower/Bathe Self (QC): 5 Upper Body Dressing(FIM): 6 Upper Body Dressing (QC): 6 Lower Body Dressing(FIM): 6 Lower Body Dressing (QC): 6 On/Off Footwear (QC): 6 Toileting(FIM): 6 Toileting Hygiene (QC): 6 Transfers (B,C,W/C) (FIM): 5 Toilet/Commode Transfer(FIM): 6 Toilet/Commode Transfer (QC): 6 Shower Transfer(FIM): 5 Additional Goals: 1-Demonstrate ADL Tasks, 2-Verbalize Understanding, 3- ImproveStrength/Devin 1=Demonstrate adherence to instructed precautions during ADL tasks. 2=Patient will verbalize/demonstrate understanding of assistive devices/ modifications for ADL. 3=Patient will improve strength/tolerance for activity to enable patient to perform ADL's. OT Education/Plan Problem List/Assessment Assessment: Decreased Activ Tolerance, Decreased UE Strength, Dependent Transfers, Impaired Coordination, Impaired Funct Balance, Impaired I ADL's, Impaired Self-Care Skills, Restricted Funct UE ROM Discharge Recommendations Plan/Recommendations: Continue POC Therapy D/C Recommendations: Home w/ Family Support, Occupational Therapy Home Care Equpiment Recommendations-D/C: Extended Bath Bench, Hip Kit Treatment Plan/Plan of Care Treatment,Training & Education: Yes Patient would benefit from OT for education, treatment and training to promote independence in ADL's, mobility, safety and/or upper extremity function for ADL' s. Plan of Care: ADL Retraining, Caregiver Training, Functional Mobility, Group Exercise/Act as Ind, UE Funct Exercise/Act Treatment Duration: May 22, 2016 Visits Per Week: 10-12 Minutes/Day (M-F): 60-90 Minutes/Day (Sat/Chan): PRN Agreement: Yes Rehab Potential: Good Time/GCodes Start Time: 09:00 Stop Time: 10:30 Total Time Billed (hr/min): 90 Billed Treatment Time 1, ADL x 30minutes, NM x 15minutes, EX x 45minutes KAVITA ORTEGA OT May 13, 2016 11:00
--- NOTE | 2016-05-13 11:58 | Physical Therapy Daily Note ---
PT Daily Note-Current Subjective Pt. states he is distracted and worried as he has a family member in ICU who is likely passing away. All his family members are there. Wants to go there after Rx. Pain Numeric Pain Scale: 0-No Pain Mental Status Patient Orientation: Normal For Age Attachments: Other-See Comments (AFO right) Transfers Functional [place] Measure 0=Not Assessed/NA 4=Minimal Assistance 1=Total Assistance 5=Supervision or Setup 2=Maximal Assistance 6=Modified [place] 3=Moderate Assistance 7=Complete IndependenceIRFPAI Quality Coding Scale 6 Independent with activity with or without an assistive device 5 Patient requires set up or clean up by helper. Patient completes activity by themselves 4 Supervision or touching assist (CGA). [place] provide cues , steadying assist 3 The helper provides less than half the effort to complete the activity 2 The helper provides more than half the effort to complete the activity 1 Dependent. The helper does all the effort to complete an activity 7 Patient refused to complete or attempt activity 9 The patient did not perform the activity before the current illness or injury 88 Not attempted due to Medical conditions or safety concerns Transfers (B, C, W/C) (FIM): 5 Scootin Rollin Supine to/from Sit: 6 Sit to/from Stand: 6 Bed to/from Chair: 5 Gait Training Does the Patient Walk?: Yes Gait (FIM): 4 Distance (FIM): 3=150 ft (400,200) Gait Level of Assist: 4 Gait Persons Needed: 1 Gait Assistive Device: Cane Single Point pt. instructed several times to slow his gait as he uses momentum to keep RLE swinging . When pt. did slow down to a velocity more suited for home he had near LOB x3 with R foot landing in unintentional directions and required min assist to recover Stair Training Stair Training: Handrails/: 2 handrails Stairs (FIM): 5 #of Steps: 12 Stairs: Pattern: Step to Level of Assist: 5 Exercises Standing: Hip Abduction, Marching, Sit to Stand, Side steps Standing Reps: 12 NuStep Minutes: 12 NuStep Workload: 3 Assessment Current Status: Good Progress PT Short Term Goals Short Term Goals Time Frame: May 08, 2016 Transfers (B,C,W/C) (FIM): 4 Gait (FIM): 4 PT Snf Goals Snf Goals PT Snf Goals Time Frame: May 22, 2016 Transfers (B,C,W/C) (FIM): 6 Sit to Lying (QC): 6 Lying-Sitting on Side/Bed(QC): 6 Sit to Stand (QC): 6 Rollin Roll Left to Right (QC): 6 Chair/Bgd-ox-Prbkz Xfer(QC): 6 Car Transfer (QC): 6 Does the Patient Walk: Yes Gait (FIM): 6 Gait distance (FIM): 3=150 ft Walk 10 feet (QC): 6 Walk 10ft-Uneven Surface(QC): 6 Walk 50ft with 2 Turns (QC): 6 Walk 150 ft (QC): 6 Gait Level of Assist: 6 Gait Assistive Device: Walker Platform (or cand) Does the Pt use WC or Scooter?: No Stairs (FIM): 6 # of Steps: 12 1 Step (curb) (QC): 6 4 Steps (QC): 6 12 Steps (QC): 6 Picking up an Object (QC): 5 PT Plan Treatment/Plan Treatment Plan: Continue Plan of Care Treatment Plan: Bed Mobility, Education, Functional Activity Devin, Functional Strength, Group Therapy, Gait, Safety, Therapeutic Exercise, Transfers Treatment Duration: May 22, 2016 Visits Per Week: 10-15 Minutes/Day (M-F): 60-90 Minutes/Day (Sat/Chan): prn Safety Risks/Education Patient Education: Gait Training, Transfer Techniques, Steps Teaching Recipient: Patient Teaching Methods: Demonstration, Discussion Response to Teaching: Verbalize Understanding, Return Demonstration, Reinforcement Needed (for safe gait ie velocity and balance) Time/GCodes Time In: 1100 Time Out: 1200 Total Billed Treatment Time: 60 Total Billed Treatment 1,FA25m,GT20m,EX15m G Codes Necessary: ELIZABETH Patel TELEGRAPH AND TELETYPE OPERATOR May 13, 2016 11:58
--- NOTE | 2016-05-13 14:40 | Physical Therapy Daily Note ---
PT Daily Note-Current Subjective Pt. spoke at length about his 4 children and "baby Mommas" " all 4 different Mommas". States he is not sure if he will ever be able to drive again as his right foot and leg may not get better Pain Numeric Pain Scale: 0-No Pain Mental Status Patient Orientation: Normal For Age Transfers Functional [place] Measure 0=Not Assessed/NA 4=Minimal Assistance 1=Total Assistance 5=Supervision or Setup 2=Maximal Assistance 6=Modified [place] 3=Moderate Assistance 7=Complete IndependenceIRFPAI Quality Coding Scale 6 Independent with activity with or without an assistive device 5 Patient requires set up or clean up by helper. Patient completes activity by themselves 4 Supervision or touching assist (CGA). [place] provide cues , steadying assist 3 The helper provides less than half the effort to complete the activity 2 The helper provides more than half the effort to complete the activity 1 Dependent. The helper does all the effort to complete an activity 7 Patient refused to complete or attempt activity 9 The patient did not perform the activity before the current illness or injury 88 Not attempted due to Medical conditions or safety concerns all TRFs Mod I Gait Training Gait Assistive Device: Cane Single Point [id number] slow with 100ft no AD at all which made pt slow down and concentrate more on right foot Exercises Supine Ex: Bridging, Ankle pumps (HC stretches), Rolling, Straight leg raise ( HS stretch 3x20s), Hip abd/add (abd stretch 3 x 20s) Assessment Current Status: Good Progress managing better and better every Rx, increased functional mob PT Short Term Goals Short Term Goals Time Frame: May 08, 2016 Transfers (B,C,W/C) (FIM): 4 Gait (FIM): 4 PT Packaging Coordinator Goals Packaging Coordinator Goals PT Long-Term Goals Time Frame: May 22, 2016 Transfers (B,C,W/C) (FIM): 6 Sit to Lying (QC): 6 Lying-Sitting on Side/Bed(QC): 6 Sit to Stand (QC): 6 Rollin Roll Left to Right (QC): 6 Chair/Bbz-tg-Bqbfm Xfer(QC): 6 Car Transfer (QC): 6 Does the Patient Walk: Yes Gait (FIM): 6 Gait distance (FIM): 3=150 ft Walk 10 feet (QC): 6 Walk 10ft-Uneven Surface(QC): 6 Walk 50ft with 2 Turns (QC): 6 Walk 150 ft (QC): 6 Gait Level of Assist: 6 Gait Assistive Device: Walker Platform (or cand) Does the Pt use WC or Scooter?: No Stairs (FIM): 6 # of Steps: 12 1 Step (curb) (QC): 6 4 Steps (QC): 6 12 Steps (QC): 6 Picking up an Object (QC): 5 PT Plan Treatment/Plan Treatment Plan: Continue Plan of Care Treatment Plan: Bed Mobility, Education, Functional Activity Devin, Functional Strength, Group Therapy, Gait, Safety, Therapeutic Exercise, Transfers Treatment Duration: May 22, 2016 Visits Per Week: 10-15 Minutes/Day (M-F): 60-90 Minutes/Day (Sat/Chan): prn Safety Risks/Education Patient Education: Gait Training, Transfer Techniques, Issued Written HEP Teaching Recipient: Patient Teaching Methods: Demonstration, Discussion Response to Teaching: Verbalize Understanding, Return Demonstration Time/GCodes Time In: 1405 Time Out: 1440 Total Billed Treatment Time: 35 Total Billed Treatment 1,EX20,GT15 G Codes Necessary: ELIZABETH Patel SECURITY ESCORT May 13, 2016 14:40
[2016-05-13 18:14] VITALS: BP 120/72
[2016-05-14] MEDS: BACLOFEN 10 MG (LIORESAL) TAB PO PRN (05:02)
[2016-05-14] MEDS: oxyCODONE/APAP 7.5-325 MG (PERCOCET 7.5) TABLET PO PRN ×3 (05:03→17:40)
[2016-05-14 05:34] VITALS: BP 109/70
--- NOTE | 2016-05-14 08:20 | Progress Note (SOAP) ---
Subjective Subjective/Events-last exam cervical spine fracture. Patient is improving. Patient getting around better Objective Exam Vital Signs Date Time Temp Pulse Resp B/P (MAP) Pulse Ox O2 Delivery O2 Flow Rate FiO2 05/14/16 05:34 98.0 68 16 109/70 98 Room Air 05/13/16 18:14 98.5 70 16 120/72 96 Room Air I & O 05/14/16 07:00 Intake Total 690 ml Balance 690 ml Capillary Refill : General Appearance: No Apparent Distress, Thin HEENT: Normal ENT Inspection Cardiovascular: Regular Rate, Rhythm, No Murmur Assessment/Plan Assessment/Plan Assess & Plan/Chief Complaint cervical fracture. Ambulatory dysfunction. t history of alcoholism. History of tobaccoism. . 05/02/16. Cervical fracture. Ambulatory dysfunction. History of alcoholism. History of tobaccoism. Patient still constipated. . 05/05/16. Cervical fracture. Ambulatory dysfunction. History of alcoholism. History of tobaccoism. Patient getting around is 1 assist with walker. Patient not stable in his feet yet. . 05/06/16. Cervical fracture. Ambulatory dysfunction. Muscle spasms. Patient doing better and improving. Patient using a quad cane. . 05/07/16. Cervical fracture . Ambulatory dysfunction. Patient doing better and improving. Patient using a regular cane. Patient a work in progress. . 05/08/16. Cervical fracture. Ambulatory dysfunction. Spasm of back. Patient working hard. Patient improving. Patient using a regular cane. . 05/09/16. Cervical fracture. Ambulatory dysfunction. A spasm of lower back. Lumbar x-ray the same from previous her Patient working hard. . . Cervical fraction. Ambulatory dysfunction. Patient improving. Patient did have bowel movement the other day. . 05/13/16 Cervical fracture. Ambulatory dysfunction. Patient improving. Patient voices no complaints today. . 05/14/16. Cervical fracture. Ambulatory dysfunction. Patient has improved getting around better area Patient voices no complaints today Clinical Quality Measures DVT/VTE Risk/Contraindication: Risk Factor Score Per Nursin RFS Level Per Nursing on Admit: 4+=Very High BURT GARZA DO May 14, 2016 08:20
--- NOTE | 2016-05-14 08:22 | PM & R (SOAP) Progress Note ---
Subjective Subjective/Events-last exam Patient was seen in waters of unit today Progressing wel with therapies Patient difficult to find and see as off unit most of day visiting a relative on another floor Objective Exam Last Set of Vital Signs Vital Signs Date Time Temp Pulse Resp B/P (MAP) Pulse Ox O2 Delivery O2 Flow Rate FiO2 05/14/16 05:34 98.0 68 16 109/70 98 Room Air Capillary Refill : I&O Intake and Output 05/14/16 00:00 Intake Total 850 ml Balance 850 ml Intake Oral 850 ml # Voids 5 General: Alert, Oriented X3, Cooperative, No Acute Distress HEENT: Atraumatic, PERRLA, EOMI, Mucous Memb Moist/[place] Neck: Other (Soft C collar in place) Lungs: Clear to Auscultation Heart: Regular Rate Abdomen: Normal Bowel Sounds, Soft, No Tenderness Extremities: No Edema Neuro: Other (RT sided weakness) Psych/Mental Status: Mental Status NL Assessment/Plan Assessment Traumatic C6 quadriplegia s/p decompressive surgery DR [facility] having return HX of substance abuse Constipation meds to be adjusted Plan Continue PT/OT Appreciate DR Napoles note and orders Check Lumbar spine Xray-done OK Add Flexeril=See orders.-done Team Conference later today See report for full functional update and POC Discharge soon most likely PRINCESS TURNER MD May 14, 2016 08:22
[2016-05-14] MEDS: DOCUSATE SODIUM 100 MG (COLACE) CAP PO SCH ×2 (09:03→20:24)
[2016-05-14] MEDS: GABAPENTIN 300 MG (NEURONTIN) CAP PO SCH ×3 (09:03→20:24)
[2016-05-14] MEDS: SENNA W/DOCUSATE (SENOKOT S) TABLET PO SCH ×2 (09:03→20:24)
--- NOTE | 2016-05-14 09:05 | Physical Therapy Daily Note ---
PT Daily Note-Current Subjective Pt. not on floor for rx even though nursing had instructed him to be back at 8a for PT Rx. Nurse called to another floor to summon pt to return. Pt. enters unit walking, pushing w/c and opened double doors indep to get in unit. This METAL FURNITURE POLISHER spoke with pt. sharing that he is not free to be up ad a[place]andre and needs to be available every time he has a Rx scheduled. Reminded him of 3 hr requirement Pain Numeric Pain Scale: 3 Location: Right Location Body Site: Thigh Pain Description: Pressure Mental Status Patient Orientation: Normal For Age Attachments: Other-See Comments (cervical collar and R foot AFO) Transfers Functional [place] Measure 0=Not Assessed/NA 4=Minimal Assistance 1=Total Assistance 5=Supervision or Setup 2=Maximal Assistance 6=Modified [place] 3=Moderate Assistance 7=Complete IndependenceIRFPAI Quality Coding Scale 6 Independent with activity with or without an assistive device 5 Patient requires set up or clean up by helper. Patient completes activity by themselves 4 Supervision or touching assist (CGA). [place] provide cues , steadying assist 3 The helper provides less than half the effort to complete the activity 2 The helper provides more than half the effort to complete the activity 1 Dependent. The helper does all the effort to complete an activity 7 Patient refused to complete or attempt activity 9 The patient did not perform the activity before the current illness or injury 88 Not attempted due to Medical conditions or safety concerns Transfers (B, C, W/C) (FIM): 6 Scootin Rollin Roll Left to Right (QC): 6 Supine to/from Sit: 6 Sit to/from Stand: 6 Sit to Lying (QC): 6 Sit to Stand (QC): 6 Chair/Sav-jx-Lzpyu Xfer(QC): 6 Bed to/from Chair: 6 attempted floor TRF this date with mod to min assist of one and much time. Pt. had expressed possibility of falling Gait Training Does the Patient Walk?: Yes Gait (FIM): 5 Distance (FIM): 3=150 ft (200x3) Walk 10 feet (QC): 5 Walk 50 ft with 2 Turns(QC): 5 Walk 150 ft (QC): 5 Walking 10ft/uneven surface-QC: 5 Gait Level of Assist: 5 Gait Persons Needed: 1 Gait Assistive Device: Cane Single Point pt. near up ad [place] but would likely go outside unit and not be available for Rx at appropriate times Stair Training Stair Training: Handrails/: 1 handrail Stairs (FIM): 3 #of Steps: 12 1 Step (curb) (QC): 3 Stairs: Pattern: Step to Level of Assist: 3 pt. tried to simulate situation at home with left hand used on one rail etc. this was a little complicated by bringing SPC with him Balance Picking up an Object (QC): 5 Exercises Supine Ex: Bridging, Ankle pumps (HC stretches), Quad Set, Rolling, Glut sets, Heel Slides, Short Arc Quads, Scooting, Straight leg raise, Hip abd/add Supine Reps: 12 Assessment Current Status: Good Progress discussion with pt. reveals he may or may not have some assist at home from son or GF. Pt. also unclear , he possibly faces criminal charges if DCd from hospital. PT Short Term Goals Short Term Goals Time Frame: May 08, 2016 Transfers (B,C,W/C) (FIM): 4 Gait (FIM): 4 PT Hospice Admitting Clerk Goals Senior Care Goals PT Hospice Admitting Clerk Goals Time Frame: May 22, 2016 Transfers (B,C,W/C) (FIM): 6 Sit to Lying (QC): 6 Lying-Sitting on Side/Bed(QC): 6 Sit to Stand (QC): 6 Rollin Roll Left to Right (QC): 6 Chair/Bai-dr-Aegno Xfer(QC): 6 Car Transfer (QC): 6 Does the Patient Walk: Yes Gait (FIM): 6 Gait distance (FIM): 3=150 ft Walk 10 feet (QC): 6 Walk 10ft-Uneven Surface(QC): 6 Walk 50ft with 2 Turns (QC): 6 Walk 150 ft (QC): 6 Gait Level of Assist: 6 Gait Assistive Device: Walker Platform (or cand) Does the Pt use WC or Scooter?: No Stairs (FIM): 6 # of Steps: 12 1 Step (curb) (QC): 6 4 Steps (QC): 6 12 Steps (QC): 6 Picking up an Object (QC): 5 PT Plan Treatment/Plan Treatment Plan: Continue Plan of Care Treatment Plan: Bed Mobility, Education, Functional Activity Devin, Functional Strength, Group Therapy, Gait, Safety, Therapeutic Exercise, Transfers Treatment Duration: May 22, 2016 Visits Per Week: 10-15 Minutes/Day (M-F): 60-90 Minutes/Day (Sat/Chan): prn Safety Risks/Education Patient Education: Gait Training, Transfer Techniques, Steps, Correct Positioning, Safety Issues Teaching Recipient: Patient Teaching Methods: Demonstration, Discussion Response to Teaching: Verbalize Understanding, Return Demonstration, Reinforcement Needed Time/GCodes Time In: 800 Time Out: 900 Total Billed Treatment Time: 60 Total Billed Treatment 1,FA30m,GT15m,EX15m G Codes Necessary: ELIZABETH Patel MET[employer] F[employer]ITURE POLISHER May 14, 2016 09:05
--- NOTE | 2016-05-14 10:46 | Occupational Ther Daily Note ---
OT Current Status-Daily Note Subjective Pt. states that he is not having pain, but that he is "really tired." OT asks him if he is up at night. States "yes." OT encourages him to stay off his phone, and turn TV off at night, as it is is suspected that pt. does this. Appearance Pt. more somber today. Not very verbal. Requires cues to engage in conversation. Agrees to OT treatment. Mental Status/Objective Patient Orientation: Person, Place Functional [place] Measure 0=Not Assessed/NA 4=Minimal Assistance 1=Total Assistance 5=Supervision or Setup 2=Maximal Assistance 6=Modified [place] 3=Moderate Assistance 7=Complete [place] ADL-Treatment Functional [place] Measure 0=Not Assessed/NA 4=Minimal Assistance 1=Total Assistance 5=Supervision or Setup 2=Maximal Assistance 6=Modified [place] 3=Moderate Assistance 7=Complete IndependenceIRFPAI Quality Coding Scale 6 Independent with activity with or without an assistive device 5 Patient requires set up or clean up by helper. Patient completes activity by themselves 4 Supervision or touching assist (CGA). [place] provide cues , steadying assist 3 The helper provides less than half the effort to complete the activity 2 The helper provides more than half the effort to complete the activity 1 Dependent. The helper does all the effort to complete an activity 7 Patient refused to complete or attempt activity 9 The patient did not perform the activity before the current illness or injury 88 Not attempted due to Medical conditions or safety concerns Transfers (B, C, W/C) (FIM): 5 (Pt. is able to ambulate with AFO on right foot and with use of single point cane, with SBA.) Pt. agrees to ambulate to therapy gym. Ambulates with SBA. Tolerates 8 minutes of electrical stimulation at 4 sameera-amps to right hand for flexion of MP joints. Tolerated this well. Pt. participates in series of fine motor tasks , in which pt. is asked to grasp wooden pegs with pinch technical sales consultant. Pt. has great difficulty with this, and states that he feels "more weak" today. Pt. educated in tenodesis motion, in which facilitating wrist extension will assist with finger closure. Pt. is able to grasp peg with weak grasp. Worked on grasping tray checker pieces off the table with emphasis to use lateral pinch, in which thumb is on top. Able to do this with great effort needed. Attempted to have him slide out top card off deck of cards, but was unable to do this. Pt indicates that his AFO feels "too loose" on his foot. OT tightened shoe laces and pt. states that this feels better. Ambulated to room. All needs met. Education OT Patient Education: Exercise program, Modified ADL techniques, Progress toward Goal/Update tx plan, Purpose of tx/functional activities, Reviewed precautions, Rehab process, Transfer techniques Teaching Recipient: Patient Teaching Methods: Demonstration, Discussion Response to Teaching: Verbalize Understanding, Return Demonstration OT Short Term Goals Short Term Goals Time Frame: May 08, 2016 Eating(FIM): 6 Grooming(FIM): 5 Bathing(FIM): 5 Transfers (B,C,W/C) (FIM): 4 Toilet/Commode Transfer(FIM): 4 Shower Transfer(FIM): 4 Additional Short Term Goals: 1-Demonstrate ADL Tasks, 2-Verbalize Understanding , 3-ImproveStrength/Devin 1=Demonstrate adherence to instructed precautions during ADL tasks. 2=Patient will verbalize/demonstrate understanding of assistive devices/ modifications for ADL. 3=Patient will improve strength/tolerance for activity to enable patient to perform ADL's. OT Automatic Trimming Sewer Goals Retirement Goals Time Frame: May 22, 2016 Eating (FIM): 6 Eating (QC): 6 Groomin Oral Hygiene (QC): 6 Bathing(FIM): 5 Shower/Bathe Self (QC): 5 Upper Body Dressing(FIM): 6 Upper Body Dressing (QC): 6 Lower Body Dressing(FIM): 6 Lower Body Dressing (QC): 6 On/Off Footwear (QC): 6 Toileting(FIM): 6 Toileting Hygiene (QC): 6 Transfers (B,C,W/C) (FIM): 5 Toilet/Commode Transfer(FIM): 6 Toilet/Commode Transfer (QC): 6 Shower Transfer(FIM): 5 Additional Goals: 1-Demonstrate ADL Tasks, 2-Verbalize Understanding, 3- ImproveStrength/Devin 1=Demonstrate adherence to instructed precautions during ADL tasks. 2=Patient will verbalize/demonstrate understanding of assistive devices/ modifications for ADL. 3=Patient will improve strength/tolerance for activity to enable patient to perform ADL's. OT Education/Plan Problem List/Assessment Assessment: Decreased Activ Tolerance, Decreased UE Strength, Impaired I ADL's , Impaired Self-Care Skills, Restricted Funct UE ROM Discharge Recommendations Plan/Recommendations: Continue POC Therapy D/C Recommendations: Home w/ Family Support, Occupational Therapy Home Care Equpiment Recommendations-D/C: Extended Bath Bench, Hip Kit Target Placement Pt. plans to stay with his significant other [place] Treatment Plan/Plan of Care Treatment,Training & Education: Yes Patient would benefit from OT for education, treatment and training to promote independence in ADL's, mobility, safety and/or upper extremity function for ADL' s. Plan of Care: ADL Retraining, Caregiver Training, Functional Mobility, Group Exercise/Act as Ind, UE Funct Exercise/Act Treatment Duration: May 22, 2016 Visits Per Week: 10-12 Minutes/Day (M-F): 60-90 Minutes/Day (Sat/Chan): PRN Agreement: Yes Rehab Potential: Good Time/GCodes Start Time: 09:30 Stop Time: 10:30 Total Time Billed (hr/min): 60 Billed Treatment Time 1, NM x 15minutes, EX x 30minutes, FA x 15minutes KAVITA ORTEGA OT May 14, 2016 10:46
--- NOTE | 2016-05-14 14:43 | Therapy Group Daily Note ---
Therapy Daily Group Note Patient Education Topic Home Safety, Other List Below (Rehab process, discharge planning, emergency planning) Exercises LE Seated Exercise, UE Exercise Other/Notes Pt ambulated with SBA using cane to OT/PT group. Group consisted of introductions (name, place living, natural disasters), socialization, UE/LE seated exercises, discharge planning, rehab process, ARU expectations and emergency planning. Pt was able to answer questions appropriately and contribute to conversations. Pt complete UE/LE seated exercises without difficulty. Pt appeared fatigued throughout group and dozed off, but woke easily. After group, pt's son brought a w/c and pt went up to ICU to visit family member. All needs met in room. Start Time: 13:00 Stop Time: 14:15 Total Billed Treatment Time: 75 Total Billed Treatment 1-GRP DEACON CARPENTER May 14, 2016 14:43
[2016-05-14 18:26] VITALS: BP 126/77
[2016-05-15] MEDS: BACLOFEN 10 MG (LIORESAL) TAB PO PRN ×2 (03:24→20:28)
[2016-05-15] MEDS: oxyCODONE/APAP 7.5-325 MG (PERCOCET 7.5) TABLET PO PRN ×4 (03:24→20:28)
[2016-05-15 05:06] VITALS: BP 101/67
--- NOTE | 2016-05-15 08:26 | PM & R (SOAP) Progress Note ---
Subjective Subjective/Events-last exam Patient was seen in his room this AM Current meds reviewed Discussed case with SW and Team yesterday Discharge set tentatively for 05/17/16 to home with family.Medicaid car pending Hospital to provide ST cane for patient DR Espinoza has okd staple removal done Patient Modified Independent for transfers Cant dorsiflex rt ankle but can SLR on rt AFO on rt being used Objective Exam Last Set of Vital Signs Vital Signs Date Time Temp Pulse Resp B/P (MAP) Pulse Ox O2 Delivery O2 Flow Rate FiO2 05/15/16 05:06 97.2 86 18 101/67 94 Room Air Capillary Refill : I&O Intake and Output 05/15/16 00:00 Intake Total 1340 ml Balance 1340 ml Intake Oral 1340 ml # Voids 8 General: Alert, Oriented X3, Cooperative, No Acute Distress HEENT: Atraumatic, PERRLA, EOMI, Mucous Memb Moist/[place] Neck: Other (Soft C collar in place) Lungs: Clear to Auscultation Heart: Regular Rate Abdomen: Normal Bowel Sounds, Soft, No Tenderness Extremities: No Edema Neuro: Other ( as per above rt LE) Psych/Mental Status: Mental Status NL Assessment/Plan Assessment Traumatic C6 quadriplegia s/p decompressive surgery DR Bennett [facility] having fairly good return HX of substance abuse Constipation meds to be adjusted-done improved Pain management Plan Continue PT/OT Appreciate DR Napoles note and orders Check Lumbar spine Xray-done OK Add Flexeril=See orders.-done Team Conference held yesterday- See report for full functional update and POC Discharge set tentatively for Thursday05/17/16 as per above PRINCESS TURNER MD May 15, 2016 08:26
[2016-05-15] MEDS: SENNA W/DOCUSATE (SENOKOT S) TABLET PO SCH ×2 (08:58→20:28)
[2016-05-15] MEDS: GABAPENTIN 300 MG (NEURONTIN) CAP PO SCH ×3 (08:58→20:28)
[2016-05-15] MEDS: DOCUSATE SODIUM 100 MG (COLACE) CAP PO SCH ×2 (08:58→20:28)
--- NOTE | 2016-05-15 09:07 | Physical Therapy Daily Note ---
PT Daily Note-Current Subjective States he is feeling ok, doesnt think his bowels have moved for several days. Agrees to Rx. Pain Numeric Pain Scale: 0-No Pain Mental Status Patient Orientation: Normal For Age Attachments: Other-See Comments (AFO left foot) Transfers Functional [place] Measure 0=Not Assessed/NA 4=Minimal Assistance 1=Total Assistance 5=Supervision or Setup 2=Maximal Assistance 6=Modified [place] 3=Moderate Assistance 7=Complete IndependenceIRFPAI Quality Coding Scale 6 Independent with activity with or without an assistive device 5 Patient requires set up or clean up by helper. Patient completes activity by themselves 4 Supervision or touching assist (CGA). [place] provide cues , steadying assist 3 The helper provides less than half the effort to complete the activity 2 The helper provides more than half the effort to complete the activity 1 Dependent. The helper does all the effort to complete an activity 7 Patient refused to complete or attempt activity 9 The patient did not perform the activity before the current illness or injury 88 Not attempted due to Medical conditions or safety concerns Transfers (B, C, W/C) (FIM): 6 Scootin Rollin Supine to/from Sit: 6 Sit to/from Stand: 6 Bed to/from Chair: 5 Gait Training Does the Patient Walk?: Yes Gait (FIM): 5 Distance (FIM): 3=150 ft (400x2) Gait Level of Assist: 5 Gait Persons Needed: 1 Gait Assistive Device: Cane Single Point gait with and without SPC, slower better control Stair Training Stair Training: Handrails/: 1 handrail Stairs (FIM): 5 #of Steps: 12 Stairs: Pattern: Step to Level of Assist: 5 pt. was able to manage holding on to SPC in right hand and up down steps using left hand on rail Balance Picking up an Object (QC): 5 Exercises Supine Ex: Bridging, Quad Set, Rolling, Glut sets, Heel Slides, Short Arc Quads , Scooting, Straight leg raise, Hip abd/add Supine Reps: 15 (assist for some) Standing: Retro gait, Sit to Stand, Side steps, Stepping over objects Standing Reps: 10 NuStep Minutes: 10 NuStep Workload: 3 Assessment Current Status: Good Progress PT Short Term Goals Short Term Goals Time Frame: May 08, 2016 Transfers (B,C,W/C) (FIM): 4 Gait (FIM): 4 PT Carbider Goals Carbider Goals PT Carbider Goals Time Frame: May 22, 2016 Transfers (B,C,W/C) (FIM): 6 Sit to Lying (QC): 6 Lying-Sitting on Side/Bed(QC): 6 Sit to Stand (QC): 6 Rollin Roll Left to Right (QC): 6 Chair/Ndo-nr-Ienmi Xfer(QC): 6 Car Transfer (QC): 6 Does the Patient Walk: Yes Gait (FIM): 6 Gait distance (FIM): 3=150 ft Walk 10 feet (QC): 6 Walk 10ft-Uneven Surface(QC): 6 Walk 50ft with 2 Turns (QC): 6 Walk 150 ft (QC): 6 Gait Level of Assist: 6 Gait Assistive Device: Walker Platform (or cand) Does the Pt use WC or Scooter?: No Stairs (FIM): 6 # of Steps: 12 1 Step (curb) (QC): 6 4 Steps (QC): 6 12 Steps (QC): 6 Picking up an Object (QC): 5 PT Plan Treatment/Plan Treatment Plan: Continue Plan of Care Treatment Plan: Bed Mobility, Education, Functional Activity Devin, Functional Strength, Group Therapy, Gait, Safety, Therapeutic Exercise, Transfers Treatment Duration: May 22, 2016 Visits Per Week: 10-15 Minutes/Day (M-F): 60-90 Minutes/Day (Sat/Chan): prn Safety Risks/Education Patient Education: Gait Training, Transfer Techniques, Steps, Correct Positioning, Safety Issues Teaching Recipient: Patient Teaching Methods: Demonstration, Discussion Response to Teaching: Verbalize Understanding, Return Demonstration, Reinforcement Needed Time/GCodes Time In: 800 Time Out: 900 Total Billed Treatment Time: 60 Total Billed Treatment 1,NM15m,EX30m,GT15m G Codes Necessary: ELIZABETH Patel WATCH ASSEMBLY INSPECTOR May 15, 2016 09:07
[2016-05-15] MEDS ORDERED: BACL10TA PO (09:15)
[2016-05-15] MEDS ORDERED: SENN-20 PO (09:15)
[2016-05-15] MEDS ORDERED: OXYC-464 PO (09:15)
[2016-05-15] MEDS ORDERED: GABA-488 PO (09:15)
--- NOTE | 2016-05-15 15:05 | Physical Therapy Daily Note ---
PT Daily Note-Current Subjective Pt. somber and quiet, perhaps even some tears. states he is ok but has neck pain and so he switched from soft to rigid collar thinking it might help stabililze his neck. Requested pain meds after Rx. Pain Numeric Pain Scale: 4 Location: Medial Location Body Site: Neck Pain Description: Dull Mental Status Patient Orientation: Normal For Age Attachments: Other-See Comments (AFO neck collar) Transfers Functional [place] Measure 0=Not Assessed/NA 4=Minimal Assistance 1=Total Assistance 5=Supervision or Setup 2=Maximal Assistance 6=Modified [place] 3=Moderate Assistance 7=Complete IndependenceIRFPAI Quality Coding Scale 6 Independent with activity with or without an assistive device 5 Patient requires set up or clean up by helper. Patient completes activity by themselves 4 Supervision or touching assist (CGA). [place] provide cues , steadying assist 3 The helper provides less than half the effort to complete the activity 2 The helper provides more than half the effort to complete the activity 1 Dependent. The helper does all the effort to complete an activity 7 Patient refused to complete or attempt activity 9 The patient did not perform the activity before the current illness or injury 88 Not attempted due to Medical conditions or safety concerns All TRFs Mod I Gait Training Gait Assistive Device: None 200ft slow, no LOB Balance Special Test Comments CABRALES completed at 44/56. balance better than expected Assessment Current Status: Good Progress PT Short Term Goals Short Term Goals Time Frame: May 08, 2016 Transfers (B,C,W/C) (FIM): 4 Gait (FIM): 4 PT Senior Living Goals Test Consultant Goals PT Senior Living Goals Time Frame: May 22, 2016 Transfers (B,C,W/C) (FIM): 6 Sit to Lying (QC): 6 Lying-Sitting on Side/Bed(QC): 6 Sit to Stand (QC): 6 Rollin Roll Left to Right (QC): 6 Chair/Tvj-fw-Cppvn Xfer(QC): 6 Car Transfer (QC): 6 Does the Patient Walk: Yes Gait (FIM): 6 Gait distance (FIM): 3=150 ft Walk 10 feet (QC): 6 Walk 10ft-Uneven Surface(QC): 6 Walk 50ft with 2 Turns (QC): 6 Walk 150 ft (QC): 6 Gait Level of Assist: 6 Gait Assistive Device: Walker Platform (or cand) Does the Pt use WC or Scooter?: No Stairs (FIM): 6 # of Steps: 12 1 Step (curb) (QC): 6 4 Steps (QC): 6 12 Steps (QC): 6 Picking up an Object (QC): 5 PT Plan Treatment/Plan Treatment Plan: Continue Plan of Care Treatment Plan: Bed Mobility, Education, Functional Activity Devin, Functional Strength, Group Therapy, Gait, Safety, Therapeutic Exercise, Transfers Treatment Duration: May 22, 2016 Visits Per Week: 10-15 Minutes/Day (M-F): 60-90 Minutes/Day (Sat/Chan): prn Safety Risks/Education Patient Education: Gait Training, Correct Positioning, Safety Issues Teaching Recipient: Patient Teaching Methods: Demonstration, Discussion Response to Teaching: Verbalize Understanding, Return Demonstration Time/GCodes Time In: 1300 Time Out: 1330 Total Billed Treatment Time: 30 Total Billed Treatment 1,NM30m G Codes Necessary: ELIZABETH Patel VICE PRESIDENT INDUSTRIAL RELATIONS May 15, 2016 15:05
--- NOTE | 2016-05-15 15:20 | Occupational Ther Daily Note ---
OT Current Status-Daily Note Subjective Pt. reports 10/10 pain in back in form of back spasms and "tightness." Pt. has already had all medication that he can. Appearance Pt. is up in chair. Agrees to work with OT and shower. Mental Status/Objective Patient Orientation: Person, Place, Time, Situation Functional [place] Measure 0=Not Assessed/NA 4=Minimal Assistance 1=Total Assistance 5=Supervision or Setup 2=Maximal Assistance 6=Modified [place] 3=Moderate Assistance 7=Complete [place] ADL-Treatment Functional [place] Measure 0=Not Assessed/NA 4=Minimal Assistance 1=Total Assistance 5=Supervision or Setup 2=Maximal Assistance 6=Modified [place] 3=Moderate Assistance 7=Complete IndependenceIRFPAI Quality Coding Scale 6 Independent with activity with or without an assistive device 5 Patient requires set up or clean up by helper. Patient completes activity by themselves 4 Supervision or touching assist (CGA). [place] provide cues , steadying assist 3 The helper provides less than half the effort to complete the activity 2 The helper provides more than half the effort to complete the activity 1 Dependent. The helper does all the effort to complete an activity 7 Patient refused to complete or attempt activity 9 The patient did not perform the activity before the current illness or injury 88 Not attempted due to Medical conditions or safety concerns Eating (FIM): 7 Bathing (FIM): 6 (Pt. is able to bathe self with LH sponge and bathe seat.) Upper Body (FIM): 6 Lower Body Dressing (FIM): 3 (Pt. still requires min assist to don shoes, AFO, and socks. Able to don pants.) Transfers (B, C, W/C) (FIM): 5 Shower Transfer(FIM): 5 Other Treatment Pt. agrees to shower. Is able to don shirt and neck brace with no difficulty, but still demonstrates difficulty with donning shoes, socks, and AFO. Pt. has elastic shoe laces in shoes, but still has difficulty donning them, even with shoe spoon. Education OT Patient Education: Correct positioning, Modified ADL techniques, Progress toward Goal/Update tx plan, Purpose of tx/functional activities, Reviewed precautions, Rehab process, Transfer techniques Teaching Recipient: Patient Teaching Methods: Demonstration, Discussion Response to Teaching: Verbalize Understanding, Return Demonstration OT Short Term Goals Short Term Goals Time Frame: May 08, 2016 Eating(FIM): 6 Grooming(FIM): 5 Bathing(FIM): 5 Transfers (B,C,W/C) (FIM): 4 Toilet/Commode Transfer(FIM): 4 Shower Transfer(FIM): 4 Additional Short Term Goals: 1-Demonstrate ADL Tasks, 2-Verbalize Understanding , 3-ImproveStrength/Devin 1=Demonstrate adherence to instructed precautions during ADL tasks. 2=Patient will verbalize/demonstrate understanding of assistive devices/ modifications for ADL. 3=Patient will improve strength/tolerance for activity to enable patient to perform ADL's. OT Alf Goals [place] Goals Time Frame: May 22, 2016 Eating (FIM): 6 Eating (QC): 6 Groomin Oral Hygiene (QC): 6 Bathing(FIM): 5 Shower/Bathe Self (QC): 5 Upper Body Dressing(FIM): 6 Upper Body Dressing (QC): 6 Lower Body Dressing(FIM): 6 Lower Body Dressing (QC): 6 On/Off Footwear (QC): 6 Toileting(FIM): 6 Toileting Hygiene (QC): 6 Transfers (B,C,W/C) (FIM): 5 Toilet/Commode Transfer(FIM): 6 Toilet/Commode Transfer (QC): 6 Shower Transfer(FIM): 5 Additional Goals: 1-Demonstrate ADL Tasks, 2-Verbalize Understanding, 3- ImproveStrength/Devin 1=Demonstrate adherence to instructed precautions during ADL tasks. 2=Patient will verbalize/demonstrate understanding of assistive devices/ modifications for ADL. 3=Patient will improve strength/tolerance for activity to enable patient to perform ADL's. OT Education/Plan Problem List/Assessment Assessment: Decreased Activ Tolerance, Decreased UE Strength, Impaired Coordination, Restricted Funct UE ROM Discharge Recommendations Plan/Recommendations: Continue POC Therapy D/C Recommendations: Home Independently, Occupational Therapy Home Care Equpiment Recommendations-D/C: Extended Bath Bench, Hip Kit Barriers to Progress Continual spasms. Treatment Plan/Plan of Care Treatment,Training & Education: Yes Patient would benefit from OT for education, treatment and training to promote independence in ADL's, mobility, safety and/or upper extremity function for ADL' s. Plan of Care: ADL Retraining, Caregiver Training, Functional Mobility, Group Exercise/Act as Ind, UE Funct Exercise/Act Treatment Duration: May 22, 2016 Visits Per Week: 10-12 Minutes/Day (M-F): 60-90 Minutes/Day (Sat/Chan): PRN Agreement: Yes Rehab Potential: Good Time/GCodes Start Time: 09:30 Stop Time: 10:30 Total Time Billed (hr/min): 60 Billed Treatment Time 1, ADL x 4 KAVITA ORTEGA OT May 15, 2016 15:20
--- NOTE | 2016-05-15 15:24 | Occupational Ther Daily Note ---
OT Current Status-Daily Note Subjective Pt. states that he is feeling better than from this morning. Appearance Pt. is in bed. Agrees to work with OT. Mental Status/Objective Patient Orientation: Person, Place, Time, Situation Functional [place] Measure 0=Not Assessed/NA 4=Minimal Assistance 1=Total Assistance 5=Supervision or Setup 2=Maximal Assistance 6=Modified [place] 3=Moderate Assistance 7=Complete [place] ADL-Treatment Functional [place] Measure 0=Not Assessed/NA 4=Minimal Assistance 1=Total Assistance 5=Supervision or Setup 2=Maximal Assistance 6=Modified [place] 3=Moderate Assistance 7=Complete IndependenceIRFPAI Quality Coding Scale 6 Independent with activity with or without an assistive device 5 Patient requires set up or clean up by helper. Patient completes activity by themselves 4 Supervision or touching assist (CGA). [place] provide cues , steadying assist 3 The helper provides less than half the effort to complete the activity 2 The helper provides more than half the effort to complete the activity 1 Dependent. The helper does all the effort to complete an activity 7 Patient refused to complete or attempt activity 9 The patient did not perform the activity before the current illness or injury 88 Not attempted due to Medical conditions or safety concerns Pt. is already dressed. Is able to ambulate with SBA to therapy gym. Completed armbike x 17 minutes with bilateral UE, and then with left UE only when right fatigued. Pt. educated on back safety, and wearing collar at all times. Pt. verbalizes understanding. Education OT Patient Education: Correct positioning, Exercise program, Progress toward Goal/Update tx plan, Purpose of tx/functional activities, Reviewed precautions, Rehab process, Transfer techniques Teaching Recipient: Patient Teaching Methods: Demonstration, Discussion Response to Teaching: Verbalize Understanding, Return Demonstration OT Short Term Goals Short Term Goals Time Frame: May 08, 2016 Eating(FIM): 6 Grooming(FIM): 5 Bathing(FIM): 5 Transfers (B,C,W/C) (FIM): 4 Toilet/Commode Transfer(FIM): 4 Shower Transfer(FIM): 4 Additional Short Term Goals: 1-Demonstrate ADL Tasks, 2-Verbalize Understanding , 3-ImproveStrength/Devin 1=Demonstrate adherence to instructed precautions during ADL tasks. 2=Patient will verbalize/demonstrate understanding of assistive devices/ modifications for ADL. 3=Patient will improve strength/tolerance for activity to enable patient to perform ADL's. OT Human Capital Analyst Goals Human Capital Analyst Goals Time Frame: May 22, 2016 Eating (FIM): 6 Eating (QC): 6 Groomin Oral Hygiene (QC): 6 Bathing(FIM): 5 Shower/Bathe Self (QC): 5 Upper Body Dressing(FIM): 6 Upper Body Dressing (QC): 6 Lower Body Dressing(FIM): 6 Lower Body Dressing (QC): 6 On/Off Footwear (QC): 6 Toileting(FIM): 6 Toileting Hygiene (QC): 6 Transfers (B,C,W/C) (FIM): 5 Toilet/Commode Transfer(FIM): 6 Toilet/Commode Transfer (QC): 6 Shower Transfer(FIM): 5 Additional Goals: 1-Demonstrate ADL Tasks, 2-Verbalize Understanding, 3- ImproveStrength/Devin 1=Demonstrate adherence to instructed precautions during ADL tasks. 2=Patient will verbalize/demonstrate understanding of assistive devices/ modifications for ADL. 3=Patient will improve strength/tolerance for activity to enable patient to perform ADL's. OT Education/Plan Problem List/Assessment Assessment: Decreased Activ Tolerance, Decreased UE Strength, Impaired Coordination, Restricted Funct UE ROM Discharge Recommendations Plan/Recommendations: Continue POC Therapy D/C Recommendations: Home Independently, Occupational Therapy Home Care Equpiment Recommendations-D/C: Extended Bath Bench, Hip Kit Treatment Plan/Plan of Care Treatment,Training & Education: Yes Patient would benefit from OT for education, treatment and training to promote independence in ADL's, mobility, safety and/or upper extremity function for ADL' s. Plan of Care: ADL Retraining, Caregiver Training, Functional Mobility, Group Exercise/Act as Ind, UE Funct Exercise/Act Treatment Duration: May 22, 2016 Visits Per Week: 10-12 Minutes/Day (M-F): 60-90 Minutes/Day (Sat/Chan): PRN Agreement: Yes Rehab Potential: Good Time/GCodes Start Time: 13:45 Stop Time: 14:15 Total Time Billed (hr/min): 30 Billed Treatment Time 1, EX x 2 KAVITA ORTEGA OT May 15, 2016 15:23
[2016-05-15 18:00] VITALS: BP 126/76
[2016-05-15] MEDS: BISACODYL 10 MG SUPP (DULCOLAX) PR PRN (22:53)
[2016-05-16] MEDS ORDERED: FLEET ENEMA ADULT 1 EA BTL PR PRN (04:30)
[2016-05-16] MEDS: BACLOFEN 10 MG (LIORESAL) TAB PO PRN (04:40)
[2016-05-16] MEDS: oxyCODONE/APAP 7.5-325 MG (PERCOCET 7.5) TABLET PO PRN ×2 (04:41→14:02)
[2016-05-16 05:05] VITALS: BP 124/72
[2016-05-16] MEDS: DOCUSATE SODIUM 100 MG (COLACE) CAP PO SCH (08:51)
[2016-05-16] MEDS: GABAPENTIN 300 MG (NEURONTIN) CAP PO SCH ×2 (08:51→12:57)
[2016-05-16] MEDS: SENNA W/DOCUSATE (SENOKOT S) TABLET PO SCH (08:53)
--- NOTE | 2016-05-16 09:04 | Physical Therapy Daily Note ---
PT Daily Note-Current Subjective Pt. states he had a very difficult evening last night , cant fully evacuate his bowels. Pt. was found up in room walking about with lights out, many items on floor, no shoes or AFO or cane or neck collar on, pt. resisted this NURSE LEADER when I explained that this is unsafe behavior. States after some time that he understands that if he fell he could further injure his neck/spinal cord and be more involved. Pain Numeric Pain Scale: 0-No Pain Mental Status Patient Orientation: Normal For Age Attachments: Other-See Comments (AFO right foot) Transfers Functional [place] Measure 0=Not Assessed/NA 4=Minimal Assistance 1=Total Assistance 5=Supervision or Setup 2=Maximal Assistance 6=Modified [place] 3=Moderate Assistance 7=Complete IndependenceIRFPAI Quality Coding Scale 6 Independent with activity with or without an assistive device 5 Patient requires set up or clean up by helper. Patient completes activity by themselves 4 Supervision or touching assist (CGA). [place] provide cues , steadying assist 3 The helper provides less than half the effort to complete the activity 2 The helper provides more than half the effort to complete the activity 1 Dependent. The helper does all the effort to complete an activity 7 Patient refused to complete or attempt activity 9 The patient did not perform the activity before the current illness or injury 88 Not attempted due to Medical conditions or safety concerns Transfers (B, C, W/C) (FIM): 6 Scootin Rollin Roll Left to Right (QC): 6 Supine to/from Sit: 6 Sit to/from Stand: 6 Sit to Lying (QC): 6 Sit to Stand (QC): 6 Chair/Ara-qe-Tqwuu Xfer(QC): 6 Bed to/from Chair: 6 Gait Training Does the Patient Walk?: Yes Gait (FIM): 6 Distance (FIM): 3=150 ft (500) Walk 10 feet (QC): 5 Walk 50 ft with 2 Turns(QC): 5 Walk 150 ft (QC): 5 Walking 10ft/uneven surface-QC: 5 Gait Level of Assist: 5 Gait Persons Needed: 1 Gait Assistive Device: Cane Single Point with AFO, SPC and supervision and reminders for safety pt is SBA to Mod I Stair Training Stair Training: Handrails/: 1 handrail Stairs (FIM): 5 #of Steps: 12 1 Step (curb) (QC): 5 4 Steps (QC): 5 12 Steps (QC): 5 Stairs: Pattern: Step to Level of Assist: 5 pt. simulates home situation which he has one rail, ascends reaching across to use left hand on right rail and step to gait, Balance Picking up an Object (QC): 5 Special Test Comments CABRALES 44/56 Exercises Supine Ex: Ankle pumps (right HC stretches 4x20ea. ), Rolling, Heel Slides, Short Arc Quads, Scooting, Straight leg raise, Hip abd/add Supine Reps: 15 Treatments right DF work, slight improved with 2/5 strength Assessment Current Status: Good Progress pt. has progressed well but has unsafe risky impulsive behaviours and does not heed to caution PT Short Term Goals Short Term Goals Time Frame: May 08, 2016 Transfers (B,C,W/C) (FIM): 4 (met and exceeded 4-6) Gait (FIM): 4 (met and exceded 4-6) PT Chcf Goals Chcf Goals PT Chcf Goals Time Frame: May 22, 2016 Transfers (B,C,W/C) (FIM): 6 Sit to Lying (QC): 6 Lying-Sitting on Side/Bed(QC): 6 Sit to Stand (QC): 6 Rollin Roll Left to Right (QC): 6 Chair/Hdb-hj-Kfapk Xfer(QC): 6 Car Transfer (QC): 6 Does the Patient Walk: Yes Gait (FIM): 6 Gait distance (FIM): 3=150 ft Walk 10 feet (QC): 6 Walk 10ft-Uneven Surface(QC): 6 Walk 50ft with 2 Turns (QC): 6 Walk 150 ft (QC): 6 Gait Level of Assist: 6 Gait Assistive Device: Walker Platform (or cand) Does the Pt use WC or Scooter?: No Stairs (FIM): 6 # of Steps: 12 1 Step (curb) (QC): 6 4 Steps (QC): 6 12 Steps (QC): 6 Picking up an Object (QC): 5 PT Plan Treatment/Plan Treatment Plan: Continue Plan of Care Treatment Plan: Bed Mobility, Education, Functional Activity Devin, Functional Strength, Group Therapy, Gait, Safety, Therapeutic Exercise, Transfers Treatment Duration: May 22, 2016 Visits Per Week: 10-15 Minutes/Day (M-F): 60-90 Minutes/Day (Sat/Chan): prn Safety Risks/Education Patient Education: Gait Training, Transfer Techniques, Steps, Reviewed Precautions, Correct Positioning, Reviewed Don/Doff Brace, Disease Process, Safety Issues Teaching Recipient: Patient Teaching Methods: Demonstration, Discussion Response to Teaching: Verbalize Understanding, Return Demonstration, Reinforcement Needed (impulsive, unsafe) Discharge Recommendations Therapy D/C Recommendations: Home w/ Family Support, Physical Therapy Home Care , Intermittent Supervision Equpiment Recommendations-D/C: Other, Please Explain (single point cane, custom AFO) Time/GCodes Time In: 800 Time Out: 900 Total Billed Treatment Time: 60 Total Billed Treatment 1,FA45m,EX15m G Codes Necessary: ELIZABETH Patel NURSE LEADER May 16, 2016 09:04
--- NOTE | 2016-05-16 09:51 | Occupational Ther Daily Note ---
OT Current Status-Daily Note Subjective Pt alert, sitting in recliner. Pt agreed to therapy. Pt c/o being stopped up and stated all about what he has went through to have BM. Stated that he pushed so hard to have BM that he was able to move his toes. Mental Status/Objective Functional [place] Measure 0=Not Assessed/NA 4=Minimal Assistance 1=Total Assistance 5=Supervision or Setup 2=Maximal Assistance 6=Modified [place] 3=Moderate Assistance 7=Complete [place] ADL-Treatment Functional [place] Measure 0=Not Assessed/NA 4=Minimal Assistance 1=Total Assistance 5=Supervision or Setup 2=Maximal Assistance 6=Modified [place] 3=Moderate Assistance 7=Complete IndependenceIRFPAI Quality Coding Scale 6 Independent with activity with or without an assistive device 5 Patient requires set up or clean up by helper. Patient completes activity by themselves 4 Supervision or touching assist (CGA). [place] provide cues , steadying assist 3 The helper provides less than half the effort to complete the activity 2 The helper provides more than half the effort to complete the activity 1 Dependent. The helper does all the effort to complete an activity 7 Patient refused to complete or attempt activity 9 The patient did not perform the activity before the current illness or injury 88 Not attempted due to Medical conditions or safety concerns Eating (FIM): 6 (Pt able to set self up and feed self with built up hand on eating utensils.) Eating (QC): 6 (Pt able to set self up and feed self with built up hand on eating utensils.) Grooming (FIM): 6 (Standing at sink, using cane, pt is able to complete own grooming.) Oral Hygiene (QC): 6 (Standing at sink, using cane, pt is able to complete own oral care.) Bathing (FIM): 6 (Using grabbar, shower bench, hand held shower and long handle sponge pt is able to complete own bathing.) Shower/Bathe Self (QC): 6 (Using grabbar, shower bench, hand held shower and long handle sponge pt is able to complete own bathing.) Upper Body (FIM): 6 (Using cane to retrieve clothing, pt able to complete upper body dressing.) Upper Body Dressing (QC): 6 (Using cane to retrieve clothing, pt able to complete upper body dressing.) Lower Body Dressing (FIM): 3 (Due to precautions, pt is unable to don socks, shoes and AFO by self. Pt needs reminders for precautions. Pt is able to don/ doff pants by self. Doffs socks and shoes with dressing stick.) Lower Body Dressing (QC): 3 (Due to precautions, pt is unable to don socks, shoes and AFO by self. Pt needs reminders for precautions. Pt is able to don/ doff pants by self. Doffs socks and shoes with dressing stick.) On/Off Footwear (QC): 2 (Due to precautions, pt is unable to don socks, shoes and AFO by self. Pt needs reminders for precautions. Pt is able to don/doff pants by self. Doffs socks and shoes with dressing stick.) Toileting (FIM): 6 (Using cane and grabbars, pt is able to complete on own.) Toileting Hygiene (QC): 6 (Using cane and grabbars, pt is able to complete on own.) Transfers (B, C, W/C) (FIM): 6 (Using cane, pt is able to complete. Safety concerns due to pt's tendency to forget precautions and not see tripping hazards.) Toilet/Commode Transfer (FIM): 6 (Using cane, pt is able to complete. Safety concerns due to pt's tendency to forget precautions and not see tripping hazards.) Toilet Transfer (QC): 6 (Using cane, pt is able to complete. Safety concerns due to pt's tendency to forget precautions and not see tripping hazards.) Shower Transfer(FIM): 6 (Using cane and shower bench/grabbars , pt is able to complete. Safety concerns due to pt's tendency to forget precautions and not see tripping hazards.) OT Short Term Goals Short Term Goals Time Frame: May 08, 2016 Eating(FIM): 6 Grooming(FIM): 5 Bathing(FIM): 5 Transfers (B,C,W/C) (FIM): 4 (met and exceeded 4-6) Toilet/Commode Transfer(FIM): 4 Shower Transfer(FIM): 4 Additional Short Term Goals: 1-Demonstrate ADL Tasks, 2-Verbalize Understanding , 3-ImproveStrength/Devin 1=Demonstrate adherence to instructed precautions during ADL tasks. 2=Patient will verbalize/demonstrate understanding of assistive devices/ modifications for ADL. 3=Patient will improve strength/tolerance for activity to enable patient to perform ADL's. OT Mcfp Goals Trades Helper Goals Time Frame: May 22, 2016 Eating (FIM): 6 Eating (QC): 6 Groomin Oral Hygiene (QC): 6 Bathing(FIM): 5 Shower/Bathe Self (QC): 5 Upper Body Dressing(FIM): 6 Upper Body Dressing (QC): 6 Lower Body Dressing(FIM): 6 Lower Body Dressing (QC): 6 On/Off Footwear (QC): 6 Toileting(FIM): 6 Toileting Hygiene (QC): 6 Transfers (B,C,W/C) (FIM): 5 Toilet/Commode Transfer(FIM): 6 Toilet/Commode Transfer (QC): 6 Shower Transfer(FIM): 5 Additional Goals: 1-Demonstrate ADL Tasks, 2-Verbalize Understanding, 3- ImproveStrength/Devin 1=Demonstrate adherence to instructed precautions during ADL tasks. 2=Patient will verbalize/demonstrate understanding of assistive devices/ modifications for ADL. 3=Patient will improve strength/tolerance for activity to enable patient to perform ADL's. OT Education/Plan Discharge Recommendations Plan/Recommendations: Continue POC Treatment Plan/Plan of Care Patient would benefit from OT for education, treatment and training to promote independence in ADL's, mobility, safety and/or upper extremity function for ADL' s. Plan of Care: ADL Retraining, Caregiver Training, Functional Mobility, Group Exercise/Act as Ind, UE Funct Exercise/Act Treatment Duration: May 22, 2016 Visits Per Week: 10-12 Minutes/Day (M-F): 60-90 Minutes/Day (Sat/Chan): PRN Agreement: Yes Rehab Potential: Good Time/GCodes Start Time: 09:00 Stop Time: 10:00 Total Time Billed (hr/min): 60 Billed Treatment Time 1 visit-ADL 4 (60 min) DEACON CARPENTER May 16, 2016 09:51
[2016-05-16] MEDS: LACTULOSE SYRUP 10GM/15ML (ENULOSE) 30ML UDC PO PRN (12:59)
--- NOTE | 2016-05-16 14:41 | Therapy Group Daily Note ---
Therapy Daily Group Note Patient Education Topic Other List Below (Community safety, phone and credit card scams, public safety and home safety) Other/Notes Pt ambulated to group with cane. Group consisted of introductions (name, place , sharing experiences), socialization, guest speaker from local police department that discussed different scams, public safety and home safety. They went into depth about phone and credit card scams and group members shared their stories about being scammed. The guest speaker relayed that there is a phone number that people could call at all times when there was not an emergency and a member of the police department would come and check on them. They reiterated that it was a service to the community. Pt c/o pain, nrsg notified and brought pain meds. Pt ambulated back to room with nrsg using cane. Call light/phone in reach. All needs met in room. Community safety, phone and credit card scams, public safety and home safety Start Time: 13:00 Stop Time: 14:15 Total Billed Treatment Time: 75 Total Billed Treatment 1-[facility] DEACON CARPENTER May 16, 2016 14:41
[2016-05-16 16:10] VITALS: BP 118/66
--- NOTE | 2016-05-19 08:35 | Therapy Team Discharge Summary ---
Therapy Discharge Summary Discharge Recommendations Date of Discharge May 16, 2016 at 16:15 Therapy D/C Recommendations: Home w/ Family Support, Occupational Therapy Home Care, Physical Therapy Home Care, Intermittent Supervision Occupational Therapy Pt. has been seen by occupational therapy to increase overall strength and independence with daily tasks. Pt. has demonstrated ability to do most tasks with Mod I, except LE dressing, which requires mod assist due to back precautions and non use of right hand. Pt. has gained strength and mobility in right shoulder and elbow, but still requires assistance for use of right hand. Pt. has been educated in exercises and has been provided with splint to wear at night that will assist in positioning and tone control as it progresses. Pt. would benefit from a tub transfer bench and hip kit. Discharge home with family support. Recommend follow up OT to continue with assistance for right hand use. PT Care Home Goals Care Home Goals PT Care Home Goals Time Frame: May 22, 2016 Transfers (B,C,W/C) (FIM): 6 Roll Left to Right (QC): 6 Sit to Lying (QC): 6 Lying-Sitting on Side/Bed(QC): 6 Sit to Stand (QC): 6 Chair/Wez-th-Trpjo Xfer(QC): 6 Car Transfer (QC): 6 Does the Patient Walk: Yes Gait (FIM): 6 Gait distance (FIM): 3=150 ft Walk 10 feet (QC): 6 Walk 10ft-Uneven Surface(QC): 6 Walk 50ft with 2 Turns (QC): 6 Walk 150 ft (QC): 6 Gait Level of Assist: 6 Gait Assistive Device: Walker Platform (or cand) Does the Pt use WC or Scooter?: No Stairs (FIM): 6 # of Steps: 12 1 Step (curb) (QC): 6 4 Steps (QC): 6 12 Steps (QC): 6 Picking up an Object (QC): 5 OT Care Home Goals Care Home Goals Time Frame: May 22, 2016 Eating (FIM): 6 Eating (QC): 6 Oral Hygiene (QC): 6 Grooming(FIM): 6 Bathing(FIM): 5 Shower/Bathe Self (QC): 5 Upper Body Dressing(FIM): 6 Upper Body Dressing (QC): 6 Lower Body Dressing(FIM): 6 Lower Body Dressing (QC): 6 On/Off Footwear (QC): 6 Toileting(FIM): 6 Toileting Hygiene (QC): 6 Transfers (B,C,W/C) (FIM): 5 Toilet/Commode Transfer(FIM): 6 Toilet/Commode Transfer (QC): 6 Shower Transfer(FIM): 5 Additional Goals: 1-Demonstrate ADL Tasks, 2-Verbalize Understanding, 3- ImproveStrength/Devin 1=Demonstrate adherence to instructed precautions during ADL tasks. 2=Patient will verbalize/demonstrate understanding of assistive devices/ modifications for ADL. 3=Patient will improve strength/tolerance for activity to enable patient to perform ADL's. KAVITA ORTEGA OT May 19, 2016 08:35
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
--- NOTE | 2016-06-12 15:02 | Therapy Team Discharge Summary ---
Therapy Discharge Summary Discharge Recommendations Date of Discharge May 16, 2016 at 16:15 Therapy D/C Recommendations: Home w/ Family Support, Occupational Therapy Home Care, Physical Therapy Home Care, Intermittent Supervision Physical Therapy This patient was seen on acute rehab post fall sustaining a cervical spine fracture that caused right sided u/le weakness. Upon admit, he required mod assist with transfers, ambulated less than 50 ft with FWW with min assist and was only able to traverse a curb step. Treatment focused on functional transfers and gait progression to the use of a cane with incorporated functional LE strengthening, functional act tolerance and floor transfers. He did make good progress and achieved goals set at evaluation. He was indep to mod indep with all functional mobility at discharge. Recommend pt to follow up with [facility] PT at discharge. DC PT. PT Senior Care Goals Senior Care Goals PT Records Management Clerk Goals Time Frame: May 22, 2016 Transfers (B,C,W/C) (FIM): 6 (met) Roll Left to Right (QC): 6 Sit to Lying (QC): 6 Lying-Sitting on Side/Bed(QC): 6 Sit to Stand (QC): 6 Chair/Swf-lw-Nwmxt Xfer(QC): 6 Car Transfer (QC): 6 Does the Patient Walk: Yes Gait (FIM): 6 (met) Gait distance (FIM): 3=150 ft Walk 10 feet (QC): 6 Walk 10ft-Uneven Surface(QC): 6 Walk 50ft with 2 Turns (QC): 6 Walk 150 ft (QC): 6 Gait Level of Assist: 6 Gait Assistive Device: Walker Platform (or cand) Does the Pt use WC or Scooter?: No Stairs (FIM): 6 (unmet, scored a 5) # of Steps: 12 1 Step (curb) (QC): 6 4 Steps (QC): 6 12 Steps (QC): 6 Picking up an Object (QC): 5 OT Senior Care Goals Senior Care Goals Time Frame: May 22, 2016 Eating (FIM): 6 Eating (QC): 6 Oral Hygiene (QC): 6 Grooming(FIM): 6 Bathing(FIM): 5 Shower/Bathe Self (QC): 5 Upper Body Dressing(FIM): 6 Upper Body Dressing (QC): 6 Lower Body Dressing(FIM): 6 Lower Body Dressing (QC): 6 On/Off Footwear (QC): 6 Toileting(FIM): 6 Toileting Hygiene (QC): 6 Transfers (B,C,W/C) (FIM): 5 Toilet/Commode Transfer(FIM): 6 Toilet/Commode Transfer (QC): 6 Shower Transfer(FIM): 5 Additional Goals: 1-Demonstrate ADL Tasks, 2-Verbalize Understanding, 3- ImproveStrength/Devin 1=Demonstrate adherence to instructed precautions during ADL tasks. 2=Patient will verbalize/demonstrate understanding of assistive devices/ modifications for ADL. 3=Patient will improve strength/tolerance for activity to enable patient to perform ADL's. DEACON SALAZAR PT June 12, 2016 15:01
== END 2016-05-16 16:15 | disposition home or self-care (01) | DRG 559 ==
LOC: DELPENDDIS → EDPENDDISDT 05-16 16:00 → EDPENDDISTM 05-16 16:00 → ENPENDDIS 05-17 12:00
PROVIDERS: ADMIT Physical Medicine & Rehabilitation; ATTEND Physical Medicine & Rehabilitation
DX: S12.400D Unspecified displaced fracture of fifth cervical vertebra, subsequent encounter for fracture with routine healing (principal); S14.125D Central cord syndrome at C5 level of cervical spinal cord, subsequent encounter; G82.54 Quadriplegia, C5-C7 incomplete; Z98.1 Arthrodesis status; K59.2 Neurogenic bowel, not elsewhere classified; K59.00 Constipation, unspecified; F17.210 Nicotine dependence, cigarettes, uncomplicated
CPT/HCPCS: 36415; 72100; 80053; 85025

== ENCOUNTER 2016-07-15 15:16 | Outpatient (RCR) | payer MEDICAID ==
[~2016-07-15 15:16] MED LIST: BACL10TA PO; GABA-488 PO; OXYC-464 PO; SENN-20 PO
== END 2016-09-02 | disposition home or self-care (01) ==
PROVIDERS: ATTEND Internal Medicine
DX: G62.9 Polyneuropathy, unspecified (principal)

== ENCOUNTER 2016-10-30 12:11 | Outpatient (RCR) | payer MEDICAID, OTHER | END 2016-10-31 12:14 | disposition home or self-care (01) | PROVIDERS: ATTEND Neuromusculoskeletal Medicine, Sports Medicine | DX: Z02.71 Encounter for disability determination (principal) ==

== ENCOUNTER 2017-11-24 12:23 | Emergency (ER) | payer MEDICAID, OTHER ==
[~2017-11-24] VITALS: Ht 175.3 cm; Wt 63.5 kg
[2017-11-24] MEDS ORDERED: ASPIRIN 81 MG CHEW (CHILDREN'S ASA) PO ONE (12:30)
[2017-11-24] MEDS ORDERED: NITROGLYCERIN 0.4 MG SL TABS BTL 25'S SL PRN (12:30)
--- OUTSIDE RECORDS SUMMARY | 2017-11-24 12:42 | XMS REPORT ---
Author Author ÁNGEL MORILLO Organization [facility] Address [address] [place] [address] Care Team Providers Care Hotbed Transfer Operator Name Role Phone ÁNGEL MORILLO Unavailable PROBLEMS Type Condition ICD9-CM Code [id number] Code Onset Dates Condition Status SNOMED Code Problem Cervical spinal cord injury, sequela S14.109S Active 008786631 Problem Arthritis M19.90 Active 6614339 Problem Lumbago with sciatica, right side M54.41 Active 788247751 Problem Neuropathy G62.9 Active [id number] ALLERGIES No Information ENCOUNTERS Encounter Location Date Diagnosis [facility] [address] [place], [place] [id number] 10 Aug, 2017 Neck pain M54.2 and Weight loss R63.4 [place] [address] [place] [address] 99751- 2450 Jul, Neuropathy G62.9 [place] [address] [place] [id number] [place] [address] 99759- 4018 June, [place] [address] [place] [id number] [place] [address] 52778- 4198 May, [place] [address] [place] [address] 63801- 9889 Apr, [place] [address] [place] [address] 19855- 5145 Apr, Onychomycosis B35.1 and Nail dystrophy L60.3 [place] [address] [place] [id number] [place] [address] 44261- 0133 15 Apr, 2017 Cervical spinal cord injury, sequela S14.109S [facility] [address] [place] [id number] [place] [address] 66625- 8922 Apr, intermediate current use of opiate analgesic Z79.891 ; Cervical spinal cord injury, sequela S14.109S ; Neuropathy G62.9 and Onychomycosis B35.1 [facility] [address] [place] [id number] [place], [place] [address] 2546 Mar, Onychomycosis B35.1 [facility] [address] [place] [id number] [place] [address] 73048 2546 Mar, Cervical spinal cord injury, sequela S14.109S [facility] [address] [id number] [place], [place] [address] 2546 Feb, Cervical spinal cord injury, sequela S14.109S [facility] [address] [id number] [place], [place] [address] 7266 Jan, Lumbago with sciatica, right side M54.41 [facility] [address] [place] [id number] [place] [address] 20335- 7106 Dec, Cervical spinal cord injury, sequela S14.109S and Reactive depression F32.9 [facility] [address] [place] [id number] [place] [address] 38622- 1219 Dec, Lumbago with sciatica, right side M54.41 [facility] [address] [id number] [place] [address] 85850- 8686 Nov, Lumbago with sciatica, right side M54.41 [facility] [address] [place] [id number] [place] [address] 65718- 7836 Oct, Lumbago with sciatica, right side M54.41 [facility] [address] [place] [address] [id number] [place] [address] 57636- 4426 Sep, Lumbago with sciatica, right side M54.41 [facility] [address] [place] [id number] [place] [address] 09685 2546 Sep, Lumbago with sciatica, right side M54.41 [facility] [address] [place] [address] [id number] [place] [address] 39296- 2812 Aug, Cervical spinal cord injury, sequela S14.109S and Lumbago with sciatica, right side M54.41 [place] [address] [place] [address] 00391- 8885 10 Aug, 2016 Neuropathy G62.9 [place] [address] [place] [address] 99404- 6546 12 Jul, 2016 Neuropathy G62.9 [place] [address] [place] [id number] [place] [address] 82610- 6364 June, Lumbago with sciatica, right side M54.41 ; Neuropathy G62.9 and Arthritis M19.90 [place] [address] [place] [address] 66544- 5303 May, Neuropathy G62.9 ; Lumbago with sciatica, right side M54.41 and Cervical spinal cord injury, initial encounter S14.109A IMMUNIZATIONS Vaccine Route Administration Date Status TORADOL (IM) 60 MG/2ML (UP TO 15 MG) IM Intramuscular May 05, 2017 Administered SOCIAL HISTORY Never Assessed REASON FOR VISIT Toenail removal PLAN OF CARE VITAL SIGNS Height 5 ft 9 in in 2017-05-05 Weight 130 lbs 2017-05-05 Temperature 98.1 degrees Fahrenheit 2017-05-05 Heart Rate 60 bpm 2017-05-05 Respiratory Rate 16 2017-05-05 BMI 19.20 kg/m2 2017-05-05 Blood pressure systolic 110 mmHg 2017-05-05 Blood pressure diastolic 70 mmHg 2017-05-05 MEDICATIONS Medication Instructions Dosage Frequency Start Date End Date Duration Status [place] 7.5-325 MG Orally every 6 hrs 1 tablet as needed 6h Apr, Active RESULTS No Results PROCEDURES Procedure Date Ordered Result Body Site NAIL REMOVAL PERMANENT (PARTIAL OR COMPLETE) 2017-05-05 completed REMOVAL OF NAIL BED May 05, 2017 TORADOL (IM) 60 MG/2ML (UP TO 15 MG) May 05, 2017 THER/PROPH/DIAG INJ, SC/IM May 05, 2017 INSTRUCTIONS MEDICATIONS ADMINISTERED No Known Medications MEDICAL (GENERAL) HISTORY Type Description Date Medical History Cervical fx of 5-6 Medical History Central cord syndrome Surgical History Partial fusion of C2-3 04/2016 [facility]
--- OUTSIDE RECORDS SUMMARY | 2017-11-24 12:42 | XMS REPORT ---
Author Author CHASITY VIEYRA Organization [facility] Address [address] [place] [address] Care Team Providers Care Energy Analyst Name Role Phone CHASITY VIEYRA Unavailable PROBLEMS Type Condition ICD9-CM Code [id number] Code Onset Dates Condition Status SNOMED Code Problem Cervical spinal cord injury, sequela S14.109S Active 116460235 Problem Arthritis M19.90 Active 5052511 Problem Lumbago with sciatica, right side M54.41 Active 072851120 Problem Neuropathy G62.9 Active 664264984 ALLERGIES No Known Allergies ENCOUNTERS Encounter Location Date Diagnosis [facility] [address] [place], [place] [id number] 10 Aug, 2017 Neck pain M54.2 and Weight loss R63.4 [place] [address] [place] [address] 67732- 3731 Jul, Neuropathy G62.9 [place] [address] [place] [id number] [place] [address] 75841- 8783 June, [facility] [address] [place] [address] 34261- 3591 May, [place] [address] [place] [id number] [place] [address] 92195- 4555 Apr, [facility] [address] [place] [id number] [place] [address] 14238- 6542 Apr, Onychomycosis B35.1 and Nail dystrophy L60.3 [facility] [address] [place] [address] 13263- 8812 Apr, Cervical spinal cord injury, sequela S14.109S [facility] [address] [place] [address] 18750- 1353 Apr, 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 ; Cervical spinal cord injury, sequela S14.109S ; Neuropathy G62.9 and Onychomycosis B35.1 [facility] [address] [place] [id number] [place] [address]- 1106 Mar, Onychomycosis B35.1 [facility] [address] [place] [id number] [place] [address] 253917- 6576 Mar, Cervical spinal cord injury, sequela S14.109S [facility] [address] [place] [id number] [place] [address] 38945 2546 Feb, Cervical spinal cord injury, sequela S14.109S [facility] [address] [place] [address] [id number] [place] [address] 387797- 7846 Jan, Lumbago with sciatica, right side M54.41 [facility] [address] [place] [id number] [place] [address] 82922- 7986 Dec, Cervical spinal cord injury, sequela S14.109S and Reactive depression F32.9 [facility] [address] [place] [id number] [place] [address] 41958- 5161 Dec, Lumbago with sciatica, right side M54.41 [facility] [address] [place] [id number] [place] [address] 30398- 0444 Nov, Lumbago with sciatica, right side M54.41 [facility] [address] [place] [id number] [place] [address] 12544- 5656 Oct, Lumbago with sciatica, right side M54.41 [facility] [address] [place] [id number] [place] [address] 94718- 3036 Sep, Lumbago with sciatica, right side M54.41 [facility] [address] [place] [id number] [place] [address] 24997- 7596 Sep, Lumbago with sciatica, right side M54.41 [facility] [address] [place] [id number] [place] [address] 54464- 0796 Aug, Cervical spinal cord injury, sequela S14.109S and Lumbago with sciatica, right side M54.41 [place] [address] [address] 6054 Aug, Neuropathy G62.9 [place] [address] [address]- 8700 Jul, Neuropathy G62.9 [place] [address] [place] [id number] [place] [address] 988713- 1526 June, Lumbago with sciatica, right side M54.41 ; Neuropathy G62.9 and Arthritis M19.90 [place] [address] [address]- 5874 May, Neuropathy G62.9 ; Lumbago with sciatica, right side M54.41 and Cervical spinal cord injury, initial encounter S14.109A IMMUNIZATIONS No Known Immunizations SOCIAL HISTORY Never Assessed REASON FOR VISIT Pain management (chronic), Medications -Stone ROD PLAN OF CARE Activity Details Follow Up 6 Months Reason: VITAL SIGNS Height 5 ft 9 in in 2017-07-20 Weight 128.2 lbs 2017-07-20 Temperature 97.8 degrees Fahrenheit 2017-07-20 Heart Rate 86 bpm 2017-07-20 Respiratory Rate 20 2017-07-20 BMI 18.93 kg/m2 2017-07-20 Blood pressure systolic 118 mmHg 2017-07-20 Blood pressure diastolic 74 mmHg 2017-07-20 MEDICATIONS Medication Instructions Dosage Frequency Start Date End Date Duration Status Baclofen Active [place] 7.5-325 MG Orally every 6 hrs 1 tablet as needed 6h Apr, Not-Taking RESULTS No Results PROCEDURES No Known procedures INSTRUCTIONS MEDICATIONS ADMINISTERED No Known Medications MEDICAL (GENERAL) HISTORY Type Description Date Medical History Cervical fx of 5-6 Medical History Central cord syndrome Surgical History Partial fusion of C2-3 04/2016 [facility] [place]
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
--- OUTSIDE RECORDS SUMMARY | 2017-11-24 12:42 | XMS REPORT ---
Author Author ÁNGEL MORILLO Organization [facility] Address [address] [place] [address] Care Team Providers Care Material Reclaimer Name Role Phone ÁNGEL MORILLO Unavailable PROBLEMS Type Condition ICD9-CM Code OWO20-AE Code Onset Dates Condition Status SNOMED Code Problem Cervical spinal cord injury, sequela S14.109S Active 709016619 Problem Arthritis M19.90 Active 3220026 Problem Lumbago with sciatica, right side M54.41 Active 705927579 Problem Neuropathy G62.9 Active [id number] ALLERGIES No Known Allergies ENCOUNTERS Encounter Location Date Diagnosis [facility] [address], [place] [id number] 10 Aug, 2017 Neck pain M54.2 and Weight loss R63.4 [place] [address] [place] [address] 19290- 1449 Jul, Neuropathy G62.9 [place] [address] [place] [id number] [place] [address] 90217- 4530 June, [place] [address] [place] [id number] [place] [address] 43412- 3800 May, [place] [address] [place] [address] 29392- 5558 Apr, [facility] [address] [place] [address] 16839- 9897 Apr, Onychomycosis B35.1 and Nail dystrophy L60.3 [facility] [address] [place] [id number] [place] [address] 85975- 9133 15 Apr, 2017 Cervical spinal cord injury, sequela S14.109S [facility] [address] [place] [address] 84964- 7387 Apr, [facility] current use of opiate analgesic Z79.891 ; Cervical spinal cord injury, sequela S14.109S ; Neuropathy G62.9 and Onychomycosis B35.1 [facility] [address] [place] [id number] [place], [place] [address] 2546 Mar, Onychomycosis B35.1 [facility] [address] [place] [id number] [place] [address] 26942 2546 Mar, Cervical spinal cord injury, sequela S14.109S [facility] [address] [place] [id number] [place], [place] [address] 2546 Feb, Cervical spinal cord injury, sequela S14.109S [facility] [address] [place] [id number] [place], [place] [address] 8846 Jan, Lumbago with sciatica, right side M54.41 [facility] [address] [place] [id number] [place] [address] 65602- 5846 Dec, Cervical spinal cord injury, sequela S14.109S and Reactive depression F32.9 [facility] [address] [id number] [place] [address] 54529- 2629 Dec, Lumbago with sciatica, right side M54.41 [facility] [address] [place] [id number] [place] [address] 30144- 3796 Nov, Lumbago with sciatica, right side M54.41 [facility] [address] [place] [id number] [place] [address] 66692 2546 Oct, Lumbago with sciatica, right side M54.41 [facility] [address] [place] [id number] [place] [address] 16997- 9936 Sep, Lumbago with sciatica, right side M54.41 [facility] [address] [place] [id number] [place] [address] 44528- 4636 07 Sep, 2016 Lumbago with sciatica, right side M54.41 [facility] [address] [place] [id number] [place] [address] 53330- 1612 Aug, Cervical spinal cord injury, sequela S14.109S and Lumbago with sciatica, right side M54.41 [place] [address], [place] [address]- 4921 Aug, Neuropathy G62.9 [place] [address] [place] [address] 53702- 9022 Jul, Neuropathy G62.9 [place] [address] [place] [id number] [place] [address] 14618- 6339 June, Lumbago with sciatica, right side M54.41 ; Neuropathy G62.9 and Arthritis M19.90 [place] [address] [place] [address] 53771- 0147 May, Neuropathy G62.9 ; Lumbago with sciatica, right side M54.41 and Cervical spinal cord injury, initial encounter S14.109A IMMUNIZATIONS No Known Immunizations SOCIAL HISTORY Never Assessed REASON FOR VISIT [facility] PLAN OF CARE VITAL SIGNS Height 5 ft 9 in in 2017-08-18 Weight 135.5 lbs 2017-08-18 Heart Rate 80 bpm 2017-08-18 Respiratory Rate 16 2017-08-18 BMI 20.01 kg/m2 2017-08-18 Blood pressure systolic 100 mmHg 2017-08-18 Blood pressure diastolic 70 mmHg 2017-08-18 MEDICATIONS Unknown Medications RESULTS No Results PROCEDURES No Known procedures INSTRUCTIONS MEDICATIONS ADMINISTERED No Known Medications MEDICAL (GENERAL) HISTORY Type Description Date Medical History Cervical fx of 5-6 Medical History Central cord syndrome Surgical History Partial fusion of C2-3 04/2016 [facility]
--- OUTSIDE RECORDS SUMMARY | 2017-11-24 12:42 | XMS REPORT ---
Author Author ÁNGEL MORILLO Organization [facility] Address [address] [place] [address] Care Team Providers Care Research Methods Instructor Name Role Phone ÁNGEL MORILLO Unavailable PROBLEMS Type Condition ICD9-CM Code [id number] Code Onset Dates Condition Status SNOMED Code Problem Cervical spinal cord injury, sequela S14.109S Active 281726006 Problem Arthritis M19.90 Active 4299161 Problem Lumbago with sciatica, right side M54.41 Active 930043420 Problem Neuropathy G62.9 Active 733940508 ALLERGIES No Information ENCOUNTERS Encounter Location Date Diagnosis [facility] [address] [place], [place] [id number] 10 Aug, 2017 Neck pain M54.2 and Weight loss R63.4 [place] [address] [place] [address] 58691- 8331 Jul, Neuropathy G62.9 [place] [address] [place] [id number] [place] [address] 74913- 1581 June, [place] [address] [place] [id number] [place] [address] 07625- 7406 May, [place] [address] [place] [address] 84535- 7190 Apr, [place] [address] [place] [address] 37780- 8384 Apr, Onychomycosis B35.1 and Nail dystrophy L60.3 [place] [address] [place] [address] [id number] [place] [address] 52579- 3595 15 Apr, 2017 Cervical spinal cord injury, sequela S14.109S [facility] [id number] [place] [address] 08034- 8727 Apr, USP current use of opiate analgesic Z79.891 ; Cervical spinal cord injury, sequela S14.109S ; Neuropathy G62.9 and Onychomycosis B35.1 [facility] [id number] [place] [address] 2546 Mar, Onychomycosis B35.1 [facility] [address] [id number] [place] [address] 42703 2546 Mar, Cervical spinal cord injury, sequela S14.109S [facility] [id number] [place] [address] 2546 Feb, Cervical spinal cord injury, sequela S14.109S [facility] [id number] [place] [address] 2146 Jan, Lumbago with sciatica, right side M54.41 [facility] [id number] [place] [address] 35475- 9346 Dec, Cervical spinal cord injury, sequela S14.109S and Reactive depression F32.9 [facility] [id number] [place] [address] 83002- 6914 Dec, Lumbago with sciatica, right side M54.41 [facility] [id number] [place] [address] 39732- 1146 Nov, Lumbago with sciatica, right side M54.41 [facility] [id number] [place] [address] 57310- 9086 Oct, Lumbago with sciatica, right side M54.41 [facility] [id number] [place] [address] 16080- 0746 Sep, Lumbago with sciatica, right side M54.41 [facility] [id number] [place] [address] 81711 2546 Sep, Lumbago with sciatica, right side M54.41 [facility] [id number] [place] [address] 53912- 4414 Aug, Cervical spinal cord injury, sequela S14.109S and Lumbago with sciatica, right side M54.41 [place] [address] [address] 7613 Aug, Neuropathy G62.9 [place] [address] [address] 0591 Jul, Neuropathy G62.9 [place] [address] [place] [id number] [place] [address] 80720- 5941 June, Lumbago with sciatica, right side M54.41 ; Neuropathy G62.9 and Arthritis M19.90 [place] [address] [place] [address] 76997- 6868 May, Neuropathy G62.9 ; Lumbago with sciatica, right side M54.41 and Cervical spinal cord injury, initial encounter S14.109A IMMUNIZATIONS No Known Immunizations SOCIAL HISTORY Never Assessed REASON FOR VISIT procedure appt PLAN OF CARE VITAL SIGNS MEDICATIONS Unknown Medications RESULTS No Results PROCEDURES No Known procedures INSTRUCTIONS MEDICATIONS ADMINISTERED No Known Medications MEDICAL (GENERAL) HISTORY Type Description Date Medical History Cervical fx of 5-6 Medical History Central cord syndrome Surgical History Partial fusion of C2-3 04/2016 Hospitalization History [facility] 04/2016
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
--- OUTSIDE RECORDS SUMMARY | 2017-11-24 12:42 | XMS REPORT ---
Author Author CHASITY VIEYRA Organization [facility] Address [address] [place] [address] Care Team Providers Care Paving Stone Installer Name Role Phone CHASITY VIEYRA Unavailable PROBLEMS Type Condition ICD9-CM Code [id number] Code Onset Dates Condition Status SNOMED Code Problem Cervical spinal cord injury, sequela S14.109S Active 828631722 Problem Arthritis M19.90 Active 4980699 Problem Lumbago with sciatica, right side M54.41 Active 331004761 Problem Neuropathy G62.9 Active 766522813 ALLERGIES No Known Allergies ENCOUNTERS Encounter Location Date Diagnosis [facility] [address] [place] [id number] 10 Aug, 2017 Neck pain M54.2 and Weight loss R63.4 [place] [address] [place] [address] 35491- 8990 Jul, Neuropathy G62.9 [place] [address] [place] [id number] [place] [address] 21091- 2047 June, [facility] [address] [place] [address] 65899- 7231 May, [place] [address] [place] [id number] [place] [address] 81660- 6658 Apr, [facility] [address] [place] [id number] [place] [address] 09663- 4599 Apr, Onychomycosis B35.1 and Nail dystrophy L60.3 [facility] [address] [place] [address] 96696- 2996 Apr, Cervical spinal cord injury, sequela S14.109S [facility] [address] [place] [address] 33575- 7294 Apr, 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 ; Cervical spinal cord injury, sequela S14.109S ; Neuropathy G62.9 and Onychomycosis B35.1 [facility] [address] [place] [id number] [place] [address]- [address]886 Mar, Onychomycosis B35.1 [facility] [address] [place] [id number] [place] [address] 948251- 4226 Mar, Cervical spinal cord injury, sequela S14.109S [facility] [address] [place] [id number] [place] [address] 24705 2546 Feb, Cervical spinal cord injury, sequela S14.109S [facility] [address] [place] [id number] [place] [address] 167806- 8636 Jan, Lumbago with sciatica, right side M54.41 [facility] [address] [id number] [place] [address] 56759- 2486 Dec, Cervical spinal cord injury, sequela S14.109S and Reactive depression F32.9 [facility] [address] [place] [id number] [place] [address] 63043- 6020 Dec, Lumbago with sciatica, right side M54.41 [facility] [address] [place] [id number] [place] [address] 55308- 7237 Nov, Lumbago with sciatica, right side M54.41 [facility] [address] [id number] [place] [address] 30190- 3896 Oct, Lumbago with sciatica, right side M54.41 [facility] [address] [id number] [place] [address] 36747- 4116 Sep, Lumbago with sciatica, right side M54.41 [facility] [address] [place] [id number] [place] [address] 33686- 0956 Sep, Lumbago with sciatica, right side M54.41 [facility] [address] [id number] [place] [address] 51416- 4324 Aug, Cervical spinal cord injury, sequela S14.109S and Lumbago with sciatica, right side M54.41 [place] [address], [place] [address]- 6838 Aug, Neuropathy G62.9 [place] [address], [place] [address]- 4426 Jul, Neuropathy G62.9 [place] [address] [place] [id number] [place] [address] 69913- 5859 June, Lumbago with sciatica, right side M54.41 ; Neuropathy G62.9 and Arthritis M19.90 [place] [address], [place] [address]- 3024 May, Neuropathy G62.9 ; Lumbago with sciatica, right side M54.41 and Cervical spinal cord injury, initial encounter S14.109A IMMUNIZATIONS No Known Immunizations SOCIAL HISTORY Never Assessed REASON FOR VISIT Pain management (chronic)----DBennettRN, Ameritox, PHQ2, AUDIT C PLAN OF CARE Activity Details Follow Up 3 Months Reason: VITAL SIGNS Height 5 ft 9 in in 2017-04-20 Weight 133 lbs 2017-04-20 Temperature 98.1 degrees Fahrenheit 2017-04-20 Heart Rate 70 bpm 2017-04-20 Respiratory Rate 20 2017-04-20 BMI 19.64 kg/m2 2017-04-20 Blood pressure systolic 104 mmHg 2017-04-20 Blood pressure diastolic 62 mmHg 2017-04-20 MEDICATIONS Medication Instructions Dosage Frequency Start Date End Date Duration Status Hydrocodone-Acetaminophen 7.5-325 MG Orally 3 times a day 1 tablet as needed 8h Mar, 28 days Active Neurontin 600 MG TAKE ONE TABLET BY MOUTH THREE TIMES DAILY 90 Active Baclofen 10 MG TAKE ONE TABLET BY MOUTH THREE TIMES DAILY WITH FOOD OR MILK NEEDED FOR MUSCLE SPASM 90 Active RESULTS Name Result Date Reference Range AMERITOX 2017-04-20 PROCEDURES Procedure Date Ordered Result Body Site No Charge April 20, 2017 INSTRUCTIONS MEDICATIONS ADMINISTERED No Known Medications MEDICAL (GENERAL) HISTORY Type Description Date Medical History Cervical fx of 5-6 Medical History Central cord syndrome Surgical History Partial fusion of C2-3 04/2016 Hospitalization History [facility] then [facility] 04/2016
--- OUTSIDE RECORDS SUMMARY | 2017-11-24 12:42 | XMS REPORT ---
Author Author CHASITY VIEYRA Organization [facility] Address [address] [place] [address] Care Team Providers Care Director Of Online Merchandising Name Role Phone CHASITY VIEYRA Unavailable PROBLEMS Type Condition ICD9-CM Code EXK41-JH Code Onset Dates Condition Status SNOMED Code Problem Cervical spinal cord injury, sequela S14.109S Active 544720809 Problem Arthritis M19.90 Active 3626030 Problem Lumbago with sciatica, right side M54.41 Active 600077010 Problem Neuropathy G62.9 Active 524352125 ALLERGIES No Information ENCOUNTERS Encounter Location Date Diagnosis [facility] [address] [place] [id number] 10 Aug, 2017 Neck pain M54.2 and Weight loss R63.4 [place] [address] [place] [id number] [place] [address] 44308- 9395 Jul, Neuropathy G62.9 [place] [address] [place] [id number] [place] [address] 75428- 0109 June, [facility] [address] [place] [address] 19327- 0765 May, [place] [address] [place] [id number] [place] [address] 37559- 4234 Apr, [facility] [address] [address] [id number] [place] [address] 08349- 1573 Apr, Onychomycosis B35.1 and Nail dystrophy L60.3 [facility] [address] [place] [id number] [place] [address] 59403- 2812 Apr, Cervical spinal cord injury, sequela S14.109S [facility] [address] [place] [address] 01941- 3282 Apr, care home current use of opiate analgesic Z79.891 ; Cervical spinal cord injury, sequela S14.109S ; Neuropathy G62.9 and Onychomycosis B35.1 [facility] [address] [place] [phone]- 8416 Mar, Onychomycosis B35.1 [facility] [id number] [place] [address] 818189- 0866 Mar, Cervical spinal cord injury, sequela S14.109S [facility] [id number] [place] [place] [address] 2546 Feb, Cervical spinal cord injury, sequela S14.109S [facility] [id number] [place] [address] 40466- 1516 Jan, Lumbago with sciatica, right side M54.41 [facility] [address] 41244- 8016 Dec, Cervical spinal cord injury, sequela S14.109S and Reactive depression F32.9 [facility] [address] 01085- 3357 Dec, Lumbago with sciatica, right side M54.41 [facility] [id number] [place] [address] 91609- 3824 Nov, Lumbago with sciatica, right side M54.41 [facility] [id number] [place] [address] 04399- 0366 Oct, Lumbago with sciatica, right side M54.41 [facility] [id number] [place] [address] 22334- 5286 Sep, Lumbago with sciatica, right side M54.41 [facility] [id number] [place] [address] 28673- 1415 Sep, Lumbago with sciatica, right side M54.41 [facility] [id number] [place] [address] 63838- 8247 Aug, Cervical spinal cord injury, sequela S14.109S and Lumbago with sciatica, right side M54.41 [place] [address], [place] [address]- 1568 Aug, Neuropathy G62.9 [place] [address], [place] [address]- 5475 Jul, Neuropathy G62.9 [place] [address] [place] [id number] [place] [address] 11692- 1019 June, Lumbago with sciatica, right side M54.41 ; Neuropathy G62.9 and Arthritis M19.90 [place] [address], [place] [address]- 4157 May, Neuropathy G62.9 ; Lumbago with sciatica, right side M54.41 and Cervical spinal cord injury, initial encounter S14.109A IMMUNIZATIONS No Known Immunizations SOCIAL HISTORY Never Assessed REASON FOR VISIT Requests return call PLAN OF CARE VITAL SIGNS MEDICATIONS Unknown Medications RESULTS No Results PROCEDURES No Known procedures INSTRUCTIONS MEDICATIONS ADMINISTERED No Known Medications MEDICAL (GENERAL) HISTORY Type Description Date Medical History Cervical fx of 5-6 Medical History Central cord syndrome Surgical History Partial fusion of C2-3 04/2016 [facility]
--- OUTSIDE RECORDS SUMMARY | 2017-11-24 12:43 | XMS REPORT ---
Author Author ÁNGEL MORILLO Organization [facility] Address [address] [place] [address] Care Team Providers Care Durability Engineer Name Role Phone ÁNGEL MORILLO Unavailable PROBLEMS Type Condition ICD9-CM Code CCH04-IG Code Onset Dates Condition Status SNOMED Code Problem Cervical spinal cord injury, sequela S14.109S Active 410642358 Problem Arthritis M19.90 Active 2949397 Problem Lumbago with sciatica, right side M54.41 Active 174646892 Problem Neuropathy G62.9 Active 187809101 ALLERGIES No Known Allergies ENCOUNTERS Encounter Location Date Diagnosis [place] [id number] [place] [address] 85324- 0783 Jul, Neuropathy G62.9 [place] [id number] [place] [address] 84239- 2357 June, [place] [address] 78394[address] 4490 May, [place] [id number] [place] [address] 30570- 6999 Apr, [place] [id number] [place] [address] 36993- 1826 Apr, Onychomycosis B35.1 and Nail dystrophy L60.3 [facility] [id number] [place] [address] 48068- 8693 Apr, Cervical spinal cord injury, sequela S14.109S [facility] [id number] [place] [address] 64857- 3780 Apr, jail current use of opiate analgesic Z79.891 ; Cervical spinal cord injury, sequela S14.109S ; Neuropathy G62.9 and Onychomycosis B35.1 [facility] [id number] [place] [address] 10380- 7196 Mar, Onychomycosis B35.1 [facility] [id number] [place] [address] Mar, Cervical spinal cord injury, sequela S14.109S [facility] [id number] [place], [place] [address] 4196 Feb, Cervical spinal cord injury, sequela S14.109S [facility] [id number] [place] [address] 07653- 5456 Jan, Lumbago with sciatica, right side M54.41 [facility] [id number] [place] [address] 26692- 2896 Dec, Cervical spinal cord injury, sequela S14.109S and Reactive depression F32.9 [facility] [id number] [place] [address] 07179- 8416 Dec, Lumbago with sciatica, right side M54.41 [facility] [id number] [place] [address] 45221- 9146 Nov, Lumbago with sciatica, right side M54.41 [facility] [id number] [place] [address] 93961- 9356 Oct, Lumbago with sciatica, right side M54.41 [facility] [id number] [place] [address] 80047- 5296 Sep, Lumbago with sciatica, right side M54.41 [facility] [id number] [place] [address] 30855- 9236 Sep, Lumbago with sciatica, right side M54.41 [facility] [id number] [place] [address] 48522- 3006 Aug, Cervical spinal cord injury, sequela S14.109S and Lumbago with sciatica, right side M54.41 [place] [address] [facility] [id number] [address] 7763 Aug, Neuropathy G62.9 [place] [id number] [address] 3689 Jul, Neuropathy G62.9 [place] [address] [address] 7[address] June, Lumbago with sciatica, right side M54.41 ; Neuropathy G62.9 and Arthritis M19.90 [place] [address] [facility] [id number] [address] May, Neuropathy G62.9 ; Lumbago with sciatica, right side M54.41 and Cervical spinal cord injury, initial encounter S14.109A IMMUNIZATIONS No Known Immunizations SOCIAL HISTORY Never Assessed REASON FOR VISIT toe pain, Right foot has two toes with concerns but PT requests that all his toes get checked-Claude ROD PLAN OF CARE VITAL SIGNS Height 5 ft 9 in in 2017-04-06 Weight 139.2 lbs 2017-04-06 Temperature 97.7 degrees Fahrenheit 2017-04-06 Heart Rate 62 bpm 2017-04-06 Respiratory Rate 18 2017-04-06 BMI 20.55 kg/m2 2017-04-06 Blood pressure systolic 104 mmHg 2017-04-06 Blood pressure diastolic 72 mmHg 2017-04-06 MEDICATIONS Medication Instructions Dosage Frequency Start Date End Date Duration Status Colace 100 MG Orally Once a day 1 capsule as needed 24h Not-Taking Dulcolax 10 mg Rectal PRN 1 suppository as needed Not-Taking Neurontin 600 MG TAKE ONE TABLET BY MOUTH THREE TIMES DAILY 90 Active Baclofen 10 MG TAKE ONE TABLET BY MOUTH THREE TIMES DAILY WITH FOOD OR MILK NEEDED FOR MUSCLE SPASM 90 Active Cymbalta 30 MG Orally Twice a day 1 capsule 12h June, 30 day(s) Active Terbinafine HCl 1 % Externally Once a day 1 application to affected area 24h Mar, Active Hydrocodone-Acetaminophen 7.5-325 MG Orally 3 times a day 1 tablet as needed 8h Mar, 28 days Active RESULTS No Results PROCEDURES No Known procedures INSTRUCTIONS MEDICATIONS ADMINISTERED No Known Medications MEDICAL (GENERAL) HISTORY Type Description Date Medical History Cervical fx of 5-6 Medical History Central cord syndrome Surgical History Partial fusion of C2-3 04/2016 [facility]
--- OUTSIDE RECORDS SUMMARY | 2017-11-24 12:44 | XMS REPORT ---
Author Author CHASITY VIEYRA Organization [facility] Address [address] [place] [address] Care Team Providers Care Otolaryngology Nurse Name Role Phone CHASITY VIEYRA Unavailable PROBLEMS Type Condition ICD9-CM Code LCG08-UF Code Onset Dates Condition Status SNOMED Code Problem Cervical spinal cord injury, sequela S14.109S Active 796390706 Problem Arthritis M19.90 Active 3327644 Problem Lumbago with sciatica, right side M54.41 Active 504673736 Problem Neuropathy G62.9 Active 768380138 ALLERGIES No Known Allergies ENCOUNTERS Encounter Location Date Diagnosis [place] [address] [address]484- 8391 Jul, [place] [id number] [place] [address] 96870- 7667 June, [place] [address] 49256- 8846 May, [place] [id number] [place] [address] 63109- 8736 Apr, [place] [id number] [place] [address] 00918- 0238 Apr, Onychomycosis B35.1 and Nail dystrophy L60.3 [place] [id number] [place] [address] 17003- 5669 Apr, Cervical spinal cord injury, sequela S14.109S [place] [id number] [place] [address] 87332- 9324 Apr, 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 ; Cervical spinal cord injury, sequela S14.109S ; Neuropathy G62.9 and Onychomycosis B35.1 [facility] [id number] [place] [address] Mar, Onychomycosis B35.1 [facility] [id number] [place] [address] 605 Mar, Cervical spinal cord injury, sequela S14.109S [facility] [id number] [place] [address] 0566 Feb, Cervical spinal cord injury, sequela S14.109S [facility] [id number] [place] [address] 10223 6966 Jan, Lumbago with sciatica, right side M54.41 [facility] [id number] [place] [address] 9686 Dec, Cervical spinal cord injury, sequela S14.109S and Reactive depression F32.9 [facility] [address] 95929- 4716 Dec, Lumbago with sciatica, right side M54.41 [facility] [id number] [place] [address] 08443- 0046 Nov, Lumbago with sciatica, right side M54.41 [facility] [id number] [place] [address] 10175- 7656 Oct, Lumbago with sciatica, right side M54.41 [facility] [id number] [place] [address] 96793- 5186 Sep, Lumbago with sciatica, right side M54.41 [facility] [id number] [place] [address] 51341- 1116 Sep, Lumbago with sciatica, right side M54.41 [facility] [id number] [place] [address] 22678- 8616 Aug, Cervical spinal cord injury, sequela S14.109S and Lumbago with sciatica, right side M54.41 [place] [address] [facility] [id number] [address] 6264 Aug, Neuropathy G62.9 [place] [address], [place] [address] 3230 Jul, Neuropathy G62.9 [place] [address], [place] [address] 4975 June, Lumbago with sciatica, right side M54.41 ; Neuropathy G62.9 and Arthritis M19.90 [place] [address], [place] [address]- 4566 May, Neuropathy G62.9 ; Lumbago with sciatica, right side M54.41 and Cervical spinal cord injury, initial encounter S14.109A IMMUNIZATIONS No Known Immunizations SOCIAL HISTORY Never Assessed REASON FOR VISIT Pain management (chronic)--Charles Diop MA PLAN OF CARE Activity Details Follow Up 3 Months Reason: VITAL SIGNS Height 5 ft 9 in in 2017-01-05 Weight 137.9 lbs 2017-01-05 Temperature 98.4 degrees Fahrenheit 2017-01-05 Heart Rate 82 bpm 2017-01-05 Respiratory Rate 18 2017-01-05 BMI 20.36 kg/m2 2017-01-05 Blood pressure systolic 118 mmHg 2017-01-05 Blood pressure diastolic 72 mmHg 2017-01-05 MEDICATIONS Medication Instructions Dosage Frequency Start Date End Date Duration Status Colace 100 MG Orally Once a day 1 capsule as needed 24h Active Hydrocodone-Acetaminophen 7.5-325 MG Orally 3 times a day 1 tablet as needed 8h Dec, 28 days Active Dulcolax 10 mg Rectal PRN 1 suppository as needed Active Cymbalta 30 MG Orally Twice a day 1 capsule 12h June, 30 day(s) Active Baclofen 10 MG TAKE ONE TABLET BY MOUTH THREE TIMES DAILY WITH FOOD OR MILK NEEDED FOR MUSCLE SPASM 90 Active Neurontin 600 MG TAKE ONE TABLET BY MOUTH THREE TIMES DAILY 90 Active RESULTS No Results PROCEDURES No Known procedures INSTRUCTIONS MEDICATIONS ADMINISTERED No Known Medications MEDICAL (GENERAL) HISTORY Type Description Date Medical History Cervical fx of 5-6 Medical History Central cord syndrome Surgical History Partial fusion of C2-3 04/2016 [facility]
--- OUTSIDE RECORDS SUMMARY | 2017-11-24 12:44 | XMS REPORT ---
Author Author CHASITY VIEYRA Organization [facility] Address [address] [place] [address] Care Team Providers Care Refinery Operator Assistant Name Role Phone CHASITY VIEYRA Unavailable PROBLEMS Type Condition ICD9-CM Code HOE89-QX Code Onset Dates Condition Status SNOMED Code Problem Cervical spinal cord injury, sequela S14.109S Active 218678344 Problem Arthritis M19.90 Active 3712166 Problem Lumbago with sciatica, right side M54.41 Active 609196905 Problem Neuropathy G62.9 Active 395636396 ALLERGIES No Information ENCOUNTERS Encounter Location Date Diagnosis [place] [address] 87092- 6432 Jul, Neuropathy G62.9 [place] [address] 64529- 9663 June, [place] [address] 48201- 5666 May, [place] [id number] [place] [address] 32195- 0238 Apr, [place] [address] 61734- 0153 Apr, Onychomycosis B35.1 and Nail dystrophy L60.3 [place] [address] 71686- 3177 15 Apr, 2017 Cervical spinal cord injury, sequela S14.109S [place] [address] 82781- 0137 12 Apr, 2017 snf current use of opiate analgesic Z79.891 ; Cervical spinal cord injury, sequela S14.109S ; Neuropathy G62.9 and Onychomycosis B35.1 [facility] [id number] [place] [address] 71547- 8296 Mar, Onychomycosis B35.1 [facility] [id number] [place], [place] [address] 2546 Mar, Cervical spinal cord injury, sequela S14.109S [facility] [id number] [place] [address] 9206 Feb, Cervical spinal cord injury, sequela S14.109S [facility] [id number] [place] [address] 33737- 9616 Jan, Lumbago with sciatica, right side M54.41 [facility] [id number] [place] [address] 14417- 5296 Dec, Cervical spinal cord injury, sequela S14.109S and Reactive depression F32.9 [place] [id number] [place] [address] 37856- 9530 Dec, Lumbago with sciatica, right side M54.41 [facility] [id number] [place] [address] 047616- 3556 Nov, Lumbago with sciatica, right side M54.41 [facility] [id number] [place] [address] 91669- 2196 Oct, Lumbago with sciatica, right side M54.41 [facility] [address] [place] [address] 69505- 3436 Sep, Lumbago with sciatica, right side M54.41 [facility] [id number] [place] [address] 41571- 6556 Sep, Lumbago with sciatica, right side M54.41 [facility] [id number] [place] [address] 79835- 3316 Aug, Cervical spinal cord injury, sequela S14.109S and Lumbago with sciatica, right side M54.41 [place] [address] [facility] [id number] [place] [address]- 4798 Aug, Neuropathy G62.9 [place] [address] [place] [id number] [address]- 8628 Jul, Neuropathy G62.9 [place] [address] [id number] [address] June, Lumbago with sciatica, right side M54.41 ; Neuropathy G62.9 and Arthritis M19.90 [place] [address] [facility] [id number] [address]- 1416 May, Neuropathy G62.9 ; Lumbago with sciatica, right side M54.41 and Cervical spinal cord injury, initial encounter S14.109A IMMUNIZATIONS No Known Immunizations SOCIAL HISTORY Never Assessed REASON FOR VISIT Hydrocodone 03/30 PLAN OF CARE VITAL SIGNS MEDICATIONS Medication Instructions Dosage Frequency Start Date [...] [facility]
--- OUTSIDE RECORDS SUMMARY | 2017-11-24 12:44 | XMS REPORT ---
Author Author CHASITY VIEYRA Organization [facility] Address [address] [place] [address] Care Team Providers Care Test Car Driver Name Role Phone CHASITY VIEYRA Unavailable PROBLEMS Type Condition ICD9-CM Code [id number] Code Onset Dates Condition Status SNOMED Code Problem Cervical spinal cord injury, sequela S14.109S Active 972280204 Problem Arthritis M19.90 Active 4348117 Problem Lumbago with sciatica, right side M54.41 Active 584732366 Problem Neuropathy G62.9 Active 894963949 ALLERGIES No Known Allergies ENCOUNTERS Encounter Location Date Diagnosis [place] [id number] [place] [address] 36657- 6320 Apr, [place] [id number] [place] [address] 78817- 0910 Apr, Onychomycosis B35.1 and Nail dystrophy L60.3 [place] [id number] [place] [address] 92114- 3702 Apr, Cervical spinal cord injury, sequela S14.109S [place] [id number] [place] [address] 56373- 9646 Apr, retirement current use of opiate analgesic Z79.891 ; Cervical spinal cord injury, sequela S14.109S ; Neuropathy G62.9 and Onychomycosis B35.1 [place] [id number] [place] [address] 26951- 0428 Mar, Onychomycosis B35.1 [place] [address] [place] [address] 43168- 1977 Mar, Cervical spinal cord injury, sequela S14.109S [place] [address] [place] [address]- 6406 Feb, Cervical spinal cord injury, sequela S14.109S [facility] [id number] [place] [address] 04927- 6376 Jan, Lumbago with sciatica, right side M54.41 [facility] [id number] [place] [address] 76822 2546 Dec, Cervical spinal cord injury, sequela S14.109S and Reactive depression F32.9 [facility] [id number] [place] [address] 50634 2546 Dec, Lumbago with sciatica, right side M54.41 [facility] [id number] [place] [address] 86174- 1216 Nov, Lumbago with sciatica, right side M54.41 [facility] [id number] [place] [address] 03177- 3616 Oct, Lumbago with sciatica, right side M54.41 [facility] [id number] [place] [address] 95696- 5876 Sep, Lumbago with sciatica, right side M54.41 [facility] [id number] [place] [address] 01161- 4476 Sep, Lumbago with sciatica, right side M54.41 [facility] [id number] [place] [address] 58080- 5646 Aug, Cervical spinal cord injury, sequela S14.109S and Lumbago with sciatica, right side M54.41 [facility] [id number] [place] [address] 16182- 3296 Aug, Neuropathy G62.9 [facility] [id number] [place] [address] 87739- 0776 Jul, Neuropathy G62.9 [facility] [id number] [place] [address] 78636- 7090 June, Lumbago with sciatica, right side M54.41 ; Neuropathy G62.9 and Arthritis M19.90 [facility] [address] [facility] [id number] [place] [address]- 0519 May, Neuropathy G62.9 ; Lumbago with sciatica, right side M54.41 and Cervical spinal cord injury, initial encounter S14.109A IMMUNIZATIONS No Known Immunizations SOCIAL HISTORY Never Assessed REASON FOR VISIT f/u- was in PT at [facility] but he missed some appts due to his transportation , wants to know if there is an option for home PT- Zia Bah RN PLAN OF CARE Activity Details Follow Up 3 Months Reason: VITAL SIGNS Height 5 ft 9 in in 2016-08-21 Weight 127 lbs 2016-08-21 Temperature 97.0 degrees Fahrenheit 2016-08-21 Heart Rate 72 bpm 2016-08-21 Respiratory Rate 16 2016-08-21 BMI 18.75 kg/m2 2016-08-21 Blood pressure systolic 120 mmHg 2016-08-21 Blood pressure diastolic 72 mmHg 2016-08-21 MEDICATIONS Medication Instructions Dosage Frequency Start Date End Date Duration Status Neurontin 600 MG TAKE ONE TABLET BY MOUTH THREE TIMES DAILY 30 Active Diclofenac Sodium 75 MG Orally Twice a day 1 tablet with food or milk 12h June, Oct, 30 day(s) Active Hydrocodone-Acetaminophen 7.5-325 MG Orally 4 times a day 1 tablet as needed 6h 11 Aug, 2016 28 days Active Cymbalta 30 MG Orally Twice a day 1 capsule 12h June, 30 day(s) Active Dulcolax 10 mg Rectal PRN 1 suppository as needed Active Colace 100 MG Orally Once a day 1 capsule as needed 24h Active Baclofen 10 MG TAKE ONE TABLET BY MOUTH THREE TIMES DAILY WITH FOOD OR MILK NEEDED FOR MUSCLE SPASM 30 Active RESULTS No Results PROCEDURES No Known procedures INSTRUCTIONS MEDICATIONS ADMINISTERED No Known Medications MEDICAL (GENERAL) HISTORY Type Description Date Medical History Cervical fx of 5-6 Medical History Central cord syndrome Surgical History Partial fusion of C2-3 04/2016 Hospitalization [facility] 04/2016
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
--- OUTSIDE RECORDS SUMMARY | 2017-11-24 12:44 | XMS REPORT ---
Author Author Latrice Chris Organization [facility] Address [address] [place], [place] [address] Care Team Providers Care In Process Inspector Name Role Phone Latrice Chris Unavailable PROBLEMS Type Condition ICD9-CM Code [id number] Code Onset Dates Condition Status SNOMED Code Problem Cervicalgia M54.2 Active 61614615 Problem Impacted cerumen, bilateral H61.23 Active 86370336 ALLERGIES No Information SOCIAL HISTORY Never Assessed PLAN OF CARE VITAL SIGNS MEDICATIONS Unknown Medications RESULTS No Results PROCEDURES No Known procedures IMMUNIZATIONS No Known Immunizations MEDICAL (GENERAL) HISTORY [...]
--- OUTSIDE RECORDS SUMMARY | 2017-11-24 12:44 | XMS REPORT ---
Author Author Latrice Chris Organization [facility] Address [address] [place], [place] [address] Care Team Providers Care Oim Consultant Name Role Phone Latrice Chris Unavailable PROBLEMS Type Condition ICD9-CM Code SKI22-PP Code Onset Dates Condition Status SNOMED Code Problem Cervicalgia M54.2 Active 33261360 Problem Impacted cerumen, bilateral H61.23 Active 18989118 ALLERGIES No Information SOCIAL HISTORY Never Assessed [...]
--- OUTSIDE RECORDS SUMMARY | 2017-11-24 12:44 | XMS REPORT ---
Author Author CHASITY VIEYRA Organization [facility] Address [address] [place] [address] Care Team Providers Care Car Unloader Name Role Phone CHASITY VIEYRA Unavailable PROBLEMS Type Condition ICD9-CM Code ZVP01-VI Code Onset Dates Condition Status SNOMED Code Problem Cervical spinal cord injury, sequela S14.109S Active 551207105 Problem Arthritis M19.90 Active 0934071 Problem Lumbago with sciatica, right side M54.41 Active 709096475 Problem Neuropathy G62.9 Active 324914212 ALLERGIES No Information ENCOUNTERS Encounter Location Date Diagnosis [place] [address] [address] May, [place] [address] [place] [id number] [place] [address] 13243- 8520 Apr, [place] [address] 41663- 7949 Apr, Onychomycosis B35.1 and Nail dystrophy L60.3 [place] [address] [place] [id number] [place] [address] 91705- 6376 Apr, Cervical spinal cord injury, sequela S14.109S [place] [address] 30[address]- 8416 Apr, [facility] current use of opiate analgesic Z79.891 ; Cervical spinal cord injury, sequela S14.109S ; Neuropathy G62.9 and Onychomycosis B35.1 [place] [address] [place] [id number] [place] [address] 03089- 5208 Mar, Onychomycosis B35.1 [place] [address] [place] [id number] [place] [address] 55674- 8663 Mar, Cervical spinal cord injury, sequela S14.109S [facility] [address] [place] [id number] [place] [address] 94108 2546 Feb, Cervical spinal cord injury, sequela S14.109S [facility] [address] [place] [id number] [place] [address] 86493 2546 Jan, Lumbago with sciatica, right side M54.41 [facility] [address] [place] [id number] [place] [address] 11526- 2546 Dec, Cervical spinal cord injury, sequela S14.109S and Reactive depression F32.9 [facility] [address] [place] 585282 2546 Dec, Lumbago with sciatica, right side M54.41 [facility] [address] [place] [id number] [place] [address] 42544 2546 Nov, Lumbago with sciatica, right side M54.41 [facility] [address] [place] [id number] [place] [address] 74711 2546 Oct, Lumbago with sciatica, right side M54.41 [facility] [address] [place] [id number] [place] [address] 15204 2546 Sep, Lumbago with sciatica, right side M54.41 [facility] [address] [place] [id number] [place] [address] 92232 2546 Sep, Lumbago with sciatica, right side M54.41 [facility] [address] [place] [id number] [place] [address] 21258 2546 Aug, Cervical spinal cord injury, sequela S14.109S and Lumbago with sciatica, right side M54.41 [facility] [address] [place] [id number] [place] [address] 08854 2546 Aug, Neuropathy G62.9 [facility] [address] [place] [id number] [place] [address] 59910466- 9578 Jul, Neuropathy G62.9 [facility] [address] [facility] [id number] [place] [address] June, Lumbago with sciatica, right side M54.41 ; Neuropathy G62.9 and Arthritis M19.90 [facility] [address] [facility] [id number] [place] [address] May, Neuropathy G62.9 ; Lumbago with sciatica, right side M54.41 and Cervical spinal cord injury, initial encounter S14.109A IMMUNIZATIONS No Known Immunizations SOCIAL HISTORY Never Assessed REASON FOR VISIT Hydrocodone 12/08 PLAN OF CARE VITAL SIGNS MEDICATIONS Medication Instructions Dosage Frequency Start Date End Date Duration Status Hydrocodone-Acetaminophen 7.5-325 MG Orally 3 times a day 1 tablet as needed 8h 30 Nov, 2016 28 days Active RESULTS No Results PROCEDURES No Known procedures INSTRUCTIONS MEDICATIONS ADMINISTERED No Known Medications MEDICAL (GENERAL) HISTORY Type Description Date Medical History Cervical fx of 5-6 Medical History Central cord syndrome Surgical History Partial fusion of C2-3 04/2016 [facility]
--- OUTSIDE RECORDS SUMMARY | 2017-11-24 12:44 | XMS REPORT ---
Author Author Latrice Chris Organization [facility] Address [address], [place] [address] Care Team Providers Care Induction Coordination Engineer Name Role Phone Latrice Chris Unavailable PROBLEMS Type Condition ICD9-CM Code HNQ28-DI Code Onset Dates Condition Status SNOMED Code Problem Cervicalgia M54.2 Active 52445183 Problem Impacted cerumen, bilateral H61.23 Active 32003852 ALLERGIES No Information SOCIAL HISTORY Never Assessed [...]
--- OUTSIDE RECORDS SUMMARY | 2017-11-24 12:44 | XMS REPORT ---
Author Author RONNA MANN Organization [facility] Address [address] [place] [address] Care Team Providers Care Dragline Operator Helper Name Role Phone RONNA MANN Unavailable PROBLEMS Type Condition ICD9-CM Code GDS46-VC Code Onset Dates Condition Status SNOMED Code Problem Cervical spinal cord injury, sequela S14.109S Active 163245081 Problem Arthritis M19.90 Active 2599955 Problem Lumbago with sciatica, right side M54.41 Active 660073430 Problem Neuropathy G62.9 Active 607251645 ALLERGIES No Information ENCOUNTERS Encounter Location Date Diagnosis [place] [address] [address]- 1716 May, [place] [address] 39410- 1359 Apr, [place] [address] 56695- 9657 Apr, Onychomycosis B35.1 and Nail dystrophy L60.3 [place] [address] [place] [id number] [place] [address] 35109- 3768 Apr, Cervical spinal cord injury, sequela S14.109S [place] [address] 81967- 3276 Apr, half-way current use of opiate analgesic Z79.891 ; Cervical spinal cord injury, sequela S14.109S ; Neuropathy G62.9 and Onychomycosis B35.1 [place] [address] [place] [id number] [place] [address] 46029- 5795 Mar, Onychomycosis B35.1 [place] [address] 32924- 2846 Mar, Cervical spinal cord injury, sequela S14.109S [facility] [address] [place] [id number] [place] [address] 99815- 6816 Feb, Cervical spinal cord injury, sequela S14.109S [facility] [address] [place] [id number] [place] [address] 88216- 5316 Jan, Lumbago with sciatica, right side M54.41 [facility] [address] 36781 2546 Dec, Cervical spinal cord injury, sequela S14.109S and Reactive depression F32.9 [facility] [address] 48732- 8976 Dec, Lumbago with sciatica, right side M54.41 [facility] [address] [place] [id number] [place] [address] 24706- 4686 Nov, Lumbago with sciatica, right side M54.41 [facility] [address] [place] [id number] [place] [address] 28372- 6176 Oct, Lumbago with sciatica, right side M54.41 [facility] [address] [place] [id number] [place] [address] 33578- 7276 Sep, Lumbago with sciatica, right side M54.41 [facility] [address] [place] [id number] [place] [address] 99929- 6016 Sep, Lumbago with sciatica, right side M54.41 [facility] [address] [place] [id number] [place] [address] 76457- 5146 Aug, Cervical spinal cord injury, sequela S14.109S and Lumbago with sciatica, right side M54.41 [facility] [address] [place] [id number] [place] [address] 01460- 3586 Aug, Neuropathy G62.9 [facility] [address] 99973304- 5090 Jul, Neuropathy G62.9 [facility] [address] [facility] [id number] [place] June, Lumbago with sciatica, right side M54.41 ; Neuropathy G62.9 and Arthritis M19.90 [facility] [address] [facility] [id number] [place] [address]- 6[address] May, Neuropathy G62.9 ; Lumbago with sciatica, right side M54.41 and Cervical spinal cord injury, initial encounter S14.109A IMMUNIZATIONS No Known Immunizations SOCIAL HISTORY Never Assessed REASON FOR VISIT Hydrocodone- 11/07 PLAN OF CARE VITAL SIGNS MEDICATIONS Medication Instructions Dosage Frequency Start Date End Date Duration Status Hydrocodone-Acetaminophen 7.5-325 MG Orally 3 times a day 1 tablet as needed 8h Nov, 28 days Active RESULTS No Results PROCEDURES No Known procedures INSTRUCTIONS MEDICATIONS ADMINISTERED No Known Medications MEDICAL (GENERAL) HISTORY Type Description Date Medical History Cervical fx of 5-6 Medical History Central cord syndrome Surgical History Partial fusion of C2-3 04/2016 Hospitalization History [facility] 04/2016
--- OUTSIDE RECORDS SUMMARY | 2017-11-24 12:44 | XMS REPORT ---
Author Author CHASITY VIEYRA Organization [facility] Address [address] [place] [address] Care Team Providers Care Postdoctoral Fellow Name Role Phone CHASITY VIEYRA Unavailable PROBLEMS Type Condition ICD9-CM Code TYA51-YY Code Onset Dates Condition Status SNOMED Code Problem Cervical spinal cord injury, sequela S14.109S Active 463898492 Problem Arthritis M19.90 Active 6998540 Problem Lumbago with sciatica, right side M54.41 Active 780641252 Problem Neuropathy G62.9 Active 020592124 ALLERGIES No Information ENCOUNTERS Encounter Location Date Diagnosis [place] [address] [address]- [address] Jul, Neuropathy G62.9 [place] [address] 12010- 2607 June, [place] [address] 57359- 9132 May, [place] [address] [place] [id number] [place] [address] 94833- 8119 Apr, [place] [address] 13744- 0642 Apr, Onychomycosis B35.1 and Nail dystrophy L60.3 [place] [address] 44414- 6973 15 Apr, 2017 Cervical spinal cord injury, sequela S14.109S [place] [address] 30180- 1696 12 Apr, 2017 retirement current use of opiate analgesic Z79.891 ; Cervical spinal cord injury, sequela S14.109S ; Neuropathy G62.9 and Onychomycosis B35.1 [facility] [address] [place] [id number] [place] [address] 52129- 4906 Mar, Onychomycosis B35.1 [facility] [address] [place] [id number] [place] [address] 2546 Mar, Cervical spinal cord injury, sequela S14.109S [facility] [address] [place] [id number] [place] [address] 6186 Feb, Cervical spinal cord injury, sequela S14.109S [facility] [address] [place] [id number] [place] [address] 47119- 2866 Jan, Lumbago with sciatica, right side M54.41 [facility] [address] [place] [id number] [place] [address] 92571- 0626 Dec, Cervical spinal cord injury, sequela S14.109S and Reactive depression F32.9 [place] [address] [place] [id number] [place] [address] 64690- 8711 Dec, Lumbago with sciatica, right side M54.41 [facility] [address] [place] [id number] [place] [address] 033670- 1676 Nov, Lumbago with sciatica, right side M54.41 [facility] [address] [place] [id number] [place] [address] 33909- 8016 Oct, Lumbago with sciatica, right side M54.41 [facility] [address] [place] [id number] [place] [address] 76030- 5106 Sep, Lumbago with sciatica, right side M54.41 [facility] [address] [place] [id number] [place] [address] 25330- 6816 Sep, Lumbago with sciatica, right side M54.41 [facility] [address] [place] [id number] [place] [address] 53963- 7796 Aug, Cervical spinal cord injury, sequela S14.109S and Lumbago with sciatica, right side M54.41 [facility] [address] [facility] [id number] [place] [address]- 4463 Aug, Neuropathy G62.9 [place] [address] [place] [id number] [address]- 9452 Jul, Neuropathy G62.9 [place] [address] [place] [id number] [address]- 9972 June, Lumbago with sciatica, right side M54.41 ; Neuropathy G62.9 and Arthritis M19.90 [place] [address] [facility] [id number] [place] [address]- 8[address] May, Neuropathy G62.9 ; Lumbago with sciatica, right side M54.41 and Cervical spinal cord injury, initial encounter S14.109A IMMUNIZATIONS No Known Immunizations SOCIAL HISTORY Never Assessed REASON FOR VISIT Hydrocodone 03/02 PLAN OF CARE VITAL SIGNS MEDICATIONS Medication Instructions Dosage Frequency Start Date End Date Duration Status Neurontin 600 MG TAKE ONE TABLET BY MOUTH THREE TIMES DAILY 90 Active Baclofen 10 MG TAKE ONE TABLET BY MOUTH THREE TIMES DAILY WITH FOOD OR MILK NEEDED FOR MUSCLE SPASM 90 Active Hydrocodone-Acetaminophen 7.5-325 MG Orally 3 times a day 1 tablet as needed Feb, 28 days Active RESULTS No Results PROCEDURES No Known procedures INSTRUCTIONS MEDICATIONS ADMINISTERED No Known Medications MEDICAL (GENERAL) HISTORY Type Description Date Medical History Cervical fx of 5-6 Medical History Central cord syndrome Surgical History Partial fusion of C2-3 04/2016 [facility]
--- OUTSIDE RECORDS SUMMARY | 2017-11-24 12:44 | XMS REPORT ---
Author Author CHASITY VIEYRA Organization [facility] Address [address] [place] [address] Care Team Providers Care Automotive Airconditioning Mechanic Name Role Phone CHASITY VIEYRA Unavailable PROBLEMS Type Condition ICD9-CM Code ZCU08-NZ Code Onset Dates Condition Status SNOMED Code Problem Cervical spinal cord injury, sequela S14.109S Active 344406436 Problem Arthritis M19.90 Active 9407144 Problem Lumbago with sciatica, right side M54.41 Active 571264960 Problem Neuropathy G62.9 Active 751038458 ALLERGIES No Information ENCOUNTERS Encounter Location Date Diagnosis [place] [address] [address]- 3371 Jul, Neuropathy G62.9 [place] [address] 53951- 3937 June, [place] [address] 56009- 3817 May, [place] [address] [place] [id number] [place] [address] 31909- 9685 Apr, [place] [address] 99280- 3888 Apr, Onychomycosis B35.1 and Nail dystrophy L60.3 [place] [address] 77185- 7028 15 Apr, 2017 Cervical spinal cord injury, sequela S14.109S [place] [address] 30465- 6716 12 Apr, 2017 long-term current use of opiate analgesic Z79.891 ; Cervical spinal cord injury, sequela S14.109S ; Neuropathy G62.9 and Onychomycosis B35.1 [facility] [place] [address] [place] [id number] [place] [address] 82868- 5386 Mar, Onychomycosis B35.1 [facility] [place] [address] [place] [id number] [place] [address] 2546 Mar, Cervical spinal cord injury, sequela S14.109S [facility] [place] [address] [place] [id number] [place] [address] 1396 Feb, Cervical spinal cord injury, sequela S14.109S [facility] [place] [address] [place] [id number] [place] [address] 59330- 1646 Jan, Lumbago with sciatica, right side M54.41 [facility] [place] [address] [place] [id number] [place] [address] 26651- 9406 Dec, Cervical spinal cord injury, sequela S14.109S and Reactive depression F32.9 [place] [address] [place] [id number] [place] [address] 55147- 8683 Dec, Lumbago with sciatica, right side M54.41 [facility] [place] [address] [place] [id number] [place] [address] 357095- 1836 Nov, Lumbago with sciatica, right side M54.41 [facility] [place] [address] [place] [id number] [place] [address] 07970- 6756 Oct, Lumbago with sciatica, right side M54.41 [facility] [place] [address] [place] [id number] [place] [address] 25322- 9666 Sep, Lumbago with sciatica, right side M54.41 [facility] [place] [address] [place] [id number] [place] [address] 73264- 9696 Sep, Lumbago with sciatica, right side M54.41 [facility] [place] [address] [place] [id number] [place] [address] 16560- 9016 Aug, Cervical spinal cord injury, sequela S14.109S and Lumbago with sciatica, right side M54.41 [place] [address] [facility] [id number] [place] [address] Aug, Neuropathy G62.9 [place] [address] [id number], [place] [address]- 4077 Jul, Neuropathy G62.9 [place] [address] [id number], [place] [address]- 2124 June, Lumbago with sciatica, right side M54.41 ; Neuropathy G62.9 and Arthritis M19.90 [place] [address] [facility] [id number] [address]- 9483 May, Neuropathy G62.9 ; Lumbago with sciatica, right side M54.41 and Cervical spinal cord injury, initial encounter S14.109A IMMUNIZATIONS No Known Immunizations SOCIAL HISTORY Never Assessed REASON FOR VISIT Hydrocodone 02/02 PLAN OF CARE VITAL SIGNS MEDICATIONS Medication Instructions Dosage Frequency Start Date End Date Duration Status Hydrocodone-Acetaminophen 7.5-325 MG Orally 3 times a day 1 tablet as needed Jan, 28 days Active RESULTS No Results PROCEDURES No Known procedures INSTRUCTIONS MEDICATIONS ADMINISTERED No Known Medications MEDICAL (GENERAL) HISTORY Type Description Date Medical History Cervical fx of 5-6 Medical History Central cord syndrome Surgical History Partial fusion of C2-3 04/2016 Hospitalization [facility] [place]
--- OUTSIDE RECORDS SUMMARY | 2017-11-24 12:44 | XMS REPORT ---
Author Author CHASITY VIEYRA Organization [facility] Address [address] [place] [address] Care Team Providers Care Manager Chemistry Name Role Phone CHASITY VIEYRA Unavailable PROBLEMS Type Condition ICD9-CM Code SFJ80-JR Code Onset Dates Condition Status SNOMED Code Problem Cervical spinal cord injury, sequela S14.109S Active 590942869 Problem Arthritis M19.90 Active 8327890 Problem Lumbago with sciatica, right side M54.41 Active 088377931 Problem Neuropathy G62.9 Active 724323594 ALLERGIES No Information ENCOUNTERS Encounter Location Date Diagnosis [place] [address] [place] [id number] [place] [address] 97683- 1258 Apr, [place] [address] [place] [id number] [place] [address] 00404- 6808 Apr, Onychomycosis B35.1 and Nail dystrophy L60.3 [place] [address] [place] [id number] [place] [address] 33850- 4155 Apr, Cervical spinal cord injury, sequela S14.109S [place] [address] [place] [id number] [place] [address] 67032- 0004 Apr, long-term current use of opiate analgesic Z79.891 ; Cervical spinal cord injury, sequela S14.109S ; Neuropathy G62.9 and Onychomycosis B35.1 [place] [address] [place] [id number] [place] [address] 93945- 1558 Mar, Onychomycosis B35.1 [place] [address] [place] [id number] [place] [address] 28748- 5675 Mar, Cervical spinal cord injury, sequela S14.109S [place] [address] [place] [address]- 7230 Feb, Cervical spinal cord injury, sequela S14.109S [facility] [address] [place] [id number] [place] [address] 83872- 3346 Jan, Lumbago with sciatica, right side M54.41 [facility] [address] [place] [id number] [place] [address] 19038- 7096 Dec, Cervical spinal cord injury, sequela S14.109S and Reactive depression F32.9 [facility] [address] [place] [id number] [place] [address] 04333- 0486 Dec, Lumbago with sciatica, right side M54.41 [facility] [address] [place] [id number] [place] [address] 41755- 8446 Nov, Lumbago with sciatica, right side M54.41 [facility] [address] [place] [id number] [place] [address] 69679- 3886 Oct, Lumbago with sciatica, right side M54.41 [facility] [address] [place] [id number] [place] [address] 44733- 9576 Sep, Lumbago with sciatica, right side M54.41 [facility] [address] [place] [id number] [place] [address] 04697- 1669 Sep, Lumbago with sciatica, right side M54.41 [facility] [address] [place] [id number] [place] [address] 70927- 3866 Aug, Cervical spinal cord injury, sequela S14.109S and Lumbago with sciatica, right side M54.41 [facility] [address] [place] [id number] [place] [address] 71566- 9796 Aug, Neuropathy G62.9 [facility] [address] [place] [id number] [place] [address] 73363- 0976 Jul, Neuropathy G62.9 [facility] [address] [place] [id number] [place] [address] 57141- 9176 June, Lumbago with sciatica, right side M54.41 ; Neuropathy G62.9 and Arthritis M19.90 [facility] [address] [facility] [id number] [place] [address]- 0634 May, Neuropathy G62.9 ; Lumbago with sciatica, right side M54.41 and Cervical spinal cord injury, initial encounter S14.109A IMMUNIZATIONS No Known Immunizations SOCIAL HISTORY Never Assessed REASON FOR VISIT Hydrocodone 09/15 PLAN OF CARE VITAL SIGNS MEDICATIONS Medication Instructions Dosage Frequency Start Date End Date Duration Status Hydrocodone-Acetaminophen 7.5-325 MG Orally 3 times a day 1 tablet as needed 8h Sep, 28 days Active RESULTS No Results PROCEDURES No Known procedures INSTRUCTIONS MEDICATIONS ADMINISTERED No Known Medications MEDICAL (GENERAL) HISTORY Type Description Date Medical History Cervical fx of 5-6 Medical History Central cord syndrome Surgical History Partial fusion of C2-3 04/2016 Hospitalization History [facility] 04/2016
--- OUTSIDE RECORDS SUMMARY | 2017-11-24 12:45 | XMS REPORT | Continuity of Care Document ---
Author Author Sandra [facility]. [facility] Organization [facility]. Hospital Address Unknown Phone Unavailable Allergies Active Description Code Type Severity Reaction Onset Reported/Identified Relationship to Patient Clinical Status Yes No Known Drug Allergies [id number] Drug Allergy Unknown N/A 04/23/2016 Yes No Known Allergies NKMA N/A N/A 09/16/2016 Medications Medication Packaging Start Date Stop Date Route Dosage Sig HYDROcodone-acetaminophen([place] 5 mg-325 mg oral tablet) 2 tabs 09/16/2016 09/16/2016 Oral 2 tabs, Oral, q4hr, PRN: Pain Moderate (4-6 ) HYDROcodone-acetaminophen([place] 7.5 mg-325 mg oral tablet) tabs 03/01/2017 Oral tabs, Oral, q6hr, 0 Refill(s) gabapentin(gabapentin) 2017 Oral Oral, 0 Refill(s) baclofen(baclofen) 03/01/2017 Oral Oral, TID, 0 Refill(s) promethazine-codeine(promethazine-codeine 6.25 mg-10 mg/5 mL oral syrup) 2.5 mL 03/01/2017 Oral 2.5 mL, Oral, q4hr, not to exceed 30 mL/24 hours, PRN: as needed for cough, 60 mL, 0 Refill(s) predniSONE(predniSONE 20 mg oral tablet) 2 tabs 03/01/2017 03/06/2017 Oral 40 mg 40 mg=2 tabs, Oral, Daily, for 5 days, 10 tabs, 0 Refill(s) predniSONE(predniSONE) 2 tabs 03/0103/01/2017 Oral 40 mg 40 mg=2 tabs, Oral, Once ketorolac(Toradol) 1 mL 03/01/2017 03/01/2017 IV Push 30 mg 30 mg=1 mL, IV Push, Once Problems Date Dx Coded Attending Type Code Diagnosis Diagnosed By 01/08/1213 FLORENTINO HERNANDEZ MD (DDU) Ot Z02.71 ENCOUNTER FOR DISABILITY DETERMINATION 04/23/2016 BUZZ JIMENEZ MD Ot F10.129 ALCOHOL ABUSE WITH INTOXICATION, UNSPECI 04/23/2016 BUZZ JIMENEZ MD Ot M47.812 SPONDYLOSIS W/O MYELOPATHY OR RADICULOPA 04/23/2016 BUZZ JIMENEZ MD Ot R29.898 OTH SYMPTOMS AND SIGNS INVOLVING THE MUS 04/23/2016 BUZZ JIMENEZ MD Ot S12.401A UNSP NONDISP FX OF FIFTH CERVICAL VERTEB 04/23/2016 BUZZ JIMENEZ MD Ot T68.XXXA HYPOTHERMIA, INITIAL ENCOUNTER 04/23/2016 BUZZ JIMENEZ MD Ot T79.6XXA TRAUMATIC ISCHEMIA OF MUSCLE, INITIAL EN 04/23/2016 BUZZ JIMENEZ MD Ot W17.89XA OTHER FALL FROM ONE LEVEL TO ANOTHER, IN 04/23/2016 BUZZ JIMENEZ MD Ot Y90.6 BLOOD ALCOHOL LEVEL OF 120-199 MG/100 ML 04/23/2016 BUZZ JIMENEZ MD Ot Y99.8 OTHER EXTERNAL CAUSE STATUS 04/23/2016 BUZZ JIMENEZ MD Ot F10.129 ALCOHOL ABUSE WITH INTOXICATION, UNSPECI 04/23/2016 BUZZ JIMENEZ MD, Ot M47.812 SPONDYLOSIS W/O MYELOPATHY OR RADICULOPA 04/23/2016 BUZZ JIMENEZ MD Ot R29.898 OTH SYMPTOMS AND SIGNS INVOLVING THE MUS 04/23/2016 BUZZ JIMENEZ MD Ot S12.401A UNSP NONDISP FX OF FIFTH CERVICAL VERTEB 04/23/2016 BUZZ JIMENEZ MD Ot T68.XXXA HYPOTHERMIA, INITIAL ENCOUNTER 04/23/2016 BUZZ JIMENEZ MD Ot T79.6XXA TRAUMATIC ISCHEMIA OF MUSCLE, INITIAL EN 04/23/2016 BUZZ JIMENEZ MD Ot W17.89XA OTHER FALL FROM ONE LEVEL TO ANOTHER, IN 04/23/2016 BUZZ JIMENEZ MD Ot Y90.6 BLOOD ALCOHOL LEVEL OF 120-199 MG/100 ML 04/23/2016 BUZZ JIMENEZ MD Ot Y99.8 OTHER EXTERNAL CAUSE STATUS 04/24/2016 BUZZ JIMENEZ MD Ot F10.129 ALCOHOL ABUSE WITH INTOXICATION, UNSPECI 04/24/2016 BUZZ JIMENEZ MD, Ot M47.812 SPONDYLOSIS W/O MYELOPATHY OR RADICULOPA 04/24/2016 BUZZ JIMENEZ MD Ot R29.898 OTH SYMPTOMS AND SIGNS INVOLVING THE MUS 04/24/2016 BUZZ JIMENEZ MD, Ot S12.401A UNSP NONDISP FX OF FIFTH CERVICAL VERTEB 04/24/2016 BUZZ JIMENEZ MD, Ot T68.XXXA HYPOTHERMIA, INITIAL ENCOUNTER 04/24/2016 BUZZ JIMENEZ MD, Ot T79.6XXA TRAUMATIC ISCHEMIA OF MUSCLE, INITIAL EN 04/24/2016 BUZZ JIMENEZ MD, Ot W17.89XA OTHER FALL FROM ONE LEVEL TO ANOTHER, IN 04/24/2016 BUZZ JIMENEZ MD Ot Y90.6 BLOOD ALCOHOL LEVEL OF 120-199 MG/100 ML 04/24/2016 BUZZ JIMENEZ MD Ot Y99.8 OTHER EXTERNAL CAUSE STATUS 05/06/2016 PRINCESS TURNER MD Ot F17.210 NICOTINE DEPENDENCE, CIGARETTES, UNCOMPL 05/06/2016 PRINCESS TURNER MD Ot G82.54 QUADRIPLEGIA, C5-C7 INCOMPLETE 05/06/2016 PRINCESS TURNER MD Ot K59.00 CONSTIPATION, UNSPECIFIED 05/06/2016 PRINCESS TURNER MD Ot K59.2 NEUROGENIC BOWEL, NOT ELSEWHERE CLASSIFI 05/06/2016 PRINCESS TURNER MD Ot S12.400D UNSP DISP FX OF FIFTH CERVCAL VERT, SUBS 05/06/2016 PRINCESS TURNER MD Ot S14.125D CENTRAL CORD SYNDROME AT C5, SUBS 05/06/2016 PRINCESS TURNER MD Ot Z98.1 ARTHRODESIS STATUS 05/08/2016 PRINCESS TURNER MD Ot F17.210 NICOTINE DEPENDENCE, CIGARETTES, UNCOMPL 05/08/2016 PRINCESS TURNER MD Ot G82.54 QUADRIPLEGIA, C5-C7 INCOMPLETE 05/08/2016 TURNER MD, PRINCESS E Ot K59.00 CONSTIPATION, UNSPECIFIED 05/08/2016 JOHNNY TAYLOR PRINCESS E Ot K59.2 NEUROGENIC BOWEL, NOT ELSEWHERE CLASSIFI 05/08/2016 FANNY TURNER MDIC E Ot S12.400D UNSP DISP FX OF FIFTH CERVCAL VERT, SUBS 05/08/2016 PRINCESS TURNER MD E Ot S14.125D CENTRAL CORD SYNDROME AT C5, SUBS 05/08/2016 PRINCESS TURNER MD E Ot Z98.1 ARTHRODESIS STATUS 05/13/2016 PRINCESS TURNER MD E Ot F17.210 NICOTINE DEPENDENCE, CIGARETTES, UNCOMPL 05/13/2016 JOHNNY TAYLOR PRINCESS E Ot G82.54 QUADRIPLEGIA, C5-C7 INCOMPLETE 05/13/2016 FANNY TURNER MDIC E Ot K59.00 CONSTIPATION, UNSPECIFIED 05/13/2016 FANNY TURNER MDIC E Ot K59.2 NEUROGENIC BOWEL, NOT ELSEWHERE CLASSIFI 05/13/2016 PRINCESS TURNER MD E Ot S12.400D UNSP DISP FX OF FIFTH CERVCAL VERT, SUBS 05/13/2016 PRINCESS TURNER MD E Ot S14.125D CENTRAL CORD SYNDROME AT C5, SUBS 05/13/2016 PRINCESS TURNER MD E Ot Z98.1 ARTHRODESIS STATUS 05/15/2016 PRINCESS TURNER MD E Ot F17.210 NICOTINE DEPENDENCE, CIGARETTES, UNCOMPL 05/15/2016 JOHNNY TAYLOR PRINCESS E Ot G82.54 QUADRIPLEGIA, C5-C7 INCOMPLETE 05/15/2016 FANNY TURNER MDIC E Ot K59.00 CONSTIPATION, UNSPECIFIED 05/15/2016 FANNY TURNER MDIC E Ot K59.2 NEUROGENIC BOWEL, NOT ELSEWHERE CLASSIFI 05/15/2016 FANNY TURNER MDIC E Ot S12.400D UNSP DISP FX OF FIFTH CERVCAL VERT, SUBS 05/15/2016 PRINCESS TURNER MD E Ot S14.125D CENTRAL CORD SYNDROME AT C5, SUBS 05/15/2016 PRINCESS TURNER MD E Ot Z98.1 ARTHRODESIS STATUS 05/16/2016 FANNY TURNER MDIC E Ot F17.210 NICOTINE DEPENDENCE, CIGARETTES, UNCOMPL 05/16/2016 JOHNNY TAYLOR PRINCESS E Ot G82.54 QUADRIPLEGIA, C5-C7 INCOMPLETE 05/16/2016 JOHNNY TAYLOR PRINCESS E Ot K59.00 CONSTIPATION, UNSPECIFIED 05/16/2016 JOHNNY TAYLOR, PRINCESS Carrasquillo Ot K59.2 NEUROGENIC BOWEL, NOT ELSEWHERE CLASSIFI 05/16/2016 JOHNNY TAYLOR, PRINCESS Carrasquillo Ot S12.400D UNSP DISP FX OF FIFTH CERVCAL VERT, SUBS 05/16/2016 JOHNNY TAYLOR, PRINCESS Carrasquillo Ot S14.125D CENTRAL CORD SYNDROME AT C5, SUBS 05/16/2016 JOHNNY TAYLOR, PRINCESS Carrasquillo Ot Z98.1 ARTHRODESIS STATUS 06/05/2016 JARRELL TAYLOR, CHASITY Chirinos Ot G62.9 POLYNEUROPATHY, UNSPECIFIED 06/13/2016 JARRELL TAYLOR, CHASITY Chirinos Ot G62.9 POLYNEUROPATHY, UNSPECIFIED 07/01/2016 JARRELL TAYLOR, CHASITY Chirinos Ot G62.9 POLYNEUROPATHY, UNSPECIFIED 09/02/2016 JARRELL TAYLOR, CHASITY Chirinos Ot G62.9 POLYNEUROPATHY, UNSPECIFIED 09/18/2016 Emeli,, Hunter Final F17.210 Nicotine dependence, cigarettes, uncomplicated 09/18/2016 Emeli,, Hunter Final M48.02 Spinal stenosis, cervical region 09/18/2016 Emeli,, Hunter Final M50.21 Other cervical disc displacement, high cervical region 09/18/2016 Emeli,, Hunter Final M50.31 Other cervical disc degeneration, high cervical region 09/18/2016 Emeli,, Hunter Reason M54.2 Cervicalgia 09/18/2016 Emeli,, Hunter Final Z98.1 Arthrodesis status 10/14/2016 JARRELL TAYLOR, CHASITY Chirinos Ot G62.9 POLYNEUROPATHY, UNSPECIFIED 10/31/2016 DAVID TAYLOR, FLORENTINO Caal ([facility]) Ot Z02.71 ENCOUNTER FOR DISABILITY DETERMINATION 03/03/2017 Landaverde Jacob Final F17.210 Nicotine dependence, cigarettes, uncomplicated 03/03/2017 Landaverde Jacob Final G43.909 Migraine, unspecified, not intractable, without status migrainosus 03/03/2017 Landaverde Jacob Final J11.1 Influenza due to unidentified influenza virus with other respiratory manife 03/03/2017 Landaverde Jacob Reason R05 Cough 03/03/2017 Landaverde Jacob Final R52 Pain, unspecified Procedures There is no data. Results Test Result Range Complete blood count (CBC) with automated white blood cell (WBC) differential - 04/23/16 06:00 Blood leukocytes automated count (number/volume) 11.9 10*3/uL 4.3-11.0 Blood erythrocytes automated count (number/volume) 5.02 10*6/uL 4.35-5.85 Venous blood hemoglobin measurement (mass/volume) 15.9 g/dL 13.3-17.7 Blood hematocrit (volume fraction) 45 % 40-54 Automated erythrocyte mean corpuscular volume 89 [foz_us] 80-99 Automated erythrocyte mean corpuscular hemoglobin (mass per erythrocyte) 32 pg 25-34 Automated erythrocyte mean corpuscular hemoglobin concentration measurement ( mass/volume) 36 g/dL 32-36 Automated erythrocyte distribution width ratio 12.1 % 10.0-14.5 Automated blood platelet count (count/volume) 222 10*3/uL 130-400 Automated blood platelet mean volume measurement 8.8 [foz_us] 7.4-10.4 Automated blood neutrophils/100 leukocytes 90 % 42-75 Automated blood lymphocytes/100 leukocytes 6 % 12-44 Blood monocytes/100 leukocytes 5 % 0-12 Automated blood eosinophils/100 leukocytes 0 % 0-10 Automated blood basophils/100 leukocytes 0 % 0-10 Blood neutrophils automated count (number/volume) 10.7 10*3 1.8-7.8 Blood lymphocytes automated count (number/volume) 0.7 10*3 1.0-4.0 Blood monocytes automated count (number/volume) 0.5 10*3 0.0-1.0 Automated eosinophil count 0.0 10*3/uL 0.0-0.3 Automated blood basophil count (count/volume) 0.0 10*3/uL 0.0-0.1 Blood manual differential performed detection - 04/23/16 06:00 Blood monocytes/100 leukocytes 4 % NRG Manual blood segmented neutrophils/100 leukocytes 90 % NRG Blood band neutrophils/100 leukocytes 0 % NRG Manual blood lymphocytes/100 leukocytes 6 % NRG Manual eosinophils/100 leukocytes in nose 0 % NRG Manual blood basophils/100 leukocytes 0 % NRG Blood poikilocytosis detection by light microscopy [facility] Comprehensive metabolic panel - 04/23/16 06:00 Serum or plasma sodium measurement (moles/volume) 140 mmol/L 135-145 Serum or plasma potassium measurement (moles/volume) 4.0 mmol/L 3.6-5.0 Serum or plasma chloride measurement (moles/volume) 107 mmol/L 98-107 Carbon dioxide 20 mmol/L 21-32 Serum or plasma anion gap determination (moles/volume) 13 mmol/L 5-14 Serum or plasma urea nitrogen measurement (mass/volume) 13 mg/dL 7-18 Serum or plasma creatinine measurement (mass/volume) 0.76 mg/dL 0.60-1.30 Serum or plasma urea nitrogen/creatinine mass ratio 17 NRG Serum or plasma creatinine measurement with calculation of estimated glomerular filtration rate > NRG Serum or plasma glucose measurement (mass/volume) 113 mg/dL 70-105 Serum or plasma calcium measurement (mass/volume) 9.0 mg/dL 8.5-10.1 Serum or plasma total bilirubin measurement (mass/volume) 0.4 mg/dL 0.1-1.0 Serum or plasma alkaline phosphatase measurement (enzymatic activity/volume) 66 U/L 40-136 Serum or plasma aspartate aminotransferase measurement (enzymatic activity/ volume) 31 U/L 5-34 Serum or plasma alanine aminotransferase measurement (enzymatic activity/volume ) 20 U/L 0-55 Serum or plasma protein measurement (mass/volume) 7.3 g/dL 6.4-8.2 Serum or plasma albumin measurement (mass/volume) 4.6 g/dL 3.2-4.5 Magnesium - 04/23/16 06:00 Magnesium 2.3 mg/dL 1.8-2.4 Serum or plasma troponin i.cardiac measurement (mass/volume) - 04/23/16 06:00 Serum or plasma troponin i.cardiac measurement (mass/volume) < ng/ mL <0.30 Serum or plasma salicylates measurement (mass/volume) - 04/23/16 06:00 Serum or plasma salicylates measurement (mass/volume) < mg/dL 5.0-20.0 Serum or plasma acetaminophen measurement (mass/volume) - 04/23/16 06:00 Serum or plasma acetaminophen measurement (mass/volume) < ug/mL 10-30 Serum or plasma ethanol measurement (mass/volume) - 04/23/16 06:00 Serum or plasma ethanol measurement (mass/volume) 128 mg/dL <10 Serum or plasma creatine kinase measurement (enzymatic activity/volume) - 04/23 06:00 Serum or plasma creatine kinase measurement (enzymatic activity/volume) 1229 U/L 30-200 Complete urinalysis with reflex to culture - 04/23/16 07:20 Urine color determination YELLOW NRG Urine clarity determination CLEAR NRG Urine pH measurement by test strip 6 5-9 Specific gravity of urine by test strip 1.020 1.016- 1.022 Urine protein assay by test strip, semi-quantitative 2+ NEGATIVE Urine glucose detection by automated test strip NEGATIVE NEGATIVE Erythrocytes detection in urine sediment by light microscopy NEGATIVE NEGATIVE Urine ketones detection by automated test strip NEGATIVE NEGATIVE Urine nitrite detection by test strip NEGATIVE NEGATIVE Urine total bilirubin detection by test strip NEGATIVE NEGATIVE Urine urobilinogen measurement by automated test strip (mass/volume) NORMAL NORMAL Urine leukocyte esterase detection by dipstick NEGATIVE NEGATIVE Automated urine sediment erythrocyte count by microscopy (number/high power field) NONE NRG Automated urine sediment leukocyte count by microscopy (number/high power field ) RARE NRG Bacteria detection in urine sediment by light microscopy TRACE NRG Crystals detection in urine sediment by light microscopy NONE NRG Casts detection in urine sediment by light microscopy NONE NRG Mucus detection in urine sediment by light microscopy NEGATIVE NRG Complete urinalysis with reflex to culture NO NRG Urine drug screening test - 04/23/16 07:20 Urine phencyclidine detection by screening method NEGATIVE NEGATIVE Urine benzodiazepines detection by screening method NEGATIVE NEGATIVE Urine cocaine detection NEGATIVE NEGATIVE Urine amphetamines detection by screening method NEGATIVE NEGATIVE Urine methamphetamine detection by screening method NEGATIVE NEGATIVE Urine cannabinoids detection by screening method NEGATIVE NEGATIVE Urine opiates detection by screening method NEGATIVE NEGATIVE Urine barbiturates detection NEGATIVE NEGATIVE Screening urine tricyclic antidepressants detection NEGATIVE NEGATIVE Urine methadone detection by screening method NEGATIVE NEGATIVE Urine oxycodone detection NEGATIVE NEGATIVE Urine propoxyphene detection NEGATIVE NEGATIVE Complete blood count (CBC) with automated white blood cell (WBC) differential - 05/01/16 05:38 Blood leukocytes automated count (number/volume) 5.6 10*3/uL 4.3-11.0 Blood erythrocytes automated count (number/volume) 4.48 10*6/uL 4.35-5.85 Venous blood hemoglobin measurement (mass/volume) 14.3 g/dL 13.3-17.7 Blood hematocrit (volume fraction) 41 % 40-54 Automated erythrocyte mean corpuscular volume 91 [foz_us] 80-99 Automated erythrocyte mean corpuscular hemoglobin (mass per erythrocyte) 32 pg 25-34 Automated erythrocyte mean corpuscular hemoglobin concentration measurement ( mass/volume) 35 g/dL 32-36 Automated erythrocyte distribution width ratio 11.8 % 10.0-14.5 Automated blood platelet count (count/volume) 258 10*3/uL 130-400 Automated blood platelet mean volume measurement 8.5 [foz_us] 7.4-10.4 Automated blood neutrophils/100 leukocytes 62 % 42-75 Automated blood lymphocytes/100 leukocytes 24 % 12-44 Blood monocytes/100 leukocytes 12 % 0-12 Automated blood eosinophils/100 leukocytes 2 % 0-10 Automated blood basophils/100 leukocytes 0 % 0-10 Blood neutrophils automated count (number/volume) 3.5 10*3 1.8-7.8 Blood lymphocytes automated count (number/volume) 1.4 10*3 1.0-4.0 Blood monocytes automated count (number/volume) 0.7 10*3 0.0-1.0 Automated eosinophil count 0.1 10*3/uL 0.0-0.3 Automated blood basophil count (count/volume) 0.0 10*3/uL 0.0-0.1 Comprehensive metabolic panel - 05/01/16 05:38 Serum or plasma sodium measurement (moles/volume) 135 mmol/L 135-145 Serum or plasma potassium measurement (moles/volume) 4.6 mmol/L 3.6-5.0 Serum or plasma chloride measurement (moles/volume) 101 mmol/L 98-107 Carbon dioxide 24 mmol/L 21-32 Serum or plasma anion gap determination (moles/volume) 10 mmol/L 5-14 Serum or plasma urea nitrogen measurement (mass/volume) 24 mg/dL 7-18 Serum or plasma creatinine measurement (mass/volume) 0.94 mg/dL 0.60-1.30 Serum or plasma urea nitrogen/creatinine mass ratio 26 NRG Serum or plasma creatinine measurement with calculation of estimated glomerular filtration rate > NRG Serum or plasma glucose measurement (mass/volume) 111 mg/dL 70-105 Serum or plasma calcium measurement (mass/volume) 8.9 mg/dL 8.5-10.1 Serum or plasma total bilirubin measurement (mass/volume) 0.3 mg/dL 0.1-1.0 Serum or plasma alkaline phosphatase measurement (enzymatic activity/volume) 72 U/L 40-136 Serum or plasma aspartate aminotransferase measurement (enzymatic activity/ volume) 15 U/L 5-34 Serum or plasma alanine aminotransferase measurement (enzymatic activity/volume ) 23 U/L 0-55 Serum or plasma protein measurement (mass/volume) 6.3 g/dL 6.4-8.2 Serum or plasma albumin measurement (mass/volume) 3.6 g/dL 3.2-4.5 LIPID PANEL - 12/11/16 14:10 CHOLESTEROL, TOTAL 160 mg/dL <200 HDL CHOLESTEROL 58 mg/dL >40 TRIGLYCERIDES 64 mg/dL <150 LDL-CHOLESTEROL 87 mg/dL (calc) NRG CHOL/HDLC RATIO 2.8 (calc) <5.0 NON HDL CHOLESTEROL 102 mg/dL (calc) <130 TSH - 12/11/16 14:10 TSH 0.84 mIU/L 0.40-4.50 CBC With Platelet and Differential - 03/01/17 17:39 Absolute Basophils 0.02 10*3/uL 0.00-0.20 Absolute Eosinophils 0.04 10*3/uL 0.00-0.50 Absolute Lymphocytes 1.45 10*3/uL 0.80-3.30 Absolute Monocytes 0.65 10*3/uL 0.30-1.00 Absolute Neutrophils 3.06 10*3/uL 1.90-7.00 Basophils 0 % 0-2 Eosinophils 1 % 0-4 HCT 43.7 % 42.0-52.0 HGB 15.1 g/dL 14.0-18.0 Immature Granulocytes 0.4 % 0.0-1.0 Lymphocytes 28 % 20-46 MCH 31.4 pg 27.0-32.0 MCHC 34.6 g/dL 32.0-36.0 MCV 90.9 fL 82.0-99.0 Monocytes 12 % 4-11 MPV 8.9 fL 9.4-12.3 Neutrophils 58 % 51-75 Nucleated RBC Automated 0.0 /100 WBC Platelet Count 274 K/uL 150-400 RBC 4.81 10*6/uL 4.60-6.20 RDW 12.1 % 11.5-14.5 WBC 5.2 K/uL 4.8-10.8 Troponin - 03/01/17 17:39 Troponin <0.05 ng/mL <0.06 Comprehensive Metabolic Panel (CMP) - 03/01/17 17:39 Albumin 4.0 g/dL 3.5-4.8 Alkaline Phosphatase 64 U/L 26-104 ALT (SGPT) 12 U/L 17-63 Anion Gap 4 mEq/L 3-20 AST (SGOT) 16 U/L 15-41 Bilirubin Total 0.8 mg/dL 0.2-1.2 BUN 12 mg/dL 4-20 Calcium 9.0 mg/dL 8.6-10.0 Chloride 107 mEq/L 99-109 CO2 27 mEq/L 22-32 Creatinine 0.75 mg/dL 0.64-1.27 Globulin 2.6 g/dL 1.9-4.3 Glucose 97 mg/dL 70-100 Potassium 3.9 mEq/L 3.6-5.1 Protein 6.6 g/dL 6.1-7.9 Sodium 138 mEq/L 136-144 eGFR - 03/01/17 17:39 eGFR >60 mL/min >60 Encounters ACCT No. Visit Date/Time Discharge Status Pt. Type Provider Facility Loc./Unit Complaint [id number] 02/07/2014 11:02:00 02/07/2014 23:59:00 DIS Outpatient CheleKimberlee pete WEB APPLICATION TESTER [facility].IMG.RA [id number] 10/30/2016 12:11:00 10/31/2016 12:14:00 DIS Outpatient DAVID TAYLOR, FLORENTINO Caal (DDU) [facility] REHAB BROKEN VERTEBRA IN NECK,CENTRAL CORE SYNDROME,R LE [id number] 09/03/2016 00:16:00 09/03/2016 23:59:59 CLS Preadmit CHASITY VIEYRA MD [facility] REHAB NEUROPATHY [id number] 07/15/2016 15:16:00 09/02/2016 00:01:00 DIS Outpatient CHASITY VIEYRA MD [facility] REHAB NEUROPATHY [id number] 04/30/2016 16:27:00 05/16/2016 16:15:00 DIS Inpatient PRINCESS TURNER MD [facility] IRF CERVICAL SPINE FRACTURE [id number] 04/23/2016 05:46:00 04/23/2016 10:48:00 DIS Emergency BUZZ JIMENEZ MD [facility] ER HYPOTHERMIA,RT LEG PAIN [id number] 12/11/2016 13:00:00 Document Registration [id number] 03/01/2017 15:38:00 03/01/2017 19:01:00 DIS Emergency Landaverde Jacob [facility] on [facility] ED migraine, chest pain [id number] 09/16/2016 07:08:00 09/16/2016 13:35:00 DIS Outpatient Sainz Timothy [facility] on [facility] KENTRELLU Unspecified nondisplaced fracture of fifth cervical vertebra [id number] 03/02/2017 05:16:01 Document Registration [id number] 09/17/2016 05:15:55 Document Registration [id number] 08/18/2017 10:40:00 08/18/2017 23:59:[address] [facility] Outpatient MARISEL HALL LAC [facility]
--- OUTSIDE RECORDS SUMMARY | 2017-11-24 12:45 | XMS REPORT ---
Author Author CHASITY VIEYRA Organization [facility] Address [address] [place] [address] Care Team Providers Care Sales Exhibitor Name Role Phone CHASITY VIEYRA Unavailable PROBLEMS Type Condition ICD9-CM Code XOX01-KI Code Onset Dates Condition Status SNOMED Code Problem Cervical spinal cord injury, sequela S14.109S Active 345918844 Problem Arthritis M19.90 Active 0990494 Problem Lumbago with sciatica, right side M54.41 Active 144316621 Problem Neuropathy G62.9 Active 881357620 ALLERGIES No Known Allergies SOCIAL HISTORY Never Assessed PLAN OF CARE Activity Details Follow Up 2 Months Reason: VITAL SIGNS Height 5 ft 9 in in 2016-06-20 Weight 132.6 lbs 2016-06-20 Temperature 98.0 degrees Fahrenheit 2016-06-20 Heart Rate 74 bpm 2016-06-20 Respiratory Rate 18 2016-06-20 BMI 19.58 kg/m2 2016-06-20 Blood pressure systolic 118 mmHg 2016-06-20 Blood pressure diastolic 62 mmHg 2016-06-20 MEDICATIONS Medication Instructions Dosage Frequency Start Date End Date Duration Status Cymbalta 30 MG Orally Twice a day 1 capsule 12h June, 30 day(s) Active Hydrocodone-Acetaminophen 7.5-325 MG Orally 4 times a day 1 tablet as needed 6h June, 28 days Active Neurontin 600 MG Orally Three times a day 1 8h 30 days Active Diclofenac Sodium 75 MG Orally Twice a day 1 tablet with food or milk 12h June, Oct, 30 day(s) Active Baclofen 10 mg Orally Three times a day as needed for muscle spasm 1 tablet with food or milk 30 days Active RESULTS No Results PROCEDURES No Known procedures IMMUNIZATIONS No Known Immunizations MEDICAL (GENERAL) HISTORY Type Description Date Medical History Cervical fx of 5-6 Medical History Central cord syndrome Surgical History Partial fusion of C2-3 04/2016 [facility]
--- OUTSIDE RECORDS SUMMARY | 2017-11-24 12:45 | XMS REPORT ---
Author Author CHASITY VIEYRA Organization [facility] Address [address] [place] [address] Care Team Providers Care Supply Chain Tech Name Role Phone CHASITY VIEYRA Unavailable PROBLEMS Type Condition ICD9-CM Code EIQ60-DE Code Onset Dates Condition Status SNOMED Code Problem Cervical spinal cord injury, sequela S14.109S Active 125422295 Problem Arthritis M19.90 Active 7496351 Problem Lumbago with sciatica, right side M54.41 Active 379382692 Problem Neuropathy G62.9 Active 193827633 ALLERGIES No Information ENCOUNTERS Encounter Location Date Diagnosis [place] [address] [address] May, [place] [address] [place] [id number] [place] [phone] Apr, [place] [address] [address] Apr, Onychomycosis B35.1 and Nail dystrophy L60.3 [place] [address] [place] [id number] [place] [address] Apr, Cervical spinal cord injury, sequela S14.109S [place] [address] [address] Apr, [facility] current use of opiate analgesic Z79.891 ; Cervical spinal cord injury, sequela S14.109S ; Neuropathy G62.9 and Onychomycosis B35.1 [place] [address] [place] [id number] [place] [address] Mar, Onychomycosis B35.1 [place] [address] [place] [id number] [place] [address] Mar, Cervical spinal cord injury, sequela S14.109S [facility] [address] [place] [id number] [place] [address] Feb, Cervical spinal cord injury, sequela S14.109S [facility] [address] [place] [id number] [place] [address] Jan, Lumbago with sciatica, right side M54.41 [facility] [address] [place] [id number] [place] [address] Dec, Cervical spinal cord injury, sequela S14.109S and Reactive depression F32.9 [facility] [address] [place] [id number] Dec, Lumbago with sciatica, right side M54.41 [facility] [address] [place] [id number] [place] [address] 25[address] Nov, Lumbago with sciatica, right side M54.41 [facility] [address] [place] [id number] [place] [address] Oct, Lumbago with sciatica, right side M54.41 [facility] [address] [place] [id number] [place] [address] 25[address] Sep, Lumbago with sciatica, right side M54.41 [facility] [address] [place] [id number] [place] [address] Sep, Lumbago with sciatica, right side M54.41 [facility] [address] [place] [id number] [place] [address] 2546 Aug, Cervical spinal cord injury, sequela S14.109S and Lumbago with sciatica, right side M54.41 [facility] [address] [place] [id number] [place] [address] 2546 Aug, Neuropathy G62.9 [facility] [address] [place] [id number] [place] [phone] Jul, Neuropathy G62.9 [facility] [address] [facility] [id number] [place] [address] June, Lumbago with sciatica, right side M54.41 ; Neuropathy G62.9 and Arthritis M19.90 [facility] [address] [facility] [id number] [place] [address] May, Neuropathy G62.9 ; Lumbago with sciatica, right side M54.41 and Cervical spinal cord injury, initial encounter S14.109A IMMUNIZATIONS No Known Immunizations SOCIAL HISTORY Never Assessed REASON FOR VISIT Hydrocodone- 10/13 PLAN OF CARE VITAL SIGNS MEDICATIONS Medication Instructions Dosage Frequency Start Date End Date Duration Status Hydrocodone-Acetaminophen 7.5-325 MG Orally 3 times a day 1 tablet as needed 8h Oct, 28 days Active RESULTS No Results PROCEDURES No Known procedures INSTRUCTIONS MEDICATIONS ADMINISTERED No Known Medications MEDICAL (GENERAL) HISTORY Type Description Date Medical History Cervical fx of 5-6 Medical History Central cord syndrome Surgical History Partial fusion of C2-3 04/2016 [facility]
[2017-11-24 12:47] LABS: BASOPHILS % (AUTO) 0 % (0-10); EOSINOPHILS % (AUTO) 1 % (0-10); HEMATOCRIT 43 % (40-54); HEMOGLOBIN 15.1 G/DL (13.3-17.7); LYMPHOCYTES # (AUTO) 1.1 X 10^3 (1.0-4.0); LYMPHOCYTES % (AUTO) 26 % (12-44); MEAN CORPUSCULAR HEMOGLOBIN 32 PG (25-34); MEAN CORPUSCULAR HGB CONC 35 G/DL (32-36); MEAN CORPUSCULAR VOLUME 90 FL (80-99); MEAN PLATELET VOLUME 8.4 FL (7.4-10.4); MONOCYTES # (AUTO) 0.4 X 10^3 (0.0-1.0); MONOCYTES % (AUTO) 10 % (0-12); NEUTROPHILS # (AUTO) 2.7 X 10^3 (1.8-7.8); NEUTROPHILS % (AUTO) 64 % (42-75); PLATELET COUNT 231 10^3/uL (130-400); RED CELL DISTRIBUTION WIDTH 12.9 % (10.0-14.5); WHITE BLOOD COUNT 4.2 10^3/uL (4.3-11.0)
[2017-11-24 13:07] LABS: INR 0.9 (0.8-1.4); PROTHROMBIN TIME PATIENT 12.5 SEC (12.2-14.7)
[2017-11-24 13:14] LABS: ALANINE AMINOTRANSFERASE 16 U/L (0-55); ALBUMIN 4.5 GM/DL (3.2-4.5); ALKALINE PHOSPHATASE 45 U/L (40-136); BILIRUBIN,TOTAL 0.6 MG/DL (0.1-1.0); BUN/CREATININE RATIO 15; CALCIUM 9.3 MG/DL (8.5-10.1); CARBON DIOXIDE 24 MMOL/L (21-32); CHLORIDE 106 MMOL/L (98-107); CREATININE SERUM 0.87 MG/DL (0.60-1.30); GFR ESTIMATED > 60; GLUCOSE 84 MG/DL (70-105); MAGNESIUM 2.1 MG/DL (1.8-2.4); POTASSIUM 3.8 MMOL/L (3.6-5.0); SODIUM 139 MMOL/L (135-145); TOTAL PROTEIN 7.2 GM/DL (6.4-8.2)
[2017-11-24 13:21] LABS: MYOGLOBIN SERUM 45.2 NG/ML (10.0-92.0)
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
[2017-11-24] MEDS ORDERED: ORPHENADRINE 60 MG/2 ML (NORFLEX) AMP IV ONE (13:45)
[2017-11-24] MEDS ORDERED: KETOROLAC 30 MG/ML VIAL IVP ONE (13:45)
--- NOTE | 2017-11-24 14:45 | Diagnostic Imaging Report ---
INDICATION: Chest pain. TIME OF EXAM: 01:28 p.m. Correlation is made with prior chest x-ray from 03/01/2017. The heart size is normal. The pulmonary vascularity is unremarkable. The lungs are clear. No infiltrate, effusion or pneumothorax is detected. IMPRESSION: No acute cardiopulmonary process is detected. Dictated by: Dictated on workstation # [id number]
[2017-11-24 17:36] VITALS: BP 121/73
== END 2017-11-24 17:36 | disposition home or self-care (01) ==
LOC: EDUNIT# 12:23 → ER 12:25
DX: M54.2 Cervicalgia (principal); G89.29 Other chronic pain; R07.89 Other chest pain; F17.210 Nicotine dependence, cigarettes, uncomplicated
CPT/HCPCS: 36415; 71045; 80053; 83735; 83874; 84484; 85025; 85610; 85730; 93005; 93041; 96374; 96375

== ENCOUNTER → 2018-05-17 | Outpatient (RCR) | payer MEDICAID | END | disposition home or self-care (01) | PROVIDERS: ATTEND Internal Medicine | DX: M54.5 Low back pain (principal); S14.109S Unspecified injury at unspecified level of cervical spinal cord, sequela; R20.2 Paresthesia of skin; Z98.1 Arthrodesis status ==

== ENCOUNTER 2018-06-09 09:43 | Outpatient (RCR) | payer MEDICAID | END 2018-07-09 15:22 | disposition home or self-care (01) | PROVIDERS: ATTEND Internal Medicine | DX: M54.5 Low back pain (principal); S14.109S Unspecified injury at unspecified level of cervical spinal cord, sequela; R20.2 Paresthesia of skin; Z98.1 Arthrodesis status ==

== ENCOUNTER 2018-09-13 20:48 | Emergency (ER) | payer MEDICAID, MEDICARE ==
[~2018-09-13] VITALS: Ht 175.3 cm; Wt 63.5 kg
[2018-09-13 21:42] LABS: BILIRUBIN,URINE NEGATIVE (NEGATIVE); CLARITY,URINE SLIGHTLY CLOUDY; COLOR,URINE YELLOW; GLUCOSE, URINE (UA) NEGATIVE (NEGATIVE); KETONES,URINE NEGATIVE (NEGATIVE); LEUKOCYTE ESTERASE ,URINE 2+ (NEGATIVE); NITRITE,URINE NEGATIVE (NEGATIVE); PH,URINE 6.5 (5-9); PROTEIN,URINE 1+ (NEGATIVE); UROBILINOGEN,URINE NORMAL (NORMAL)
[2018-09-13] MEDS ORDERED: LACTATED RINGERS 1,000 ML IV SCH (21:45)
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
[2018-09-13 21:47] LABS: BASOPHILS % (AUTO) 0 % (0-10); EOSINOPHILS # (AUTO) 0.2 10^3/uL (0.0-0.3); EOSINOPHILS % (AUTO) 3 % (0-10); HEMATOCRIT 41 % (40-54); HEMOGLOBIN 14.5 G/DL (13.3-17.7); LYMPHOCYTES # (AUTO) 1.7 X 10^3 (1.0-4.0); LYMPHOCYTES % (AUTO) 33 % (12-44); MEAN CORPUSCULAR HEMOGLOBIN 32 PG (25-34); MEAN CORPUSCULAR HGB CONC 35 G/DL (32-36); MEAN CORPUSCULAR VOLUME 91 FL (80-99); MEAN PLATELET VOLUME 8.7 FL (7.4-10.4); MONOCYTES # (AUTO) 0.6 X 10^3 (0.0-1.0); MONOCYTES % (AUTO) 11 % (0-12); NEUTROPHILS # (AUTO) 2.6 X 10^3 (1.8-7.8); NEUTROPHILS % (AUTO) 53 % (42-75); PLATELET COUNT 201 10^3/uL (130-400); RED CELL DISTRIBUTION WIDTH 12.3 % (10.0-14.5)
[2018-09-13 21:54] LABS: BACTERIA,URINE TRACE /HPF; RBC,URINE 50-100 /HPF; SQUAMOUS EPITHELIAL CELL,UR RARE /HPF
[2018-09-13 21:59] LABS: TRICHOMONAS,URINE FEW /HPF
[2018-09-13] MEDS ORDERED: METR500T PO (22:03)
[2018-09-13 22:07] LABS: ALANINE AMINOTRANSFERASE 16 U/L (0-55); ALBUMIN 4.2 GM/DL (3.2-4.5); ALKALINE PHOSPHATASE 69 U/L (40-136); BILIRUBIN,TOTAL 0.3 MG/DL (0.1-1.0); BUN/CREATININE RATIO 17; CALCIUM 9.5 MG/DL (8.5-10.1); CARBON DIOXIDE 24 MMOL/L (21-32); CHLORIDE 105 MMOL/L (98-107); CREATININE SERUM 1.09 MG/DL (0.60-1.30); GFR ESTIMATED > 60; GLUCOSE 82 MG/DL (70-105); POTASSIUM 4.3 MMOL/L (3.6-5.0); SODIUM 140 MMOL/L (135-145); TOTAL PROTEIN 6.6 GM/DL (6.4-8.2)
[2018-09-13 23:25] VITALS: BP 119/89
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
== END 2018-09-13 22:30 | disposition home or self-care (01) ==
LOC: EDUNIT# 20:48 → ER 20:49
DX: A59.03 Trichomonal cystitis and urethritis (principal); R31.9 Hematuria, unspecified; F17.210 Nicotine dependence, cigarettes, uncomplicated
CPT/HCPCS: 36415; 74176; 80053; 81000; 84153; 85025

== ENCOUNTER 2021-10-14 13:56 | Emergency (ER) | payer MEDICARE, OTHER ==
[~2021-10-14] VITALS: Ht 175 cm; Wt 63.0 kg
[~2021-10-14 13:56] MED LIST changes: +METR500T PO; -OXYC-464 PO; +OXYC1TAB15 PO
--- NOTE | 2021-10-14 14:41 | ED Cough/URI ---
General Chief Complaint: COVID19 Suspect/Confirmed Stated Complaint: COVID + HOME TEST/CAN'T TASTE/COUGH/CONGESTION Nursing Triage Note: PT STATES + COVID HOME TEST YESTERDAY, CC OF COUGH, LOSS OF TASTE AND SMELL, DIARRHEA History of Present Illness Date Seen by Provider: Oct 14, 2021 Time Seen by Provider: 14:25 Initial Comments 46-year-old male who is otherwise healthy presents emergency department today for cough, sore throat and runny nose. He took a home COVID test which was positive. Girlfriend is home has COVID as well. He did lose his taste and smell. Symptoms present x2 days now. Allergies and Home Medications Allergies Coded Allergies: No Known Drug Allergies (Unverified , 04/23/16) Patient Home Medication List Home Medication List Reviewed: Yes Baclofen (Baclofen) 10 Mg Tablet, 10 MG PO TID PRN for SPASMS Prescribed by: PRINCESS TURNER on 05/15/16914 Gabapentin (Gabapentin) 300 Mg Capsule, 300 MG PO TID Prescribed by: PRINCESS TURNER on 05/15/16914 Metronidazole (Flagyl) 500 Mg Tablet, 500 MG PO BID Prescribed by: MIYA LARSON on 09/13/182202 Oxycodone HCl/Acetaminophen (Oxycodon-Acetaminophen 7.5-325) 1 Each Tablet, 2 EACH PO Q4H PRN for MODERATE PAIN Prescribed by: PRINCESS TURNER on 05/15/16914 Sennosides/Docusate Sodium (Senna-Time S Tablet) 1 Each Tablet, 1 EA PO BID Prescribed by: PRINCESS TURNER on 05/15/16914 Review of Systems Review of Systems Constitutional: chills, fever EENTM: nose congestion Respiratory: cough Cardiovascular: no symptoms reported Gastrointestinal: no symptoms reported Genitourinary: no symptoms reported Musculoskeletal: no symptoms reported Skin: no symptoms reported Psychiatric/Neurological: No Symptoms Reported Hematologic/Lymphatic: No Symptoms Reported Immunological/Allergic: no symptoms reported Past [place]-Pf[facility] Hx Patient Social History Tobacco Use?: Yes Use of E-Cig and/or Vaping dev: No Substance use?: No Alcohol Use?: No Seasonal Allergies Seasonal Allergies: No Past Medical History Surgeries: Yes (neck) Neurological Respiratory: No Cardiac: No Neurological: Yes Reproductive Disorders: No Sexually Transmitted Disease: Yes (clamydia and gonnerhea) HIV/AIDS: No Genitourinary: No Gastrointestinal: No Musculoskeletal: Yes Back Injury Endocrine: No HEENT: Yes (farslighted) Loss of Vision: Bilateral Hearing Impairment: Denies Cancer: No Psychosocial: No Integumentary: No Blood Disorders: No Adverse Reaction/Blood Tranf: No Family Medical History Reviewed Nursing Family Hx No Pertinent Family Hx Physical Exam Vital Signs - First Documented 10/14/21 14:26 Temp 36.8 Pulse 73 Resp 20 B/P (MAP) 122/78 (93) Pulse Ox 98 O2 Delivery Room Air Capillary Refill : Less Than 3 Seconds Height: 5'9.00" Weight: 140lbs. 0.2oz. [id number]; 20.00 BMI Method:Stated General Appearance: WD/WN, no apparent distress HEENT: PERRL/EOMI, normal ENT inspection, TMs normal, pharynx normal Neck: non-tender, full range of motion, supple, normal inspection Respiratory: chest non-tender, lungs clear, normal breath sounds, no respiratory distress, no accessory muscle use Cardiovascular: regular rate, rhythm, no edema, no gallop, no JVD, no murmur Gastrointestinal: normal bowel sounds, non tender, soft, no organomegaly, no pulsatile mass Extremities: normal range of motion, non-tender, normal inspection, no pedal edema, no calf tenderness, normal capillary refill Neurologic/Psychiatric: no motor/sensory deficits, alert, normal mood/affect, oriented x 3 Skin: normal color, warm/dry Progress/Results/Core Measures Suspected Sepsis SIRS Temperature: Pulse: 73 Respiratory Rate: 20 Blood Pressure 122 /78 Mean: 93 Results/Orders Vital Signs/I&O 10/14/21 14:26 Temp 36.8 Pulse 73 Resp 20 B/P (MAP) 122/78 (93) Pulse Ox 98 O2 Delivery Room Air Capillary Refill : Less Than 3 Seconds Blood Pressure Mean: 93 Departure Communication (Admissions) Patient is hemodynamically stable. Test no indication for testing here. Normal oxygen. Discharged in stable condition with supportive care. Impression Primary Impression: COVID-19 Disposition: 01 HOME, SELF-CARE Condition: Stable Departure-Patient Inst. Decision time for Depature: 14:39 Referrals: CHASITY VIEYRA MD (PCP) Primary Care Physician [facility] (Family) Primary Care Physician Patient Instructions: COVID-19 (DC) Add. Discharge Instructions: Quarantine for 5 days or if you are still having fevers you need to be fever free for 24 hours before returning to work. Increase your fluids and rest. Follow-up with primary doctor in the next 3 to 4 days. All discharge instructions reviewed with patient and/or family. Voiced understanding. Work/School Note: Work Release Form Date Seen in the Emergency Department: Oct 14, 2021 Return to Work: Oct 17, 2021 JEAN CARLOS DAVILA DO Oct 14, 2021 14:41
[2021-10-14 15:00] VITALS: BP 122/78
== END 2021-10-14 15:00 | disposition home or self-care (01) ==
LOC: EDUNIT# 13:56 → ER 13:59
DX: U07.1 COVID-19 (principal); Z73.0 Burn-out; Z28.311 Partially vaccinated for COVID-19
CPT/HCPCS: 99282